=== PATIENT | male | born 1985 | race Caucasian/White ===

== ENCOUNTER 2020-03-29 19:00 | Emergency (ER) | payer OTHER, SELFPAY ==
[2020-03-29 19:02] VITALS: BP 174/86; PULSE 93; RESP 22; TEMP 36.6; O2SAT 96; BMI 34.3
--- NOTE | 2020-03-29 19:20 | XR_ITS ---
EXAMINATION: XR CHEST CLINICAL INFORMATION: Asthma exacerbation COMPARISON: 02/19/2020 TECHNIQUE: 2 views of the chest were obtained. FINDINGS: No significant abnormality is noted involving the heart, lungs, mediastinum, bony thorax or soft tissues. XR/XR chest 2V IMPRESSION: Unremarkable examination.
--- NOTE | 2020-03-29 19:24 | ED.ASTHMA ---
HPI - Asthma General Chief Complaint: Asthma Stated Complaint: ASTHMA Time Seen by Provider: 03/29/20 19:20 Source: patient Mode of arrival: ambulatory Limitations: no limitations History of Present Illness HPI Narrative: 34 year old male comes into the ER tonight with c/o chest tightness and shortness of breath. H/O asthma, has albuterol mresuce inhaler as well as nebulizer at home. States he ran out of the solution medication for his neb treatments. Denies N/V/F/C, no COVID-19 exposure. Admits to cough, productive some of the time. MD complaint: shortness of breath and wheezing Onset (ago): hour(s) (2-3 ) Severity: moderate Context: ran out of meds and allergen exposure Associated symptoms: productive cough (sometimes) Asthma History: childhood onset Treatments Prior to Arrival: inhaled bronchodilator and inhaled steroid Related Data Current Asthma Therapy: inhaled bronchodilator and inhaled steroid Previous Rx's Medication Instructions Recorded atorvastatin 20 mg tablet 20 mg PO DAILY 30 Days #30 tab 03/03/20 fluticasone 232mcg-salmeterol 1 inh INHALATION BID 30 Days #1 ea 03/03/20 14mcg/actuation breath act,powder sensor omeprazole 20 mg capsule,delayed 20 mg PO DAILY 30 Days #30 cap 03/03/20 release albuterol sulfate 0.63 mg INHALATION Q4-6H PRN #75 ml 03/29/20 albuterol sulfate 2 puff INHALATION Q6H PRN #8.5 g 03/29/20 Allergies Allergy/AdvReac Type Severity Reaction Status Date / Time banana [BANANA] Allergy Unknown ITCHING Verified 03/29/20 19:05 Review of Systems Constitutional: Constitutional: Denies body ache(s), Denies chills, Denies fatigue, Denies fever(s), Denies frequent falls, Denies headache(s), Denies malaise and Denies weakness Eyes: Eyes: Denies change in vision, Denies itchy eyes, Denies other visual disturbances, Denies eye pain and Denies requires corrective lenses ENT: Denies change in voice, Denies dysphagia, Denies dizziness, Denies headache(s), Denies hearing loss, Denies nasal discharge, Denies neck pain, Denies sinus pressure and Denies sore throat Cardiovascular: Cardiovascular: Denies chest pain, Denies Epigastric Pain, Denies syncope, Denies leg edema, Denies lightheadedness, Reports dyspnea and Reports dyspnea on exertion Respiratory: Respiratory: Reports chest congestion, Reports cough, Reports dyspnea, Reports dyspnea on exertion and Reports wheezing Gastrointestinal: Gastrointestinal: Denies abdominal pain, Denies change in bowel habits, Denies constipation, Denies dysphagia, Denies diarrhea, Denies nausea and Denies vomiting Genitourinary: Genitourinary: Denies difficulty urinating, Denies dysuria, Denies flank pain, Denies urinary frequency and Denies urinary incontinence Musculoskeletal: Musculoskeletal: Denies abnormal gait, Denies back pain, Denies myalgias, Denies deformity, Denies arthralgias, Denies muscle weakness, Denies neck pain, Denies stiffness and Denies tingling Integumentary/Breasts: Skin/Breast: Denies swelling, Denies pruritus, Denies lesions, Denies nail changes, Denies erythema, Denies rash, Denies sores and Denies unusual bruising Neurologic: Denies abnormal gait, Denies dizziness, Denies syncope, Denies frequent falls, Denies headache(s), Denies memory loss, Denies tingling and Denies weakness Psychiatric: Psychiatric: Denies anxiety, Denies depression, Denies irritability and Denies memory loss Endocrine: Endocrine: Denies fatigue Hematologic/Lymphatic: Hematologic/Lymphatic: Denies easy bleeding, Denies easy bruising and Denies lymphadenopathy Allergic/Immunologic: Allergic/Immunologic: Denies itchy eyes and Reports wheezing PMFSH Past Medical History Medical History (Updated 03/29/20 @ 20:50 by DANIELLA Ansari) Asthma GERD (gastroesophageal reflux disease) Surgical History (Updated 03/17/20 @ 06:02 by TOMEKA Carbone) History of facial surgery Family History Family History (Updated 03/17/20 @ 06:03 by TOMEKA Carbone) Father Alive and well Mother Alive and well Family/Other Cancer Social History Social History Advance Directives: No Advance Directives Information Provided: No Physical Exam Vital Signs: Vital Signs: Vital Signs Temp Pulse Resp BP Pulse Ox 03/29/20 20:53 89 17 151/98 H 96 03/29/20 19:02 97.8 F 93 22 H 174/86 H 96 Body Mass Index 34.3 Const: General: cooperative, well developed, alert, awake, acute distress (respiratory) moderate and anxious Nutritional Appearance: well nourished Orientation/consciousness: patient oriented x3 Limitations: no limitations HENMT: Head: Yes normal to inspection Ears: hearing grossly normal bilaterally Mouth: Normal oral and palatal mucosa present and tongue abnormal Throat: Yes posterior oropharynx normal Eyes: General: appearance normal, both eyes and all related structures Neck: Neck: Yes normal visual inspection, Yes full ROM and No lymphadenopathy Chest: Chest palpation & inspection: normal inspection of the chest Resp: Effort & Inspection: Actively coughing and respiratory distress Auscultation: wheezes expiratory wheezes, inspiratory wheezes, lower bilaterally, upper bilaterally and posterior Cardio: Jugular venous distension: no JVD Rate: regular rate Rhythm: regular rhythm GI: Inspection: Yes normal to inspection Skin: General skin exam: no rashes or lesions noted Nails: normal, no clubbing, no splinter hemorrhages and no spooning Neuro: General: patient oriented x3 Cognition (Neuro): normal cognition Gait exam (Neuro): Normal gait present Extrem: General: Yes normal to inspection, Yes no pedal edema, Yes normal gait, No calf tenderness, No clubbing, No cyanosis and No pedal edema Psych: Appearance: grossly normal Mental Status: mental status grossly normal Speech and movement: Normal speech and movement present Affect: normal affect Attitude: cooperative Thought process: Normal thought process present Thought content: Normal thought content present Insight: Good insight present (Psych) Judgement: Good judgement present (Psych) Course Course Course Narrative: Evaluated for exacerbation of asthma. Ausculation revealed bilateral inspir/expir wheezing. Recommend CXR, PO steroids and Resp TX MDM - Asthma MDM Narrative Medical decision making narrative: Asthma Differential Diagnosis Differential diagnosis: Likely Acute exacerbation, Acute asthmatic bronchitis and Pneumonia Imaging Data Chest x-ray: Radiologist's impression: [address] [address] XRay Report Signed Patient: Ava Richards#: [id number] : 1985Acct:[id number] Age/Sex: 34 / MADM Date: 03/29/20 Loc: HO.ED Attending Dr: Ordering Physician: ASHVIN LEIGH Date of Service: 03/29/20 Procedure(s): XR chest 2V Accession Number(s): [id number] cc: ASHVIN LEIGH~ EXAMINATION: XR CHEST CLINICAL INFORMATION: Asthma exacerbation COMPARISON: 02/19/2020 TECHNIQUE: 2 views of the chest were obtained. FINDINGS: No significant abnormality is noted involving the heart, lungs, mediastinum, bony thorax or soft tissues. XR/XR chest 2V IMPRESSION: Unremarkable examination. Dictated By:GARY LAROSE MD Signed By:<Electronically signed by GARY LAROSE MD in OV>03/29/201931 DD/ 19 TD/TT: Supervisor Dog License Officer: [address] [address] XRay Report Signed Patient: Ava Richards#: [id number] : 1985Acct:[id number] Age/Sex: 34 / MADM Date: 03/29/20 Loc: .ED Attending Dr: Ordering Physician: ASHVIN LEIGH Date of Service: 03/29/20 Procedure(s): XR chest 2V Accession Number(s): [id number] cc: ASHVIN LEIGH~ EXAMINATION: XR CHEST CLINICAL INFORMATION: Asthma exacerbation COMPARISON: 02/19/2020 TECHNIQUE: 2 views of the chest were obtained. FINDINGS: No significant abnormality is noted involving the heart, lungs, mediastinum, bony thorax or soft tissues. XR/XR chest 2V IMPRESSION: Unremarkable examination. Dictated By:GARY LAROSE MD Signed By:<Electronically signed by GARY LAROSE MD in OV>03/29/201931 DD/ 19 TD/TT: Supervisor Dog License Officer: [address] [address] XRay Report Signed Patient: Ava Richards#: [id number] : 1985Acct:[id number] Age/Sex: 34 / MADM Date: 03/29/20 Loc: .ED Attending Dr: Ordering Physician: ASHVIN LEIGH Date of Service: 03/29/20 Procedure(s): XR chest 2V Accession Number(s): [id number] cc: ASHVIN LEIGH~ EXAMINATION: XR CHEST CLINICAL INFORMATION: Asthma exacerbation COMPARISON: 02/19/2020 TECHNIQUE: 2 views of the chest were obtained. FINDINGS: No significant abnormality is noted involving the heart, lungs, mediastinum, bony thorax or soft tissues. XR/XR chest 2V IMPRESSION: Unremarkable examination. Dictated By:GARY LAROSE MD Signed By:<Electronically signed by GARY LAROSE MD in OV>03/29/201931 DD/ 19 TD/TT: Supervisor Dog License Officer: [place] [address] XRay Report Signed Patient: Ava Richards#: [id number] : 1985Acct:[id number] Age/Sex: 34 / MADM Date: 03/29/20 Loc: .ED Attending Dr: Ordering Physician: ASHVIN LEIGH Date of Service: 03/29/20 Procedure(s): XR chest 2V Accession Number(s): [id number] cc: ASHVIN LEIGH~ EXAMINATION: XR CHEST CLINICAL INFORMATION: Asthma exacerbation COMPARISON: 02/19/2020 TECHNIQUE: 2 views of the chest were obtained. FINDINGS: No significant abnormality is noted involving the heart, lungs, mediastinum, bony thorax or soft tissues. XR/XR chest 2V IMPRESSION: Unremarkable examination. Dictated By:GARY LAROSE MD Signed By:<Electronically signed by GARY LAROSE MD in OV>03/29/201931 DD/ 19 TD/TT: Supervisor Dog License Officer: Discharge Plan Discharge Clinical Impression: Moderate persistent asthma Patient Disposition: Home, Self-Care Instructions: Asthma (ED) Prescriptions: New albuterol sulfate 90 mcg/actuation HFA aerosol inhaler 2 puff inhalation Q6H PRN (Reason: shortness of breath or wheezing) Qty: 8.5 RF: 2 albuterol sulfate 0.63 mg/3 mL solution for nebulization 0.63 mg inhalation Q4-6H PRN (Reason: shortness of breath or wheezing) Qty: 75 RF: 0 No Action AirDuo Digihaler 232-14 mcg/actuation aero powdr breath act w/sensor 1 inh inhalation BID 30 Days Qty: 1 RF: 2 atorvastatin 20 mg tablet 20 mg PO DAILY 30 Days Qty: 30 RF: 3 omeprazole 20 mg capsule,delayed release(DR/EC) 20 mg PO DAILY 30 Days Qty: 30 RF: 3 Interventions: ED Discharge Assessment Last Done: 03/29/20 21:07 Discharge Date/Time: 03/29/20 21:07
[2020-03-29] MEDS: predniSONE 20 MG TABLET 60 MG PO (19:33)
[2020-03-29] MEDS: Albuterol/Iprat 2.5/0.5MG 3 ML AMPUL.NEB INHALE (20:35)
[2020-03-29 20:53] VITALS: BP 151/98; PULSE 89; RESP 17; O2SAT 96
== END 2020-03-29 21:07 | disposition home or self-care (01) ==
PROVIDERS: Emergency Provider Internal Medicine; PCP Physician Assistant
DX: J45.40 Moderate persistent asthma, uncomplicated (principal); Z79.899 Other long term (current) drug therapy; Z20.828 Contact with and (suspected) exposure to other viral communicable diseases
CPT/HCPCS: 71046; 99284

== ENCOUNTER 2020-05-09 09:50 | Outpatient (REF) | payer OTHER, SELFPAY ==
--- NOTE | 2020-05-09 13:22 | PFT_ITS ---
Forced vital capacity is normal. FEV1 is slightly reduced. FEF 25-75 is moderately reduced. MVV is slightly reduced. Bronchodilator challenge was not done as patient had used the rescue inhaler just before coming for the test. Total lung capacity, normal. Residual volume moderately increased. Diffusion capacity normal. CONCLUSION: These results show mild degree of obstructive airway disorder. As noted above bronchodilator challenge was not performed. Clinical correlation recommended. MD [facility] Hawthorne/GUILLAUME / [id number]
== END 2020-05-09 09:51 | disposition home or self-care (01) ==
LOC: HO.RESP 09:50
PROVIDERS: PCP Internal Medicine; Visit Provider Physician Assistant
DX: J45.40 Moderate persistent asthma, uncomplicated (principal)
CPT/HCPCS: 94010; 94727; 94729

== ENCOUNTER → 2020-05-13 08:16 | Outpatient (BNVA) | payer OTHER, SELFPAY | PROVIDERS: PCP Internal Medicine; Visit Provider Nurse Practitioner Family | DX: Z76.89 Persons encountering health services in other specified circumstances (principal) ==

== ENCOUNTER → 2020-07-22 09:57 | Outpatient (BNVA) | payer OTHER, SELFPAY | PROVIDERS: PCP Internal Medicine; Visit Provider Nurse Practitioner Family ==

== ENCOUNTER 2020-08-06 11:40 | Emergency (ER) | payer OTHER, SELFPAY ==
--- NOTE | ~2020-08-06 | XR_ITS ---
EXAMINATION: XR CHEST CLINICAL INFORMATION: Asthma COMPARISON: Chest radiographs 03/29/2020, 02/19/2020 TECHNIQUE: Portable upright AP view of the chest was obtained. FINDINGS: The lungs are clear. There is no airspace consolidation or groundglass opacity. No hyperinflation. No bronchiolar wall thickening. No pneumothorax or pleural reaction. The costophrenic sulci are clear. The heart is normal in size. The hilar and mediastinal contours and bony structures are unremarkable. XR/XR chest 1V IMPRESSION: Normal portable AP chest.
[2020-08-06 12:15] VITALS: BP 153/85; PULSE 86; RESP 16; TEMP 36.7; O2SAT 93; BMI 34.3
--- NOTE | 2020-08-06 12:43 | ECG_ITS ---
Test Reason : ASTHMA Blood Pressure : / mmHG Vent. Rate : 087 BPM Atrial Rate : 087 BPM P-R Int : 130 ms QRS Dur : 106 ms QT Int : 370 ms P-R-T Axes : 058 068 005 degrees QTc Int : 445 ms Normal sinus rhythm Normal ECG When compared with ECG of 19-FEB-2020 14:07, No significant change was found Referred By: Teresita Tovar Electronically Signed By:Manfred Cooper
[2020-08-06] MEDS: Albuterol Sulfate 90 MCG 8 GM INHALER 4 PUFF INHALE (13:23)
[2020-08-06] MEDS: Magnesium Sulfate/H2O 2 GM/50 ML PIGGYBACK IV (13:23)
[2020-08-06] MEDS: methylPREDNISolone Sod Succ 125 MG/2 ML VIAL IVPUSH (13:23)
--- NOTE | 2020-08-06 13:28 | ED.ASTHMA ---
HPI - Asthma General Chief Complaint: Asthma Stated Complaint: difficulty breathing - asthma Time Seen by Provider: 08/06/20 12:07 Source: patient Mode of arrival: ambulatory History of Present Illness HPI Narrative: 34-year-old male with a past medical history of asthma, GERD, presenting to the ED complaining of asthma exacerbation since yesterday with worsening SOB, dry cough, wheezing and chest tightness. Admits to using inhaler and neb machine at home with little relief. Denies fever, chills, recent travel, sick contacts, LE edema, exposure COVID-19 MD complaint: asthma attack , shortness of breath and wheezing Onset (ago): day(s) Related Data Previous Rx's Medication Instructions Recorded fluticasone 232mcg-salmeterol 1 inh INHALATION BID 30 Days #1 ea 03/03/20 14mcg/actuation breath act,powder sensor albuterol sulfate 0.63 mg INHALATION Q4-6H PRN #75 ml 03/29/20 montelukast 10 mg tablet 10 mg PO BEDTIME 30 Days #30 tab 04/21/20 albuterol sulfate 90 mcg/actuation 2 puff INHALATION Q6H PRN 30 Days 07/29/20 aerosol inhaler #8.5 g atorvastatin 20 mg tablet 20 mg PO DAILY 30 Days #30 tab 07/29/20 omeprazole 20 mg capsule,delayed 20 mg PO DAILY 30 Days #30 cap 07/29/20 release albuterol sulfate 5 mg INHALATION Q4H PRN #30 ea 08/06/20 benzonatate [Tessalon Perles] 100 mg PO TID PRN #14 cap 08/06/20 prednisone 40 mg PO DAILY 5 Days #10 tab 08/06/20 Allergies Allergy/AdvReac Type Severity Reaction Status Date / Time banana [BANANA] Allergy Unknown ITCHING Verified 08/06/20 12:17 Review of Systems Review of Systems: Constitutional: No Fever, No Chills Cardiovascular: +Chest Pain, + SOB, No Dyspnea on Exertion, No Edema Respiratory: + Cough, No Sputum, +Wheezing Gastrointestinal: No Nausea, No Vomiting, No Abdominal pain Musculoskeletal: No joint pain, No Myalgias Skin: No Skin Lesions, No rash Yes all other systems are reviewed and are negative PMFSH Past Medical History Attestation statement: The following information was validated with the patient. Medical History (Updated 08/06/20 @ 15:14 by DANIELLA Soto) Asthma GERD (gastroesophageal reflux disease) Surgical History History of facial surgery Family History Family History (Updated 03/17/20 @ 06:03 by Betzaida George David) Father Alive and well Mother Alive and well Family/Other Cancer Social History Social History (Updated 07/22/20 @ 09:55 by Licha Bradley David) Smoking Status: Former smoker Advance Directives: Yes Advance Directives Information Provided: No Advance Directives on File: No Physical Exam Vital Signs: Vital Signs: Last Vital Signs Temp 98.0 F 08/06/20 12:15 Pulse 86 08/06/20 14:50 Resp 16 08/06/20 12:15 BP 153/85 H 08/06/20 12:15 Pulse Ox 93 08/06/20 12:15 Body Mass Index 34.3 Const: General: cooperative, healthy appearing and comfortable Orientation/consciousness: patient oriented x3 Limitations: no limitations HENMT: Head: Yes normal to inspection Ears: hearing grossly normal bilaterally General nose exam: Normal external nose present Face and sinus: Yes normal facial exam Eyes: General: appearance normal, both eyes and all related structures EOM: EOMs intact bilaterally Neck: Neck: Yes normal visual inspection Resp: Effort & Inspection: normal respiratory effort Auscultation: wheezes expiratory wheezes and throughout Cardio: Rate: regular rate Heart sounds: S1 normal heart sound present and S2 normal heart sound present GI: Inspection: Yes normal to inspection Skin: Rashes: no rashes Wounds: no wounds Neuro: General: patient oriented x3 Gait exam (Neuro): Normal gait present Extrem: General: Yes normal to inspection, Yes no pedal edema and Yes no calf tenderness Course Course Course Narrative: XR chest 1V IMPRESSION: Normal portable AP chest. -labs unremarkable including troponin. COVID-19/influenza/RSV negative -1513--on re-evaluation patient reports symptomatic improvement, lungs CTA. Worrisome signs and symptoms and strict return precautions discussed. Patient verbalized understanding and feels safe for discharge home MDM - Asthma MDM Narrative Medical decision making narrative: 34-year-old male with a past medical history of asthma, GERD, presenting to the ED complaining of asthma exacerbation since yesterday with worsening SOB, dry cough, wheezing and chest tightness. On exam VSS, NAD/well-appearing, sating 93% on RA, with exp wheeze throughout, in no respiratory distress. Concern for asthma exacerbation vs viral syndrome/COVID-19. Rule out pneumonia. Lower concern for PE/ACS/CHF Plan: EKG, labs, CXR, Solu-Medrol, magnesium, albuterol, COVID-19 testing Medical Records Attestation: I reviewed the patient's medical records. Lab Data Attestation: I reviewed the patient's lab results. Result diagrams: 08/06/20 13:22 08/06/20 13:22 Labs: Lab Results 08/06/20 08/06/20 08/06/20 Range/Units 13:21 13:22 13:22 WBC 6.8 (4.8-10.8) X10*3/uL RBC 4.86 (4.60-5.80) X10*6/uL Hgb 15.1 (14.0-18.0) g/dl Hct 44.4 (42-52) % MCV 91.4 (80-98) fL MCH 31.1 (27.0-33.0) pg MCHC 34.0 (31.0-36.0) g/dl RDW 11.9 (11.0-16.0) % Plt Count 190 (160-400) X10*3/uL MPV 12.6 H (9.4-12.4) fL Immature Gran % (Auto) 0.3 (0.0-0.4) % Neut % (Auto) 40.5 L (45-73) % Lymph % (Auto) 40.2 H (20-40) % [place] % (Auto) 8.4 (2-11) % Eos % (Auto) 9.7 H (0-4) % Baso % (Auto) 0.9 (0-2) % Lymph # (Auto) 2.7 (1.2-4.9) X10*3/uL [place] # (Auto) 0.6 (0.1-1.2) X10*3/uL Eos # (Auto) 0.7 H (0.0-0.4) X10*3/uL Baso # (Auto) 0.1 (0.0-0.2) X10*3/uL Abs Immat Gran (auto) 0.02 (0.00-0.03) X10*3/uL Absolute Neuts (auto) 2.8 (2.0-8.3) X10*3/uL Absolute Nucleated RBC 0.000 (0.0-0.012) X10*3/uL Nucleated RBC % (auto) 0.0 (0.0-0.2) /100WBC Smear Tech's Comments Not Reportable Hold Blue Top SEE NOTE Sodium 140 (135-145) mmol/L Potassium 4.4 (3.3-5.1) mmol/L Chloride 106 (96-108) mmol/L Carbon Dioxide 28 (22-29) mmol/L Anion Gap 10 L (12-20) BUN 11 (9-16) mg/dL Creatinine 0.91 (0.5-1.4) mg/dL Estim Creat Clear Calc 115.0 Estimated GFR > 60 Random Glucose 94 (60-115) mg/dL Calcium 9.3 (8.4-10.2) mg/dL Troponin I High Sens (<3.5-35.0) ng/L Coronavirus (PCR) (Negative) Influenza Type A (PCR) (Negative) Influenza Type B (PCR) (Negative) RSV RNA Qual (PCR) (Negative) 08/06/20 08/06/20 Range/Units 13:22 13:22 WBC (4.8-10.8) X10*3/uL RBC (4.60-5.80) X10*6/uL Hgb (14.0-18.0) g/dl Hct (42-52) % MCV (80-98) fL MCH (27.0-33.0) pg MCHC (31.0-36.0) g/dl RDW (11.0-16.0) % Plt Count (160-400) X10*3/uL MPV (9.4-12.4) fL Immature Gran % (Auto) (0.0-0.4) % Neut % (Auto) (45-73) % Lymph % (Auto) (20-40) % [place] % (Auto) (2-11) % Eos % (Auto) (0-4) % Baso % (Auto) (0-2) % Lymph # (Auto) (1.2-4.9) X10*3/uL [place] # (Auto) (0.1-1.2) X10*3/uL Eos # (Auto) (0.0-0.4) X10*3/uL Baso # (Auto) (0.0-0.2) X10*3/uL Abs Immat Gran (auto) (0.00-0.03) X10*3/uL Absolute Neuts (auto) (2.0-8.3) X10*3/uL Absolute Nucleated RBC (0.0-0.012) X10*3/uL Nucleated RBC % (auto) (0.0-0.2) /100WBC Smear Tech's Comments Hold Blue Top Sodium (135-145) mmol/L Potassium (3.3-5.1) mmol/L Chloride (96-108) mmol/L Carbon Dioxide (22-29) mmol/L Anion Gap (12-20) BUN (9-16) mg/dL Creatinine (0.5-1.4) mg/dL Estim Creat Clear Calc Estimated GFR Random Glucose (60-115) mg/dL Calcium (8.4-10.2) mg/dL Troponin I High Sens < 3.5 (<3.5-35.0) ng/L Coronavirus (PCR) NEGATIVE (Negative) Influenza Type A (PCR) NEGATIVE (Negative) Influenza Type B (PCR) NEGATIVE (Negative) RSV RNA Qual (PCR) NEGATIVE (Negative) ECG Data Attestation: I personally reviewed and interpreted this ECG as follows: ECG interpretation date: 08/06/20 ECG interpretation time: 12:58 Interpretation: EKG normal sinus rhythm. Rate of 87. Inverted T-wave in leads 3. No STEMI Discharge Plan Discharge Clinical Impression: Asthma with acute exacerbation Qualifiers: Asthma severity: mild Asthma persistence: unspecified Qualified Code(s): J45.901 - Unspecified asthma with (acute) exacerbation Patient Disposition: Home, Self-Care Instructions: Asthma (ED) Additional Instructions: Your blood work and chest x-ray were reassuring today in the ED. You tested negative for COVID-19, the flu, and RSV Continue to use her neb machine, inhalers, and prednisone which is a steroid at home as prescribed Follow-up with your primary care doctor If her symptoms persist or worsen have constant worsening shortness breath, or chest pain, or fever return to the ED [facility] for cough, take as needed Prescriptions: New prednisone 20 mg tablet 40 mg PO DAILY 5 Days Qty: 10 RF: 0 benzonatate [Tessalon Perles] 100 mg capsule 100 mg PO TID PRN (Reason: cough) Qty: 14 RF: 0 albuterol sulfate 2.5 mg/0.5 mL solution for nebulization 5 mg inhalation Q4H PRN (Reason: shortness of breath or wheezing) Qty: 30 RF: 0 No Action AirDuo Digihaler 232-14 mcg/actuation aero powdr breath act w/sensor 1 inh inhalation BID 30 Days Qty: 1 RF: 2 omeprazole 20 mg capsule,delayed release(DR/EC) 20 mg PO DAILY 30 Days Qty: 30 RF: 3 atorvastatin 20 mg tablet 20 mg PO DAILY 30 Days Qty: 30 RF: 3 albuterol sulfate [ProAir HFA] 90 mcg/actuation HFA aerosol inhaler 2 puff inhalation Q6H PRN (Reason: shortness of breath or wheezing) 30 Days Qty: 8.5 RF: 3 albuterol sulfate 0.63 mg/3 mL solution for nebulization 0.63 mg inhalation Q4-6H PRN (Reason: shortness of breath or wheezing) Qty: 75 RF: 0 montelukast [Singulair] 10 mg tablet 10 mg PO BEDTIME 30 Days Qty: 30 RF: 2 Referrals: Jeana Fay MD [Primary Care Provider] - 2 days
[2020-08-06 13:39] LABS: Eosinophils Percent Auto 9.7 % (0-4); Hematocrit 44.4 % (42-52); Hemoglobin 15.1 g/dl (14.0-18.0); Imm Gran Abs Auto 0.02 X10*3/uL (0.00-0.03); Imm Gran Pct Auto 0.3 % (0.0-0.4); MANUAL DIFF FLAG SCAN; Mean Corpuscular Hemoglobin 31.1 pg (27.0-33.0); Neutrophils Absolute Auto 2.8 X10*3/uL (2.0-8.3); Red Cell Distribution Width 11.9 % (11.0-16.0); SCAN SMEAR FLAG 1
[2020-08-06 13:41] LABS: Basophils Absolute Auto 0.1 X10*3/uL (0.0-0.2); Basophils Percent Auto 0.9 % (0-2); Eosinophils Absolute Auto 0.7 X10*3/uL (0.0-0.4); Lymphocytes Absolute Auto 2.7 X10*3/uL (1.2-4.9); Lymphocytes Percent Auto 40.2 % (20-40); Mean Corpuscular Volume 91.4 fL (80-98); Mean Platelet Volume 12.6 fL (9.4-12.4); Monocytes Absolute Auto 0.6 X10*3/uL (0.1-1.2); Monocytes Percent Auto 8.4 % (2-11); Neutrophils Percent Auto 40.5 % (45-73); Platelet Count 190 X10*3/uL (160-400); Red Blood Count 4.86 X10*6/uL (4.60-5.80); White Blood Count 6.8 X10*3/uL (4.8-10.8)
[2020-08-06 13:48] LABS: PLT ABN DIST 1
[2020-08-06 14:11] LABS: Influenza A PCR NEGATIVE (Negative); Influenza B PCR NEGATIVE (Negative); Resp Syncy Virus RNA Qual PCR NEGATIVE (Negative); SARS COV2 PCR INHOUSE NEGATIVE (Negative)
[2020-08-06 14:16] LABS: Anion Gap 10 (12-20); Blood Urea Nitrogen 11 mg/dL (9-16); Calcium 9.3 mg/dL (8.4-10.2); Carbon Dioxide 28 mmol/L (22-29); Chloride 106 mmol/L (96-108); Estimated Glomerular Filt Rate > 60; Glucose Random 94 mg/dL (60-115); Potassium 4.4 mmol/L (3.3-5.1); Sodium 140 mmol/L (135-145)
[2020-08-06 14:21] LABS: Troponin-I High Sensitivity < 3.5 ng/L (<3.5-35.0)
[2020-08-06] MEDS: Albuterol/Iprat 2.5/0.5MG 3 ML AMPUL.NEB INHALE (14:49)
[2020-08-06 14:50] VITALS: PULSE 86; O2SAT 93
== END 2020-08-06 15:30 | disposition home or self-care (01) ==
PROVIDERS: Physician Assistant; Emergency Provider Emergency Medicine Emergency Medical Services; PCP Internal Medicine
DX: J45.901 Unspecified asthma with (acute) exacerbation (principal); Z20.822 Contact with and (suspected) exposure to COVID-19; Z79.899 Other long term (current) drug therapy
CPT/HCPCS: 0241U; 36415; 71045; 80048; 84484; 85025; 93005; 94640; 96365; 96366; 96374; 99283; 99284; J2930; J3475

== ENCOUNTER 2020-09-15 20:23 | Emergency (ER) | payer OTHER, SELFPAY ==
--- NOTE | ~2020-09-15 | XR_ITS ---
EXAMINATION: XR CHEST CLINICAL INFORMATION: Cough COMPARISON: 08/06/2020 TECHNIQUE: Frontal view of the chest was obtained. FINDINGS: Cardiac leads overlie the chest. The lungs are well expanded. There is no focal consolidation, edema, or effusion. No pneumothorax. The cardiomediastinal silhouette is within normal limits. No acute osseous abnormality. XR/XR chest 1V IMPRESSION: Clear lungs.
[2020-09-15 21:50] VITALS: BP 144/91; PULSE 102; RESP 16; TEMP 36.2; O2SAT 97; BMI 36.8
[2020-09-15 22:58] LABS: Influenza A PCR NEGATIVE (Negative); Influenza B PCR NEGATIVE (Negative); Resp Syncy Virus RNA Qual PCR NEGATIVE (Negative); SARS COV2 PCR INHOUSE NEGATIVE (Negative)
--- NOTE | 2020-09-15 23:22 | ED.URI ---
HPI - URI/Sore Throat General Chief Complaint: Upper Respiratory Symptoms Stated Complaint: SINUS INFECTION? Time Seen by Provider: 09/15/20 23:21 Source: patient Mode of arrival: ambulatory Limitations: no limitations History of Present Illness HPI Narrative: 34 yo male with asthma here with 1 day of chills, cough, wheezing, runny nose, chest congestion - COVID negative, used prednisone about a month ago, home bronchodilators not working MD elicited complaint: cough and nasal congestion Pertinent past history: asthma Onset (ago): day(s) (1) Consistency: constant Severity: moderate Able to tolerate fluids by mouth: Yes Exacerbating factors: nothing Relieving factors: nothing Associated symptoms: chills, myalgias, rhinorrhea and cough Related Data Previous Rx's Medication Instructions Recorded fluticasone 232mcg-salmeterol 1 inh INHALATION BID 30 Days #1 ea 03/03/20 14mcg/actuation breath act,powder sensor albuterol sulfate 0.63 mg INHALATION Q4-6H PRN #75 ml 03/29/20 albuterol sulfate 90 mcg/actuation 2 puff INHALATION Q6H PRN 30 Days 07/29/20 aerosol inhaler #8.5 g albuterol sulfate 5 mg INHALATION Q4H PRN #30 ea 08/06/20 benzonatate [Tessalon Perles] 100 mg PO TID PRN #14 cap 08/06/20 atorvastatin 20 mg tablet 20 mg PO DAILY 30 Days #30 tab 08/14/20 montelukast 10 mg tablet 10 mg PO BEDTIME 30 Days #30 tab 08/14/20 omeprazole 20 mg capsule,delayed 20 mg PO DAILY 30 Days #30 cap 08/14/20 release azithromycin See Rx Instructions .ROUTE 09/16/20 .COMPLEX #6 tab benzonatate [Tessalon Perles] 100 mg PO TID PRN #20 cap 09/16/20 prednisone 40 mg PO DAILY 4 Days #8 tab 09/16/20 Allergies Allergy/AdvReac Type Severity Reaction Status Date / Time banana [BANANA] Allergy Unknown ITCHING Verified 09/15/20 21:52 Review of Systems Review of Systems: Constitutional : No Fever, No Chills ENT/Mouth : No Hoarseness, No sore throat, pos Rhinorrhea Eyes: No Redness, No Discharge, No Vision Changes Cardiovascular : No Chest Pain, positive SOB, positive Dyspnea on Exertion, No Edema Respiratory : positive Cough, No Sputum, positive Wheezing, Gastrointestinal : No Nausea, No Vomiting, No Diarrhea, No abdominal Pain Genitourinary : No Dysuria, No Hematuria Musculoskeletal : No joint pain, No Myalgias Skin : No rash Neuro : No Weakness, No Numbness, No Headache Psych : No anxiety, depression Heme/Lymph: No Bruising, No Bleeding Endocrine : No Polyuria, No Polydipsia All other systems reviewed and are negative [facility] Past Medical History Attestation statement: The following information was validated with the patient. Medical History Asthma GERD (gastroesophageal reflux disease) Surgical History History of facial surgery Family History Family History Father Alive and well Mother Alive and well Family/Other Cancer Social History Social History Smoking Status: Former smoker Advance Directives: No Physical Exam Vital Signs: Vital Signs: Last Vital Signs Temp 97.1 F 09/15/20 21:50 Pulse 106 H 09/15/20 23:49 Resp 18 09/15/20 23:51 BP 127/71 09/15/20 23:49 Pulse Ox 100 09/15/20 23:49 Body Mass Index 36.8 Appearance: Alert. Oriented X3. No acute distress. Eyes: Pupils equal, round and reactive to light. ENT: Pharynx normal. Neck: Normal inspection. Neck supple. CVS: Normal heart rate and rhythm. Pulses normal. Respiratory: No respiratory distress. Breath sounds exp wheezes noted throughout Abdomen: Soft and nontender. Skin: Skin warm and dry. Normal skin color. Normal skin turgor. Extremities: No lower extremity edema. No calf ttp Neuro: Oriented X 3. No motor deficit. No sensory deficit. Course Course Course Narrative: clear lungs 98% on RA, anticipate DC MDM - URI/Sore Throat MDM Narrative Medical decision making narrative: 34 yo male with asthma here with 1 day of chills, cough, wheezing, runny nose, chest congestion - COVID negative, used prednisone about a month ago, home bronchodilators not working at this time will give 5mg neb, CXR, PO prednisone dispo per results and findings. Lab Data Labs: Lab Results 09/15/20 Range/Units 22:01 Coronavirus (PCR) NEGATIVE (Negative) Influenza Type A (PCR) NEGATIVE (Negative) Influenza Type B (PCR) NEGATIVE (Negative) RSV RNA Qual (PCR) NEGATIVE (Negative) Discharge Plan Discharge Clinical Impression: Bronchitis Moderate persistent asthma Qualifiers: Asthma complication type: with acute exacerbation Qualified Code(s): J45.41 - Moderate persistent asthma with (acute) exacerbation Patient Disposition: Home, Self-Care Instructions: Asthma (ED), Acute Bronchitis (ED) Additional Instructions: return to ED for any worsening symptoms or concerns NEGATIVE COVID Prescriptions: New prednisone 20 mg tablet 40 mg PO DAILY 4 Days Qty: 8 RF: 0 azithromycin 500 mg tablet See Rx Instructions .ROUTE .COMPLEX Qty: 6 RF: 0 benzonatate [Tessalon Perles] 100 mg capsule 100 mg PO TID PRN (Reason: cough) Qty: 20 RF: 0 No Action AirDuo Digihaler 232-14 mcg/actuation aero powdr breath act w/sensor 1 inh inhalation BID 30 Days Qty: 1 RF: 2 albuterol sulfate [ProAir HFA] 90 mcg/actuation HFA aerosol inhaler 2 puff inhalation Q6H PRN (Reason: shortness of breath or wheezing) 30 Days Qty: 8.5 RF: 3 albuterol sulfate 0.63 mg/3 mL solution for nebulization 0.63 mg inhalation Q4-6H PRN (Reason: shortness of breath or wheezing) Qty: 75 RF: 0 benzonatate [Tessalon Perles] 100 mg capsule 100 mg PO TID PRN (Reason: cough) Qty: 14 RF: 0 albuterol sulfate 2.5 mg/0.5 mL solution for nebulization 5 mg inhalation Q4H PRN (Reason: shortness of breath or wheezing) Qty: 30 RF: 0 montelukast [Singulair] 10 mg tablet 10 mg PO BEDTIME 30 Days Qty: 30 RF: 4 atorvastatin 20 mg tablet 20 mg PO DAILY 30 Days Qty: 30 RF: 3 omeprazole 20 mg capsule,delayed release(DR/EC) 20 mg PO DAILY 30 Days Qty: 30 RF: 3 Referrals: Tanner Chiang PA-C [Primary Care Provider] - 2 days (IF NOT better)
--- NOTE | 2020-09-15 23:25 | PC.NURSE ---
patient is ambulatory to the room with a steady gait, speaking in full sentences while ambulating
[2020-09-15] MEDS: Albuterol Sulfate (0.083%) 2.5 MG/3 ML VIAL.NEB 5 MG INHALE (23:40)
[2020-09-15 23:42] VITALS: PULSE 103; O2SAT 100
[2020-09-15] MEDS: predniSONE 20 MG TABLET 60 MG PO (23:47)
--- NOTE | 2020-09-15 23:48 | PC.NURSE ---
patient is doing an hour long neb, medicated with Prednisone per order, vitals stable
[2020-09-15 23:49] VITALS: BP 127/71; PULSE 106; RESP 18; O2SAT 100
[2020-09-15 23:51] VITALS: RESP 18
== END 2020-09-16 01:46 | disposition home or self-care (01) ==
PROVIDERS: Emergency Provider Emergency Medicine; PCP Physician Assistant
DX: J20.9 Acute bronchitis, unspecified (principal); J45.41 Moderate persistent asthma with (acute) exacerbation; Z20.822 Contact with and (suspected) exposure to COVID-19; Z87.891 Personal history of nicotine dependence; Z79.899 Other long term (current) drug therapy
CPT/HCPCS: 0241U; 36415; 71045; 94640; 99284

== ENCOUNTER → 2020-10-14 10:50 | Outpatient (BNVA) | payer OTHER, SELFPAY | PROVIDERS: PCP Physician Assistant; Visit Provider Nurse Practitioner Family ==

== ENCOUNTER 2021-02-10 12:07 | Emergency (ER) | payer OTHER, SELFPAY ==
--- NOTE | ~2021-02-10 | XR_ITS ---
EXAMINATION: XR CHEST CLINICAL INFORMATION: Shortness of breath COMPARISON: Previous chest x-ray most recent August 2020 TECHNIQUE: Frontal view of the chest was obtained. FINDINGS: No significant abnormality is noted involving the heart, lungs, mediastinum, bony thorax or soft tissues. XR/XR chest 1V IMPRESSION: Unremarkable examination.
[2021-02-10 12:13] VITALS: O2SAT 97
[2021-02-10 12:15] VITALS: BP 135/76; PULSE 111; RESP 22; TEMP 36.7; O2SAT 95; BMI 38.6
--- NOTE | 2021-02-10 13:07 | ED.SOB ---
HPI - SOB/Dyspnea General Chief Complaint: Dyspnea Stated Complaint: DIFF BREATHING, HX OF ASTHMA Time Seen by Provider: 02/10/21 13:08 Source: patient Mode of arrival: ambulatory Limitations: no limitations History of Present Illness HPI Narrative: Patient history of asthma woke up today with increased shortness of breath similar to that in the past has slight cough in the evening time used nebulizer treatment earlier today prior to arrival still feeling little tight in the chest. Patient has not been vaccinated with COVID-19. No fever no chills no loss of taste sensation nobody else sick at home Related Data Previous Rx's Medication Instructions Recorded fluticasone 232mcg-salmeterol 1 inh INHALATION BID 30 Days #1 ea 03/03/20 14mcg/actuation breath act,powder sensor ([employer] Digihaler) albuterol sulfate 0.63 mg/3 mL 0.63 mg INHALATION Q4-6H PRN #75 ml 03/29/20 solution for nebulization albuterol sulfate 2.5 mg/0.5 mL 5 mg INHALATION Q4H PRN #30 ea 08/06/20 solution for nebulization benzonatate 100 mg capsule 100 mg PO TID PRN #14 cap 08/06/20 (Tessalon Pat) azithromycin 500 mg tablet See Rx Instructions .ROUTE 09/16/20 .COMPLEX #6 tab benzonatate 100 mg capsule 100 mg PO TID PRN #20 cap 09/16/20 (Tessalon Perles) prednisone 20 mg tablet 40 mg PO DAILY 4 Days #8 tab 09/16/20 albuterol sulfate 90 mcg/actuation 2 puff PO Q6H PRN 30 Days #8.5 g 10/28/20 aerosol inhaler (ProAir HFA) atorvastatin 20 mg tablet 20 mg PO DAILY #90 tab 11/14/20 montelukast 10 mg tablet 10 mg PO BEDTIME #90 tab 11/14/20 omeprazole 20 mg capsule,delayed 20 mg PO DAILY #90 cap 11/14/20 release prednisone 20 mg tablet 40 mg PO DAILY #10 tab 02/10/21 Allergies Allergy/AdvReac Type Severity Reaction Status Date / Time banana [BANANA] Allergy Unknown ITCHING Verified 09/15/20 21:52 Review of Systems Review of Systems: Yes all other systems are reviewed and are negative PMFSH Past Medical History Medical History Asthma GERD (gastroesophageal reflux disease) Surgical History History of facial surgery Family History Family History Father Alive and well Mother Alive and well Family/Other Cancer Social History Social History Advance Directives: No Advance Directives Information Provided: No Physical Exam Vital Signs: Vital Signs: Last Vital Signs Temp 98.1 F 02/10/21 12:15 Pulse 95 02/10/21 14:00 Resp 18 02/10/21 14:00 BP 140/89 H 02/10/21 14:00 Pulse Ox 98 02/10/21 14:00 Body Mass Index 38.6 Appearance: Alert. Oriented X3. No acute distress. ENT: Pharynx normal. Oral Mucosa moist Neck: Normal inspection. Neck supple. CVS: Normal heart rate and rhythm. Pulses normal. Respiratory: No respiratory distress. Equal air entry bilateral, no wheezing/rales/rhonchi prolonged expiration Abdomen: Soft and nontender. Bowel sounds are present, no mass palpable, no CVA tenderness Skin: Skin warm and dry. Normal skin color. Normal skin turgor. Extremities: No lower extremity edema. No calf tenderness Neuro: Oriented X 3. MDM - SOB/Dyspnea MDM Narrative Medical decision making narrative: Patient with mild asthma feeling much better after nebulizing treatment at home saturating 95% at room air in the ER will give him prednisone p.o. advised to follow-up with PCP to continue nebulizing treatment/inhaler at home Lab Data Attestation: I reviewed the patient's lab results. Labs: Lab Results 02/10/21 Range/Units 13:22 COVID-19 ([facility]) Negative (Negative) COVID-19 Clin Com See Note Discharge Plan Discharge Clinical Impression: Moderate persistent asthma Qualifiers: Asthma complication type: with acute exacerbation Qualified Code(s): J45.41 - Moderate persistent asthma with (acute) exacerbation Patient Disposition: Home, Self-Care Instructions: Asthma (ED) Additional Instructions: Continue inhaler/nebulizing treatment every 4-6 hours as needed Prednisone as advised Get COVID-19 vaccine Prescriptions: New prednisone 20 mg tablet 40 mg PO DAILY Qty: 10 RF: 0 No Action AirDuo Digihaler 232-14 mcg/actuation aero powdr breath act w/sensor 1 inh inhalation BID 30 Days Qty: 1 RF: 2 albuterol sulfate [ProAir HFA] 90 mcg/actuation HFA aerosol inhaler 2 puff PO Q6H PRN (Reason: for wheezing) 30 Days Qty: 8.5 RF: 4 atorvastatin 20 mg tablet 20 mg PO DAILY Qty: 90 RF: 1 omeprazole 20 mg capsule,delayed release(DR/EC) 20 mg PO DAILY Qty: 90 RF: 1 montelukast 10 mg tablet 10 mg PO BEDTIME Qty: 90 RF: 1 prednisone 20 mg tablet 40 mg PO DAILY 4 Days Qty: 8 RF: 0 azithromycin 500 mg tablet See Rx Instructions .ROUTE .COMPLEX Qty: 6 RF: 0 benzonatate [Tessalon Perles] 100 mg capsule 100 mg PO TID PRN (Reason: cough) Qty: 20 RF: 0 albuterol sulfate 0.63 mg/3 mL solution for nebulization 0.63 mg inhalation Q4-6H PRN (Reason: shortness of breath or wheezing) Qty: 75 RF: 0 benzonatate [Tessalon Perles] 100 mg capsule 100 mg PO TID PRN (Reason: cough) Qty: 14 RF: 0 albuterol sulfate 2.5 mg/0.5 mL solution for nebulization 5 mg inhalation Q4H PRN (Reason: shortness of breath or wheezing) Qty: 30 RF: 0 Interventions: ED Discharge Assessment Last Done: 02/10/21 14:35 Discharge Date/Time: 02/10/21 14:36
[2021-02-10 14:00] VITALS: BP 140/89; PULSE 95; RESP 18; O2SAT 98
[2021-02-10 14:01] LABS: COVID-19 Test Negative (Negative)
--- NOTE | 2021-02-10 14:11 | PC.NURSE ---
PO STEROIDS CHANGED TO IV
[2021-02-10] MEDS: methylPREDNISolone Sod Succ 125 MG/2 ML VIAL IVPUSH (14:17)
== END 2021-02-10 14:36 | disposition home or self-care (01) ==
PROVIDERS: Emergency Provider Internal Medicine; PCP Physician Assistant
DX: J45.41 Moderate persistent asthma with (acute) exacerbation (principal); Z20.822 Contact with and (suspected) exposure to COVID-19; Z79.899 Other long term (current) drug therapy
CPT/HCPCS: 36415; 71045; 87635; 96374; 99283; 99284; J2930

== ENCOUNTER → 2021-02-17 10:44 | Outpatient (BNVA) | payer OTHER, SELFPAY | PROVIDERS: PCP Physician Assistant; Visit Provider Nurse Practitioner Family ==

== ENCOUNTER 2021-03-01 21:27 | Emergency (ER) | payer OTHER, SELFPAY ==
[2021-03-01 21:45] VITALS: BP 132/88; BP 150/80; PULSE 110; PULSE 97; RESP 16; O2SAT 100; O2SAT 97; BMI 34.3
--- NOTE | 2021-03-01 22:18 | ECG_ITS ---
Test Reason : ANXIETY Blood Pressure : / mmHG Vent. Rate : 093 BPM Atrial Rate : 093 BPM P-R Int : 142 ms QRS Dur : 102 ms QT Int : 352 ms P-R-T Axes : 047 051 005 degrees QTc Int : 437 ms Normal sinus rhythm Normal ECG When compared with ECG of 06-AUG-2020 12:58, No significant change was found Referred By: Dunia Adorno Electronically Signed By:NICCI JONES
--- NOTE | 2021-03-01 22:27 | ED.ANXIETY ---
HPI - Anxiety General Chief Complaint: Anxiety Stated Complaint: anxiety Time Seen by Provider: 03/01/21 22:17 Source: patient Mode of arrival: EMS History of Present Illness HPI narrative: 35-year-old male without significant past medical history who is brought in by EMS for acute onset of anxiety secondary to multiple stress that home. Patient denies any associated or recent fever, chills, cough, sore throat, chest pain/palpitations, GI or symptoms. He states he has been treated for anxiety in the past but has been off of medications for over 6 months without any problems. Patient states his thumbs have now completely resolved and denies any suicidal/ homicidal ideation. Related Data Previous Rx's Medication Instructions Recorded fluticasone 232mcg-salmeterol 1 inh INHALATION BID 30 Days #1 ea 03/03/20 14mcg/actuation breath act,powder sensor ([employer] Digihaler) albuterol sulfate 0.63 mg/3 mL 0.63 mg INHALATION Q4-6H PRN #75 ml 03/29/20 solution for nebulization albuterol sulfate 2.5 mg/0.5 mL 5 mg INHALATION Q4H PRN #30 ea 08/06/20 solution for nebulization benzonatate 100 mg capsule 100 mg PO TID PRN #14 cap 08/06/20 (Mark Stewart) azithromycin 500 mg tablet See Rx Instructions .ROUTE 09/16/20 .COMPLEX #6 tab benzonatate 100 mg capsule 100 mg PO TID PRN #20 cap 09/16/20 (Tessalon Pat) prednisone 20 mg tablet 40 mg PO DAILY 4 Days #8 tab 09/16/20 albuterol sulfate 90 mcg/actuation 2 puff PO Q6H PRN 30 Days #8.5 g 10/28/20 aerosol inhaler (ProAir HFA) atorvastatin 20 mg tablet 20 mg PO DAILY #90 tab 11/14/20 montelukast 10 mg tablet 10 mg PO BEDTIME #90 tab 11/14/20 omeprazole 20 mg capsule,delayed 20 mg PO DAILY #90 cap 11/14/20 release prednisone 20 mg tablet 40 mg PO DAILY #10 tab 02/10/21 hydroxyzine HCl 25 mg tablet 25 mg PO TID PRN #10 tab 03/01/21 Allergies Allergy/AdvReac Type Severity Reaction Status Date / Time banana [BANANA] Allergy Unknown ITCHING Verified 03/01/21 21:49 Review of Systems Review of Systems: Pertinent positives and negatives as stated in HPI 10 point review of systems is otherwise negative. [facility] Past Medical History Source: nursing notes reviewed Medical History Anxiety Asthma GERD (gastroesophageal reflux disease) Surgical History History of facial surgery Family History Family History Father Alive and well Mother Alive and well Family/Other Cancer Social History Social History Advance Directives: No Advance Directives Information Provided: Yes Physical Exam Vital Signs: Vital Signs: Last Vital Signs Pulse 97 03/01/21 21:45 Resp 16 03/01/21 21:45 BP 132/88 03/01/21 21:45 Pulse Ox 97 03/01/21 21:45 Body Mass Index 34.3 VITAL SIGNS: Reviewed. GENERAL: Well developed, well nourished, in no acute distress. HEAD: Normocephalic/atraumatic EYES: PERRLA, EOMI LUNGS: Normal breath sounds. SpO2<97> CARDIOVASCULAR: Regular rate and rhythm without noted murmurs ABDOMEN: Soft, non-tender, non-distended with bowel sounds. NEUROLOGIC: Alert and oriented x 4. Course Course Course Narrative: 5-year-old male with history and clinical presentation consistent with anxiety reaction and no evidence to suggest pneumonia or asthma. Patient has had complete resolution of symptoms and is vital signs are otherwise stable. Will provide small dose of hydroxyzine and obtain an EKG. Review of all investigations otherwise negative for acute findings and patient was discharged in stable condition and states he is feeling much better. MDM - Anxiety ECG Data Attestation: I personally reviewed and interpreted this ECG as follows: Prior ECG tracings: available for review (08/06/2020 no acute changes on comparison) Interpretation: Normal sinus rhythm, HR-93, no STEMI, MA/QRS/QTC are within normal limits. Discharge Plan Discharge Clinical Impression: Acute anxiety Patient Disposition: Home, Self-Care Instructions: Anxiety (ED) Additional Instructions: Return to the ER for acute worsening of symptoms. Prescriptions: New hydroxyzine HCl 25 mg tablet 25 mg PO TID PRN (Reason: anxiety) Qty: 10 RF: 0 No Action AirDuo Digihaler 232-14 mcg/actuation aero powdr breath act w/sensor 1 inh inhalation BID 30 Days Qty: 1 RF: 2 albuterol sulfate [ProAir HFA] 90 mcg/actuation HFA aerosol inhaler 2 puff PO Q6H PRN (Reason: for wheezing) 30 Days Qty: 8.5 RF: 4 atorvastatin 20 mg tablet 20 mg PO DAILY Qty: 90 RF: 1 omeprazole 20 mg capsule,delayed release(DR/EC) 20 mg PO DAILY Qty: 90 RF: 1 montelukast 10 mg tablet 10 mg PO BEDTIME Qty: 90 RF: 1 prednisone 20 mg tablet 40 mg PO DAILY 4 Days Qty: 8 RF: 0 azithromycin 500 mg tablet See Rx Instructions .ROUTE .COMPLEX Qty: 6 RF: 0 benzonatate [Tessalon Perles] 100 mg capsule 100 mg PO TID PRN (Reason: cough) Qty: 20 RF: 0 prednisone 20 mg tablet 40 mg PO DAILY Qty: 10 RF: 0 albuterol sulfate 0.63 mg/3 mL solution for nebulization 0.63 mg inhalation Q4-6H PRN (Reason: shortness of breath or wheezing) Qty: 75 RF: 0 benzonatate [Tessalon Perles] 100 mg capsule 100 mg PO TID PRN (Reason: cough) Qty: 14 RF: 0 albuterol sulfate 2.5 mg/0.5 mL solution for nebulization 5 mg inhalation Q4H PRN (Reason: shortness of breath or wheezing) Qty: 30 RF: 0 Referrals: Tanner Chiang PA-C [Primary Care Provider] - 2 days
[2021-03-01] MEDS: hydrOXYzine HCL 25 MG TABLET PO (22:33)
--- NOTE | 2021-03-01 22:36 | PC.NURSE ---
Pt alert and oriented x4, calm and cooperative. Pt denies pain. Pt states he had a panic attack due to his friend telling him he wanted to commit suicide. Pt states he felt short of breath and very anxious. Pt states he feels better at this time, denies SOB at this time. Pt states anxious feeling has improved. States hx of anxiety.
--- NOTE | 2021-03-01 22:48 | PC.NURSE ---
crime scene evidence technician at bedside for EKG.
[2021-03-01 23:10] VITALS: BP 142/84; PULSE 78; RESP 18; TEMP 36.9; O2SAT 98
== END 2021-03-01 23:10 | disposition home or self-care (01) ==
PROVIDERS: Emergency Provider Student in an Organized Health Care Education/Training Program; PCP Physician Assistant
DX: F41.1 Generalized anxiety disorder (principal); F43.0 Acute stress reaction; Z79.899 Other long term (current) drug therapy
CPT/HCPCS: 93005; 99283; 99285

== ENCOUNTER 2021-04-03 08:41 | Outpatient (REF) | payer OTHER, SELFPAY ==
[2021-04-03 08:58] LABS: MANUAL DIFF FLAG NO
[2021-04-03 09:48] LABS: Basophils Percent Auto 0.7 % (0-2); Eosinophils Absolute Auto 0.4 X10*3/uL (0.0-0.4); Eosinophils Percent Auto 6.1 % (0-4); Hematocrit 44.1 % (42.0-52.0); Hemoglobin 14.8 g/dl (14.0-18.0); Imm Gran Abs Auto 0.04 X10*3/uL (0.00-0.03); Imm Gran Pct Auto 0.7 % (0.0-0.4); Lymphocytes Absolute Auto 2.5 X10*3/uL (1.2-4.9); Lymphocytes Percent Auto 43.4 % (20-40); Mean Corpuscular HGB Conc 33.6 g/dl (31.0-36.0); Mean Corpuscular Volume 92.5 fL (80.0-98.0); Mean Platelet Volume 12.7 fL (9.4-12.4); Monocytes Absolute Auto 0.8 X10*3/uL (0.1-1.2); Monocytes Percent Auto 14.2 % (2-11); Neutrophils Percent Auto 34.9 % (45-73); Platelet Count 193 X10*3/uL (160-400); Red Blood Count 4.77 X10*6/uL (4.60-5.80); Red Cell Distribution Width 12.1 % (11.0-16.0); White Blood Count 5.7 X10*3/uL (4.8-10.8)
[2021-04-03 10:07] LABS: Alanine Aminotransferase 33 U/L (0-40); Albumin Level 4.5 g/dL (3.5-5.0); Alkaline Phosphatase 56 U/L (39-117); Anion Gap 12 (12-20); Aspartate Amino Transferase 17 U/L (5-37); Bilirubin Total 0.5 mg/dL (0.0-1.0); Blood Urea Nitrogen 11 mg/dL (9-16); Calcium 8.8 mg/dL (8.4-10.2); Carbon Dioxide 23 mmol/L (22-29); Chloride 109 mmol/L (96-108); Cholesterol 198 mg/dL; Estimated Glomerular Filt Rate > 60; Glucose Fasting 113 mg/dL (60-99); HDL Cholesterol 31 mg/dL; LDL Cholesterol Calculated 127 mg/dl; Potassium 4.3 mmol/L (3.3-5.1); Sodium 140 mmol/L (135-145); Total Protein 7.1 g/dL (6.5-8.0); Triglycerides 203 mg/dL
[2021-04-03 10:22] LABS: Estimated Average Glucose 105 mg/dL; Hemoglobin A1c % 5.3 %
[2021-04-03 10:30] LABS: TSH reflex Free T4 3.33 uIU/mL (0.32-4.0)
[2021-04-06 21:32] LABS: Immunoglobulin E 1740 kU/L (<OR=114)
== END 2021-04-03 08:42 | disposition home or self-care (01) ==
LOC: HO.LAB 08:41
PROVIDERS: PCP Physician Assistant; Visit Provider Physician Assistant
DX: J45.40 Moderate persistent asthma, uncomplicated (principal); E78.2 Mixed hyperlipidemia; E66.09 Other obesity due to excess calories; Z68.39 Body mass index [BMI] 39.0-39.9, adult
CPT/HCPCS: 36415; 80053; 80061; 82785; 83036; 84443; 85025; 85027

== ENCOUNTER 2021-04-14 12:14 | Emergency (ER) | payer OTHER, SELFPAY ==
[2021-04-14 12:59] VITALS: BP 145/90; PULSE 110; RESP 18; TEMP 36.5; O2SAT 99; BMI 37.8
[2021-04-14 13:24] LABS: IDNOW Serial# 9DD0AD1C; Strep A Nucleic Acid Negative (Negative)
[2021-04-14 14:04] LABS: Influenza A PCR NEGATIVE (Negative); Influenza B PCR NEGATIVE (Negative); Resp Syncy Virus RNA Qual PCR NEGATIVE (Negative); SARS COV2 PCR INHOUSE NEGATIVE (Negative)
--- NOTE | 2021-04-14 14:09 | ED_ITS ---
HPI - URI/Sore Throat General Chief Complaint: Upper Respiratory Symptoms Stated Complaint: runny nose, sore throat Time Seen by Provider: 04/14/21 14:02 Source: patient History of Present Illness HPI Narrative: Patient states symptoms started last night. Scratchy throat, runny nose, cough. He has a history of asthma. States some wheezing but no significant shortness of breath. Some chills with no skyler fever. No nausea vomiting diarrhea or GI complaints Sick exposure in that he was exposed to a niece who had an upper respiratory infection. He does not know if she had COVID-19. He is not vaccinated. Related Data Previous Rx's Medication Instructions Recorded fluticasone 232mcg-salmeterol 1 inh INHALATION BID 30 Days #1 ea 03/03/20 14mcg/actuation breath act,powder sensor (AirDuo Digihaler) albuterol sulfate 2.5 mg/0.5 mL 5 mg INHALATION Q4H PRN #30 ea 08/06/20 solution for nebulization benzonatate 100 mg capsule 100 mg PO TID PRN #20 cap 09/16/20 (Tessalzena Stewart) atorvastatin 20 mg tablet 20 mg PO DAILY #90 tab 11/14/20 montelukast 10 mg tablet 10 mg PO BEDTIME #90 tab 11/14/20 omeprazole 20 mg capsule,delayed 20 mg PO DAILY #90 cap 11/14/20 release hydroxyzine HCl 25 mg tablet 25 mg PO TID PRN #10 tab 03/01/21 albuterol sulfate 90 mcg/actuation 2 puff PO Q6H PRN 30 Days #8.5 g 03/31/21 aerosol inhaler (ProAir HFA) albuterol sulfate 0.63 mg/3 mL 0.63 mg (3 mL) INHALATION Q4-6H 04/01/21 solution for nebulization PRN 15 Days #90 ml aluminum chloride 20 % topical 1 appl TOPICAL BEDTIME 20 Days 04/01/21 solution (Drysol) #37.5 ml hydrocortisone valerate 0.2 % 1 appl TOPICAL BID PRN 15 Days #60 04/01/21 topical cream g Allergies Allergy/AdvReac Type Severity Reaction Status Date / Time banana [BANANA] Allergy Unknown ITCHING Verified 04/01/21 15:24 Review of Systems Constitutional: Constitutional: Reports fatigue and Reports fever(s) ENT: Comments: Rhinorrhea Cardiovascular: Comments: No chest pain Respiratory: Comments: Cough without significant dyspnea or sputum Gastrointestinal: Comments: No GI symptoms Musculoskeletal: Comments: No leg swelling Integumentary/Breasts: Comments: No rash Neurologic: Comments: No weakness Endocrine: Endocrine: Reports fatigue [facility] Past Medical History Medical History Anxiety Asthma GERD (gastroesophageal reflux disease) Surgical History History of facial surgery Family History Family History Father Alive and well Mother Alive and well Family/Other Cancer Social History Social History e-Cigarette/Vaping Use: Never Used Advance Directives: No Advance Directives Information Provided: No Physical Exam Vital Signs: Vital Signs: Last Vital Signs Temp 97.7 F 04/14/21 12:59 Pulse 110 H 04/14/21 12:59 Resp 18 04/14/21 12:59 BP 145/90 H 04/14/21 12:59 Pulse Ox 99 04/14/21 12:59 Body Mass Index 37.8 Const: Other: Awake alert in no acute distress HENMT: Other: Clear rhinorrhea. Throat with mild erythema but no exudate. No tonsillar enlargement. No lymphadenopathy Neck: Other: Full range of motion Resp: Other: Clear and equal bilaterally without wheezes rales or rhonchi Cardio: Other: Regular rate and rhythm without murmurs rubs or gallops GI: Other: Soft nontender Skin: Other: No rash Course Course Course Narrative: Upper respiratory tract infection Rule out strep Rule out COVID-19 Rule out influenza Strep test negative. PCR for COVID-19, influenza, and RSV are negative as well. Upper respiratory tract infection, viral syndrome MDM - URI/Sore Throat Lab Data Labs: Lab Results 04/14/21 04/14/21 Range/Units 13:02 13:03 Influenza Type A (PCR) NEGATIVE (Negative) Influenza Type B (PCR) NEGATIVE (Negative) RSV RNA Qual (PCR) NEGATIVE (Negative) SARS-CoV-2 RNA (RT-PCR) NEGATIVE (Negative) S. pyogenes GrpA CLAY Negative (Negative) Discharge Plan Discharge Clinical Impression: Upper respiratory infection Patient Disposition: Home, Self-Care Instructions: Upper Respiratory Infection (ED) Additional Instructions: Your workup in the emergency department showed no evidence of strep throat, COVID-19, influenza, or respiratory syncytial virus. Use albuterol as needed, as directed, if you feel like your wheezing Prescriptions: No Action AirDuo Digihaler 232-14 mcg/actuation aero powdr breath act w/sensor 1 inh inhalation BID 30 Days Qty: 1 RF: 2 atorvastatin 20 mg tablet 20 mg PO DAILY Qty: 90 RF: 1 omeprazole 20 mg capsule,delayed release(DR/EC) 20 mg PO DAILY Qty: 90 RF: 1 montelukast 10 mg tablet 10 mg PO BEDTIME Qty: 90 RF: 1 albuterol sulfate [ProAir HFA] 90 mcg/actuation HFA aerosol inhaler 2 puff PO Q6H PRN (Reason: for wheezing) 30 Days Qty: 8.5 RF: 4 benzonatate [Tessalon Perles] 100 mg capsule 100 mg PO TID PRN (Reason: cough) Qty: 20 RF: 0 albuterol sulfate 2.5 mg/0.5 mL solution for nebulization 5 mg inhalation Q4H PRN (Reason: shortness of breath or wheezing) Qty: 30 RF: 0 hydroxyzine HCl 25 mg tablet 25 mg PO TID PRN (Reason: anxiety) Qty: 10 RF: 0 hydrocortisone valerate 0.2 % cream 1 appl topical BID PRN (Reason: skin irritation) 15 Days Qty: 60 RF: 0 Drysol 20 % solution 1 appl topical BEDTIME 20 Days Qty: 37.5 RF: 0 albuterol sulfate 0.63 mg/3 mL solution for nebulization 0.63 mg inhalation Q4-6H PRN (Reason: shortness of breath or wheezing) 15 Days Qty: 90 RF: 3
== END 2021-04-14 14:24 | disposition home or self-care (01) ==
PROVIDERS: Emergency Provider Emergency Medicine; PCP Physician Assistant
DX: J06.9 Acute upper respiratory infection, unspecified (principal); R05.9 Cough, unspecified; Z20.822 Contact with and (suspected) exposure to COVID-19; Z79.899 Other long term (current) drug therapy
CPT/HCPCS: 0241U; 36415; 87651; 99283

== ENCOUNTER 2021-04-15 02:09 | Emergency (ER) | payer OTHER, SELFPAY ==
--- NOTE | ~2021-04-15 | XR_ITS ---
EXAMINATION: XR CHEST CLINICAL INFORMATION: Shortness of breath COMPARISON: 02/10/2021 TECHNIQUE: 2 views of the chest were obtained. FINDINGS: The lungs are clear with no focal consolidation. No evidence of pneumothorax, pulmonary edema, or pleural effusions. The cardiomediastinal silhouette is unremarkable. No acute osseous findings. XR/XR chest 2V IMPRESSION: No acute cardiopulmonary findings.
[2021-04-15 02:20] VITALS: BP 143/94; PULSE 120; RESP 18; TEMP 37.6; O2SAT 98; BMI 32.3
[2021-04-15 02:24] VITALS: BP 143/94; PULSE 120; RESP 18; TEMP 37.6; O2SAT 97
--- NOTE | 2021-04-15 02:51 | ED_ITS ---
HPI - General Adult General Chief complaint: General Medical Stated complaint: FLU LIKE SYMPTOMS Time Seen by Provider: 04/15/21 02:32 Source: patient Mode of arrival: ambulatory History of Present Illness HPI narrative: 35-year-old male with history of asthma presents with persistent cough, that he is having difficulty controlling at home. He was already seen earlier in the day and COVID testing (respiratory panel) was negative for acute findings. Otherwise, he denies any fever, chills, GI or symptoms. Related Data Previous Rx's Medication Instructions Recorded fluticasone 232mcg-salmeterol 1 inh INHALATION BID 30 Days #1 ea 03/03/20 14mcg/actuation breath act,powder sensor (AirArtificial Solutionso Digihaler) albuterol sulfate 2.5 mg/0.5 mL 5 mg INHALATION Q4H PRN #30 ea 08/06/20 solution for nebulization benzonatate 100 mg capsule 100 mg PO TID PRN #20 cap 09/16/20 (Mark Stewart) atorvastatin 20 mg tablet 20 mg PO DAILY #90 tab 11/14/20 montelukast 10 mg tablet 10 mg PO BEDTIME #90 tab 11/14/20 omeprazole 20 mg capsule,delayed 20 mg PO DAILY #90 cap 11/14/20 release hydroxyzine HCl 25 mg tablet 25 mg PO TID PRN #10 tab 03/01/21 albuterol sulfate 90 mcg/actuation 2 puff PO Q6H PRN 30 Days #8.5 g 03/31/21 aerosol inhaler (ProAir HFA) albuterol sulfate 0.63 mg/3 mL 0.63 mg (3 mL) INHALATION Q4-6H 04/01/21 solution for nebulization PRN 15 Days #90 ml aluminum chloride 20 % topical 1 appl TOPICAL BEDTIME 20 Days 04/01/21 solution (Drysol) #37.5 ml hydrocortisone valerate 0.2 % 1 appl TOPICAL BID PRN 15 Days #60 04/01/21 topical cream g benzonatate 200 mg capsule 200 mg PO TID PRN #14 cap 04/15/21 prednisone 20 mg tablet 40 mg PO DAILY 4 Days #8 tab 04/15/21 Allergies Allergy/AdvReac Type Severity Reaction Status Date / Time banana [BANANA] Allergy Unknown ITCHING Verified 11/17/21 02:28 Review of Systems Review of Systems: Pertinent positives and negatives as stated in HPI 10 point review of systems is otherwise negative. [facility] Past Medical History Source: nursing notes reviewed Medical History Anxiety Asthma GERD (gastroesophageal reflux disease) Surgical History History of facial surgery Family History Family History Father Alive and well Mother Alive and well Family/Other Cancer Social History Social History e-Cigarette/Vaping Use: Never Used Advance Directives: No Advance Directives Information Provided: No Physical Exam Vital Signs: Vital Signs: Last Vital Signs Temp 99.6 F 04/15/21 02:24 Pulse 120 H 04/15/21 02:24 Resp 18 04/15/21 02:24 BP 143/94 H 04/15/21 02:24 Pulse Ox 97 04/15/21 02:24 Body Mass Index 32.3 VITAL SIGNS: Reviewed. GENERAL: Well developed, well nourished, in no acute distress. HEAD: Normocephalic/atraumatic EYES: PERRLA, EOMI EARS: Ext canals without abnormality, TMs non-bulging and non-erythematous NOSE: Nasal congestion OROPHARYNX: no oral lesions noted, posterior pharynx clear and non-erythematous without noted tonsillar enlargement/erythema/exudates NECK: Supple, no adenopathy LUNGS: Normal breath sounds, minimal trace wheeze on the right otherwise no rhonchi/rales. SpO2<97> CARDIOVASCULAR: Regular rate and rhythm without noted murmurs ABDOMEN: Soft, non-tender, non-distended with bowel sounds. NEUROLOGIC: Alert and oriented x 4. Course Course Course Narrative: 35-year-old male with history and clinical presentation consistent with persistent cough likely secondary to syndrome and no evidence to suggest acute asthma exacerbation at this time. Patient was provided with cough suppressant, prednisone, and will obtain chest x-ray. Review of all investigations otherwise negative for acute findings and patient was discharged home in stable condition. Discharge Plan Discharge Clinical Impression: URI (upper respiratory infection), Asthma Patient Disposition: Home, Self-Care Instructions: Asthma (ED), Upper Respiratory Infection (ED) Additional Instructions: 1. Recommend using a cool mist humidifier at the bedside for additional symptom relief. 2. A short course of steroids as well as prescribed cough medication has been sent to your pharmacy. 3. Follow-up with your primary care provider in the next 1-2 days for re- evaluation. Continue to use your albuterol inhaler every 4-6 hours, 2 puffs Return to the ER for worsening symptoms. Prescriptions: New prednisone 20 mg tablet 40 mg PO DAILY 4 Days Qty: 8 RF: 0 benzonatate 200 mg capsule 200 mg PO TID PRN (Reason: cough) Qty: 14 RF: 0 No Action AirDuo Digihaler 232-14 mcg/actuation aero powdr breath act w/sensor 1 inh inhalation BID 30 Days Qty: 1 RF: 2 atorvastatin 20 mg tablet 20 mg PO DAILY Qty: 90 RF: 1 omeprazole 20 mg capsule,delayed release(DR/EC) 20 mg PO DAILY Qty: 90 RF: 1 montelukast 10 mg tablet 10 mg PO BEDTIME Qty: 90 RF: 1 albuterol sulfate [ProAir HFA] 90 mcg/actuation HFA aerosol inhaler 2 puff PO Q6H PRN (Reason: for wheezing) 30 Days Qty: 8.5 RF: 4 benzonatate [Tessalon Perles] 100 mg capsule 100 mg PO TID PRN (Reason: cough) Qty: 20 RF: 0 albuterol sulfate 2.5 mg/0.5 mL solution for nebulization 5 mg inhalation Q4H PRN (Reason: shortness of breath or wheezing) Qty: 30 RF: 0 hydroxyzine HCl 25 mg tablet 25 mg PO TID PRN (Reason: anxiety) Qty: 10 RF: 0 hydrocortisone valerate 0.2 % cream 1 appl topical BID PRN (Reason: skin irritation) 15 Days Qty: 60 RF: 0 Drysol 20 % solution 1 appl topical BEDTIME 20 Days Qty: 37.5 RF: 0 albuterol sulfate 0.63 mg/3 mL solution for nebulization 0.63 mg inhalation Q4-6H PRN (Reason: shortness of breath or wheezing) 15 Days Qty: 90 RF: 3 Referrals: Tanner Chiang PA-C [Primary Care Provider] - 2 days
[2021-04-15] MEDS: Benzonatate 100 MG CAPSULE 200 MG PO (03:07)
[2021-04-15] MEDS: predniSONE 20 MG TABLET 40 MG PO (03:08)
[2021-04-15 03:24] VITALS: BP 142/88; PULSE 125; RESP 18; O2SAT 96
== END 2021-04-15 03:25 | disposition home or self-care (01) ==
PROVIDERS: Emergency Provider Student in an Organized Health Care Education/Training Program; PCP Physician Assistant
DX: J06.9 Acute upper respiratory infection, unspecified (principal); J45.909 Unspecified asthma, uncomplicated
CPT/HCPCS: 71046; 99283; 99284

== ENCOUNTER → 2021-05-19 10:38 | Outpatient (BNVA) | payer OTHER, SELFPAY | PROVIDERS: PCP Physician Assistant; Referring Provider Physician Assistant; Visit Provider Nurse Practitioner Family | DX: G47.33 Obstructive sleep apnea (adult) (pediatric) (principal) | CPT/HCPCS: 99212 ==

== ENCOUNTER → 2021-08-13 09:55 | Outpatient (BNVA) | payer OTHER, SELFPAY | PROVIDERS: PCP Physician Assistant; Referring Provider Physician Assistant; Visit Provider Surgery | DX: L29.0 Pruritus ani (principal) | CPT/HCPCS: 46600; 99202 ==

== ENCOUNTER 2021-10-22 19:29 | Emergency (ER) | payer OTHER, SELFPAY ==
--- NOTE | ~2021-10-22 | XR_ITS ---
EXAMINATION: XR CHEST CLINICAL INFORMATION: Chest pain/SOB. COMPARISON: None TECHNIQUE: Frontal view of the chest was obtained. FINDINGS: No significant abnormality is noted involving the heart, lungs, mediastinum, bony thorax or soft tissues. XR/XR chest 1V IMPRESSION: Unremarkable chest examination.
[2021-10-22 20:39] VITALS: BP 107/79; PULSE 90; RESP 22; TEMP 37.1; O2SAT 99; BMI 34.3
--- NOTE | 2021-10-22 20:42 | ECG_ITS ---
Test Reason : SOB Blood Pressure : / mmHG Vent. Rate : 090 BPM Atrial Rate : 090 BPM P-R Int : 148 ms QRS Dur : 100 ms QT Int : 344 ms P-R-T Axes : 048 042 -03 degrees QTc Int : 420 ms Normal sinus rhythm Normal ECG When compared with ECG of 01-MAR-2021 22:51, No significant change was found Referred By: Generic ED Physician Electronically Signed By:Manfred Cooper
[2021-10-22 21:08] LABS: Eosinophils Absolute Auto 0.1 X10*3/uL (0.0-0.4); Eosinophils Percent Auto 0.6 % (0-4); Imm Gran Abs Auto 0.02 X10*3/uL (0.00-0.03); Imm Gran Pct Auto 0.2 % (0.0-0.4); Mean Corpuscular Volume 92.3 fL (80.0-98.0); Red Cell Distribution Width 12.1 % (11.0-16.0); SCAN SMEAR FLAG 1
[2021-10-22 21:09] LABS: Basophils Percent Auto 0.2 % (0-2); Hemoglobin 13.8 g/dl (14.0-18.0); Lymphocytes Absolute Auto 2.8 X10*3/uL (1.2-4.9); Lymphocytes Percent Auto 29.7 % (20-40); Mean Corpuscular HGB Conc 32.9 g/dl (31.0-36.0); Mean Corpuscular Hemoglobin 30.3 pg (27.0-33.0); Mean Platelet Volume 13.5 fL (9.4-12.4); Monocytes Absolute Auto 0.7 X10*3/uL (0.1-1.2); Neutrophils Absolute Auto 5.9 x10*3/uL (2.0-8.3); Neutrophils Percent Auto 62.3 % (45-73); Platelet Count 176 X10*3/uL (160-400); Red Blood Count 4.55 X10*6/uL (4.60-5.80); White Blood Count 9.5 X10*3/uL (4.8-10.8)
[2021-10-22 21:12] LABS: PLT ABN DIST 1
[2021-10-22 21:29] LABS: Anion Gap 11 (12-20); Blood Urea Nitrogen 11 mg/dL (9-16); Calcium 9.7 mg/dL (8.4-10.2); Carbon Dioxide 24 mmol/L (22-29); Chloride 109 mmol/L (96-108); Creatinine Clr Calc Pharmacy 99.7; Estimated Glomerular Filt Rate > 60; Glucose Random 121 mg/dL (60-115); MANUAL DIFF FLAG NO; Potassium 3.9 mmol/L (3.3-5.1); Sodium 140 mmol/L (135-145)
[2021-10-22 21:34] LABS: B Type Natriuretic Peptide < 10 pg/mL (<100); Troponin-I High Sensitivity < 3.5 ng/L (<3.5-35.0)
[2021-10-23 00:31] LABS: COVID-19 Test Negative (Negative); IDNOW Serial# 55D5AD1C; Influenza A Negative (Negative); Influenza B2 Negative (Negative)
--- NOTE | 2021-10-23 03:24 | ED.ASTHMA ---
HPI - Asthma General Chief Complaint: Asthma Stated Complaint: asthma Time Seen by Provider: 10/23/21 03:14 Source: patient Mode of arrival: ambulatory History of Present Illness HPI Narrative: 36-year-old male with history asthma reports epigastric discomfort he states is related to his underlying acid reflux for which he does not have medication. He denies any fever, chills and although on review of the triage note it states that patient reports shortness of breath and substernal chest pain patient denies any shortness of breath at this time and describes the pain as burning and ongoing for 3 weeks without hematemesis melena. Patient also denies any right upper quadrant pain or diarrhea. Related Data Previous Rx's Medication Instructions Recorded albuterol sulfate 2.5 mg/0.5 mL 5 mg INHALATION Q4H PRN #30 ea 08/06/20 solution for nebulization hydroxyzine HCl 25 mg tablet 25 mg PO TID PRN #10 tab 03/01/21 albuterol sulfate 0.63 mg/3 mL 0.63 mg (3 mL) INHALATION Q4-6H 04/01/21 solution for nebulization PRN 15 Days #90 ml atorvastatin 20 mg tablet 20 mg PO DAILY #90 tab 05/13/21 aluminum chloride 20 % topical 1 appl TOPICAL BEDTIME 20 Days 07/06/21 solution (Drysol) #37.5 ml hydrocortisone valerate 0.2 % 1 appl TOPICAL BID PRN 15 Days #60 07/06/21 topical cream g albuterol sulfate 90 mcg/actuation 2 puff PO Q6H PRN 30 Days #8.5 g 07/21/21 aerosol inhaler (ProAir HFA) montelukast 10 mg tablet 10 mg PO BEDTIME #90 tab 07/21/21 phenylephrine 0.25 %-mineral oil 1 appl [place] BID 10 Days #57 g 07/21/21 14 %-petrolatm 74.9 % rectal ointment (Preparation H) prednisone 20 mg tablet 40 mg PO DAILY 4 Days #8 tab 07/21/21 menthol 0.44 %-zinc oxide 20.6 % 1 appl TOPICAL QID PRN #113 g 08/13/21 topical ointment (Calmoseptine) benzonatate 200 mg capsule 200 mg PO TID PRN #14 cap 10/08/21 omeprazole 20 mg capsule,delayed 20 mg PO DAILY #90 cap 10/09/21 release mometasone-formoterol HFA 200 2 puff INHALATION BID 30 Days #8.8 10/19/21 mcg-5 mcg/actuation aerosol g inhaler (Dulera) omeprazole 40 mg capsule,delayed 40 mg PO DAILY #30 cap 10/23/21 release Allergies Allergy/AdvReac Type Severity Reaction Status Date / Time banana [BANANA] Allergy Unknown ITCHING Verified 10/22/21 20:39 Review of Systems Review of Systems: Pertinent positives and negatives as stated in HPI 10 point review systems is otherwise negative. 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 Surgical History History of circumcision History of facial surgery Family History Family History Father Alive and well Mother Alive and well CVA (cerebral vascular accident) Family/Other Cancer Social History Social History Housing: House Alcohol intake: current Alcohol intake frequency: holidays/special occasions only Patient Tobacco Use Status: Former Tobacco user Quit Date: 2017 e-Cigarette/Vaping Use: Never Used Second Hand Smoke Exposure: No Advance Directives: No service: No Current occupational status: disabled Cognitive needs: No Hearing needs: No Vision needs: Yes (glasses) Physical Exam Vital Signs: Vital Signs: Last Vital Signs Temp 98.7 F 10/22/21 20:39 Pulse 90 10/22/21 20:39 Resp 22 H 10/22/21 20:39 BP 107/79 10/22/21 20:39 Pulse Ox 99 10/22/21 20:39 BMI result Body Mass Index 34.3 VITAL SIGNS: Reviewed. GENERAL: Well developed, well nourished, in no acute distress. HEAD: Normocephalic/atraumatic EYES: PERRLA, EOMI EARS: Ext canals without abnormality OROPHARYNX: no oral lesions noted, posterior pharynx clear LUNGS: Normal breath sounds. No adventitious sounds or accessory muscle use. SpO2<99> CARDIOVASCULAR: Regular rate and rhythm without noted murmurs ABDOMEN: Soft, mild epigastric pain without rebound, no right upper quadrant pain, non-distended with bowel sounds. MUSCULOSKELETAL: No tenderness, deformities, or effusions noted on gross inspection. EXTREMITIES: No cyanosis, clubbing or edema. SKIN: Inspection of the skin reveals no rashes NEUROLOGIC: Alert and oriented x 4. Strength and sensation to light touch were grossly intact x 4. Course Course Course Narrative: 36-year-old male with history and clinical presentation after review of all investigations gastritis/GERD. No evidence to suggest pneumonia, cardiopulmonary etiology, cholecystitis or pancreatitis. Patient received a GI cocktail as well as Carafate and will be discharged home in stable condition with a prescription for GERD. MDM - Asthma Lab Data Result diagrams: 10/22/21 20:59 10/22/21 20:59 Labs: Lab Results 10/22/21 10/22/21 10/22/21 Range/Units 20:59 20:59 20:59 WBC 9.5 (4.8-10.8) X10*3/uL RBC 4.55 L (4.60-5.80) X10*6/uL Hgb 13.8 L (14.0-18.0) g/dl Hct 42.0 (42.0-52.0) % MCV 92.3 (80.0-98.0) fL MCH 30.3 (27.0-33.0) pg MCHC 32.9 (31.0-36.0) g/dl RDW 12.1 (11.0-16.0) % Plt Count 176 (160-400) X10*3/uL MPV 13.5 H (9.4-12.4) fL Immature Gran % (Auto) 0.2 (0.0-0.4) % Neut % (Auto) 62.3 (45-73) % Lymph % (Auto) 29.7 (20-40) % Wetzel % (Auto) 7.0 (2-11) % Eos % (Auto) 0.6 (0-4) % Baso % (Auto) 0.2 (0-2) % Lymph # (Auto) 2.8 (1.2-4.9) X10*3/uL Wetzel # (Auto) 0.7 (0.1-1.2) X10*3/uL Eos # (Auto) 0.1 (0.0-0.4) X10*3/uL Baso # (Auto) 0.0 (0.0-0.2) X10*3/uL Abs Immat Gran (auto) 0.02 (0.00-0.03) X10*3/uL Absolute Neuts (auto) 5.9 (2.0-8.3) x10*3/uL Absolute Nucleated RBC 0.000 (0.0-0.012) X10*3/uL Nucleated RBC % (auto) 0.0 (0.0-0.2) /100WBC Sodium 140 (135-145) mmol/L Potassium 3.9 (3.3-5.1) mmol/L Chloride 109 H (96-108) mmol/L Carbon Dioxide 24 (22-29) mmol/L Anion Gap 11 L (12-20) BUN 11 (9-16) mg/dL Creatinine 1.03 (0.5-1.4) mg/dL Estim Creat Clear Calc 99.7 Estimated GFR > 60 Random Glucose 121 H (60-115) mg/dL Calcium 9.7 D (8.4-10.2) mg/dL Troponin I High Sens < 3.5 (<3.5-35.0) ng/L B-Natriuretic Peptide < 10 (<100) pg/mL COVID-19 ([facility]) (Negative) COVID-19 Clin Com Influenza Type A ([facility]) (Negative) Influenza Type B ([facility]) (Negative) Influenza A & B Note 10/23/21 10/23/21 Range/Units 00:08 00:08 WBC (4.8-10.8) X10*3/uL RBC (4.60-5.80) X10*6/uL Hgb (14.0-18.0) g/dl Hct (42.0-52.0) % MCV (80.0-98.0) fL MCH (27.0-33.0) pg MCHC (31.0-36.0) g/dl RDW (11.0-16.0) % Plt Count (160-400) X10*3/uL MPV (9.4-12.4) fL Immature Gran % (Auto) (0.0-0.4) % Neut % (Auto) (45-73) % Lymph % (Auto) (20-40) % Wetzel % (Auto) (2-11) % Eos % (Auto) (0-4) % Baso % (Auto) (0-2) % Lymph # (Auto) (1.2-4.9) X10*3/uL Wetzel # (Auto) (0.1-1.2) X10*3/uL Eos # (Auto) (0.0-0.4) X10*3/uL Baso # (Auto) (0.0-0.2) X10*3/uL Abs Immat Gran (auto) (0.00-0.03) X10*3/uL Absolute Neuts (auto) (2.0-8.3) x10*3/uL Absolute Nucleated RBC (0.0-0.012) X10*3/uL Nucleated RBC % (auto) (0.0-0.2) /100WBC Sodium (135-145) mmol/L Potassium (3.3-5.1) mmol/L Chloride (96-108) mmol/L Carbon Dioxide (22-29) mmol/L Anion Gap (12-20) BUN (9-16) mg/dL Creatinine (0.5-1.4) mg/dL Estim Creat Clear Calc Estimated GFR Random Glucose (60-115) mg/dL Calcium (8.4-10.2) mg/dL Troponin I High Sens (<3.5-35.0) ng/L B-Natriuretic Peptide (<100) pg/mL COVID-19 ([facility]) Negative (Negative) COVID-19 Clin Com See Note Influenza Type A ([facility]) Negative (Negative) Influenza Type B ([facility]) Negative (Negative) Influenza A & B Note See Note ECG Data Attestation: I personally reviewed and interpreted this ECG as follows: Prior ECG tracings: available for review Interpretation: Normal sinus rhythm, HR-90, no STEMI, [place]/QRS/QTC are within normal limits. Discharge Plan Discharge Clinical Impression: GERD (gastroesophageal reflux disease), Gastritis Patient Disposition: Home, Self-Care Instructions: Gastritis (ED), Diet for Stomach Ulcers and Gastritis (ED), Gastroesophageal Reflux Disease (ED) Additional Instructions: 1. Resume all home medications as prescribed. 2. You have been prescribed a medication for acid reflux in you should take this as prescribed as well as following up with your primary care provider in the next 1-2 days. 3. Please review the recommendations for reducing acid production. Return to the ER for worsening symptoms. Prescriptions: New omeprazole 40 mg capsule,delayed release(DR/EC) 40 mg PO DAILY Qty: 30 0RF No Action atorvastatin 20 mg tablet 20 mg PO DAILY Qty: 90 1RF Drysol 20 % solution 1 appl topical BEDTIME 20 Days Qty: 37.5 0RF hydrocortisone valerate 0.2 % cream 1 appl topical BID PRN (Reason: skin irritation) 15 Days Qty: 60 0RF omeprazole 20 mg capsule,delayed release(DR/EC) 20 mg PO DAILY Qty: 90 1RF Dulera 200-5 mcg/actuation HFA aerosol inhaler 2 puff inhalation BID 30 Days Qty: 8.8 3RF albuterol sulfate 2.5 mg/0.5 mL solution for nebulization 5 mg inhalation Q4H PRN (Reason: shortness of breath or wheezing) Qty: 30 0RF hydroxyzine HCl 25 mg tablet 25 mg PO TID PRN (Reason: anxiety) Qty: 10 0RF albuterol sulfate 0.63 mg/3 mL solution for nebulization 0.63 mg inhalation Q4-6H PRN (Reason: shortness of breath or wheezing) 15 Days Qty: 90 3RF montelukast 10 mg tablet 10 mg PO BEDTIME Qty: 90 1RF prednisone 20 mg tablet 40 mg PO DAILY 4 Days Qty: 8 0RF albuterol sulfate [ProAir HFA] 90 mcg/actuation HFA aerosol inhaler 2 puff PO Q6H PRN (Reason: for wheezing) 30 Days Qty: 8.5 4RF Preparation H 0.25-14-74.9 % ointment 1 appl [place] BID 10 Days Qty: 57 0RF benzonatate 200 mg capsule 200 mg PO TID PRN (Reason: cough) Qty: 14 0RF menthol-zinc oxide [Calmoseptine] 0.44-20.6 % ointment 1 appl topical QID PRN (Reason: skin irritation) Qty: 113 0RF Referrals: Tanner Chiang PA-C [Primary Care Provider] -
[2021-10-23] MEDS: Sucralfate Oral Suspension 1 GM/10 ML ORAL.SUSP PO (03:57)
[2021-10-23] MEDS: Magnesium Hydrox/Alum Hydrox 30 ML ORAL.SUSP PO (03:57)
[2021-10-23] MEDS: Lidocaine HCl Viscous 2 % 15 ML SOLUTION 10 ML MUCOUS MEM (03:57)
== END 2021-10-23 04:37 | disposition home or self-care (01) ==
PROVIDERS: Emergency Provider Student in an Organized Health Care Education/Training Program; PCP Physician Assistant
DX: K29.70 Gastritis, unspecified, without bleeding (principal); K21.9 Gastro-esophageal reflux disease without esophagitis; R06.02 Shortness of breath; Z20.822 Contact with and (suspected) exposure to COVID-19; J45.909 Unspecified asthma, uncomplicated; E78.5 Hyperlipidemia, unspecified; Z79.02 Long term (current) use of antithrombotics/antiplatelets
CPT/HCPCS: 36415; 71045; 80048; 83880; 84484; 85025; 87502; 87635; 93005; 99282; 99283

== ENCOUNTER 2021-10-23 12:54 | Emergency (ER) | payer OTHER, SELFPAY ==
--- NOTE | ~2021-10-23 | CT_ITS ---
EXAMINATION: CT ABDOMEN AND PELVIS WITHOUT CONTRAST CLINICAL INFORMATION: Abdominal pain COMPARISON: None TECHNIQUE: Multidetector volumetric imaging was performed from the superior aspect of the liver through the pubic symphysis. Sagittal and coronal reformatted images were obtained on the technologist's workstation. This CT examination was performed using dose optimization techniques as appropriate, variously including the following: *Automated exposure control *Adjustment of mA and/or kV according to patient size (this includes techniques or standardized protocols for targeted exams where dose is matched to indication/reason for exam; i.e. extremities or head) *Use of iterative reconstruction technique DLP: 727 mGy-cm FINDINGS: LUNG BASES: The visualized lung bases are unremarkable. LIVER, GALLBLADDER, AND BILIARY TREE: Mild low-attenuation of liver parenchyma due to fatty change. No focal liver lesion or intrahepatic bile duct dilatation The gallbladder is unremarkable with no evidence of radiopaque gallstones, gallbladder wall thickening, or obvious pericholecystic inflammatory changes. PANCREAS: Unremarkable. SPLEEN: Unremarkable. ADRENAL GLANDS: Unremarkable. KIDNEYS AND URETERS: The kidneys are normal in size, shape, and attenuation. No hydronephrosis, hydroureter, or calculi seen. No perinephric stranding. BLADDER: Unremarkable. GASTROINTESTINAL TRACT: The small and large bowel are unremarkable. The appendix is unremarkable. ABDOMINAL WALL: No significant hernia is appreciated. LYMPH NODES: Normal. VASCULAR: Unremarkable. PELVIC VISCERA: Unremarkable. OSSEOUS STRUCTURES: Unremarkable. CT/CT abdomen pelvis wo con IMPRESSION: No acute abnormality CT scan abdomen pelvis. Fleischner guidelines were followed.
[2021-10-23 14:13] VITALS: BP 139/93; BP 146/91; PULSE 106; PULSE 109; RESP 18; TEMP 35.8; O2SAT 98; O2SAT 99; BMI 34.3
[2021-10-23 19:32] LABS: MANUAL DIFF FLAG NO
[2021-10-23 19:35] LABS: Eosinophils Percent Auto 0.1 % (0-4); Red Cell Distribution Width 12.2 % (11.0-16.0); SCAN SMEAR FLAG 1
[2021-10-23 19:37] LABS: Basophils Percent Auto 0.1 % (0-2); Hematocrit 44.1 % (42.0-52.0); Hemoglobin 14.7 g/dl (14.0-18.0); Imm Gran Abs Auto 0.01 X10*3/uL (0.00-0.03); Imm Gran Pct Auto 0.1 % (0.0-0.4); Lymphocytes Absolute Auto 2.1 X10*3/uL (1.2-4.9); Lymphocytes Percent Auto 26.6 % (20-40); Mean Corpuscular HGB Conc 33.3 g/dl (31.0-36.0); Monocytes Absolute Auto 0.7 X10*3/uL (0.1-1.2); Monocytes Percent Auto 8.8 % (2-11); Neutrophils Absolute Auto 5.2 x10*3/uL (2.0-8.3); Neutrophils Percent Auto 64.3 % (45-73); Platelet Count 189 X10*3/uL (160-400); Red Blood Count 4.74 X10*6/uL (4.60-5.80)
[2021-10-23 19:39] LABS: PLT ABN DIST 1
[2021-10-23 19:54] LABS: Alanine Aminotransferase 38 U/L (0-40); Albumin Level 4.9 g/dL (3.5-5.0); Alkaline Phosphatase 59 U/L (39-117); Anion Gap 14 (12-20); Aspartate Amino Transferase 19 U/L (5-37); Bilirubin Total 0.6 mg/dL (0.0-1.0); Blood Urea Nitrogen 8 mg/dL (9-16); Calcium 9.8 mg/dL (8.4-10.2); Carbon Dioxide 23 mmol/L (22-29); Chloride 107 mmol/L (96-108); Creatinine Clr Calc Pharmacy 108.1; Estimated Glomerular Filt Rate > 60; Glucose Random 113 mg/dL (60-115); Potassium 4.4 mmol/L (3.3-5.1); Sodium 140 mmol/L (135-145); Total Protein 7.7 g/dL (6.5-8.0)
[2021-10-23 20:10] LABS: Amphetamine Screen Urine Not Detected (Not Detect); Barbiturates, Urine Not Detected (Not Detect); Benzodiazepines Screen Urine Not Detected (Not Detect); Cannabinoid Screen Urine POSITIVE (Not Detect); Cocaine Screen Urine Not Detected (Not Detect); Fentanyl, urine Not Detected (Not Detect); Opiate Screen Urine Not Detected (Not Detect); Phencyclidine Screen Urine Not Detected (Not Detect)
--- NOTE | 2021-10-23 22:42 | ED_ITS ---
HPI - Abdominal Pain General Chief Complaint: Abdominal Pain Stated Complaint: UPPER ABD PAIN X'S 2 DAYS PER EMS Time Seen by Provider: 10/23/21 22:41 Source: patient and EMS Mode of arrival: EMS Limitations: no limitations History of Present Illness HPI narrative: 36-year-old male came in for evaluation of abdominal pain. Patient stated been having abdominal pain for 3 weeks, pain is localized to the upper abdomen mostly in the epigastric area, patient is not radiating, described as dull aching pain, pain is constant but waxes and wean, patient not related to food, declined any association of nausea or vomiting or fever or chills, normal bowel movements with passing flatus. Patient with history of occasional alcohol abuse but admit to smoking marijuana on a daily basis. Patient declined any intra-abdominal surgery. Patient was seen yesterday in the emergency department for similar pain was diagnosed with GERD and prescribed omeprazole. Related Data Previous Rx's Medication Instructions Recorded albuterol sulfate 2.5 mg/0.5 mL 5 mg INHALATION Q4H PRN #30 ea 08/06/20 solution for nebulization hydroxyzine HCl 25 mg tablet 25 mg PO TID PRN #10 tab 03/01/21 albuterol sulfate 0.63 mg/3 mL 0.63 mg (3 mL) INHALATION Q4-6H 04/01/21 solution for nebulization PRN 15 Days #90 ml atorvastatin 20 mg tablet 20 mg PO DAILY #90 tab 05/13/21 aluminum chloride 20 % topical 1 appl TOPICAL BEDTIME 20 Days 07/06/21 solution (Drysol) #37.5 ml hydrocortisone valerate 0.2 % 1 appl TOPICAL BID PRN 15 Days #60 07/06/21 topical cream g albuterol sulfate 90 mcg/actuation 2 puff PO Q6H PRN 30 Days #8.5 g 07/21/21 aerosol inhaler (ProAir HFA) montelukast 10 mg tablet 10 mg PO BEDTIME #90 tab 07/21/21 phenylephrine 0.25 %-mineral oil 1 appl MN BID 10 Days #57 g 07/21/21 14 %-petrolatm 74.9 % rectal ointment (Preparation H) prednisone 20 mg tablet 40 mg PO DAILY 4 Days #8 tab 07/21/21 menthol 0.44 %-zinc oxide 20.6 % 1 appl TOPICAL QID PRN #113 g 08/13/21 topical ointment (Calmoseptine) benzonatate 200 mg capsule 200 mg PO TID PRN #14 cap 10/08/21 omeprazole 20 mg capsule,delayed 20 mg PO DAILY #90 cap 10/09/21 release mometasone-formoterol HFA 200 2 puff INHALATION BID 30 Days #8.8 10/19/21 mcg-5 mcg/actuation aerosol g inhaler (Dulera) omeprazole 40 mg capsule,delayed 40 mg PO BID #30 cap 10/23/21 release omeprazole 40 mg capsule,delayed 40 mg PO DAILY #30 cap 10/23/21 release Allergies Allergy/AdvReac Type Severity Reaction Status Date / Time banana [BANANA] Allergy Unknown ITCHING Verified 10/22/21 20:39 Review of Systems Review of Systems All other systems are reviewed and are negative Constitutional: Reports as per HPI and Reports no additional constitutional complaints Eyes: Reports as per HPI and Reports no additional eye complaints Reports system reviewed and no additional complaints, except as documented Cardiovascular: Reports as per HPI and Reports no additional cardiovascular complaints Respiratory: Reports as per HPI and Reports no additional respiratory complaints Gastrointestinal: Reports as per HPI and Reports no additional gastrointestinal complaints Genitourinary: Reports no additional female genitourinary complaints Musculoskeletal: Reports no additional musculoskeletal complaints Skin/Breast: Reports system reviewed and no additional complaints, except as docu Psychiatric: Reports no additional psychiatric complaints Endocrine: Reports no additional endocrine complaints Hematologic/Lymphatic: Reports no additional hematologic/lymphatic complaints Allergic/Immunologic: Reports no additional allergic/immunologic complaints Reports system reviewed and no additional complaints, except as documented and Reports Abnormal speech present [facility] Past Medical History Medical History Anxiety Asthma GERD (gastroesophageal reflux disease) 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 Surgical History History of circumcision History of facial surgery Family History Family History Father Alive and well Mother Alive and well CVA (cerebral vascular accident) Family/Other Cancer Social History Social History Housing: House Alcohol intake: current Alcohol intake frequency: holidays/special occasions only Patient Tobacco Use Status: Former Tobacco user Quit Date: 2017 e-Cigarette/Vaping Use: Never Used Second Hand Smoke Exposure: No Advance Directives: No service: No Current occupational status: disabled Cognitive needs: No Hearing needs: No Vision needs: Yes (glasses) Physical Exam ED Vital Signs: Vital Signs - 24 hr 10/23/21 14:13 Temperature 96.4 F L Pulse Rate 106 H Respiratory Rate 18 Blood Pressure 146/91 H Pulse Oximetry 99 BMI result Body Mass Index 34.3 Vital signs have been reviewed as appeared to be correct. Blood pressure normal. Heart rate elevated.Respiration rate normal. Temperature normal. Oxygen saturation normal. Appearance: Alert. Oriented X3. No acute distress. Head: Normal external exam. Normocephalic. Atraumatic. No Dixon signs noted. No raccoon eyes noted Eyes: PERRLA. EOMI. Conjunctiva and sclera normal. Eyelids normal. ENT: TM's Normal. Pharynx normal. Uvula midline. Moist mucous membranes. No trismus noted. No drooling noted. No muffled voice noted. Neck: Normal inspection. Neck supple. FROM. No adenopathy. Thyroid Normal. No meningeal signs. No neck mass noted. CVS: Normal heart rate and rhythm. Heart sound normal. No murmurs noted. Pulses normal throughout. Respiratory: No respiratory distress. Painless inspiration. Breath sounds normal. No wheezes/rales/rhonchi noted. Chest nontender. No accessory muscle usage noted or decreased air movement noted. Abdomen: Soft, mild epigastric tenderness, no rebound, no guarding. Bowel sounds normal in all 4 quadrants. No distention noted. No organomegaly noted. No visible injury noted. Back: No CVA tenderness. Full range of motion noted. Skin: Skin warm and dry. Normal skin color. Normal skin turgor. No rashe s/lesions/lacerations noted. Extremities: No lower extremity edema. Extremities exhibit normal range of motion. Extremities nontender. Neuro: Oriented X 3. Cranial nerve exam: II-XII are grossly intact No motor deficit. No sensory deficit. Reflexes normal. Course Course Course Narrative: Assessment and plan. 36-year-old male return to the emergency department with upper abdominal pain, p hysical exam findings are consistent with GERD/gastritis. Patient was instructed to continue with clear food, keep taking omeprazole, avoid smoking marijuana, and make an appointment with GI for possible upper endoscopy. MDM - Abdominal Pain Medical Records Attestation: I reviewed the patient's medical records. Lab Data Attestation: I reviewed the patient's lab results. Result diagrams: 10/23/21 19:25 10/23/21 19:25 Labs: Lab Results 10/23/21 10/23/21 10/23/21 Range/Units 19:25 19:25 19:37 WBC 8.0 (4.8-10.8) X10*3/uL RBC 4.74 (4.60-5.80) X10*6/uL Hgb 14.7 (14.0-18.0) g/dl Hct 44.1 (42.0-52.0) % MCV 93.0 (80.0-98.0) fL MCH 31.0 (27.0-33.0) pg MCHC 33.3 (31.0-36.0) g/dl RDW 12.2 (11.0-16.0) % Plt Count 189 (160-400) X10*3/uL MPV Not Reportable Immature Gran % (Auto) 0.1 (0.0-0.4) % Neut % (Auto) 64.3 (45-73) % Lymph % (Auto) 26.6 (20-40) % [place] % (Auto) 8.8 (2-11) % Eos % (Auto) 0.1 (0-4) % Baso % (Auto) 0.1 (0-2) % Lymph # (Auto) 2.1 (1.2-4.9) X10*3/uL [place] # (Auto) 0.7 (0.1-1.2) X10*3/uL Eos # (Auto) 0.0 (0.0-0.4) X10*3/uL Baso # (Auto) 0.0 (0.0-0.2) X10*3/uL Abs Immat Gran (auto) 0.01 (0.00-0.03) X10*3/uL Absolute Neuts (auto) 5.2 (2.0-8.3) x10*3/uL Absolute Nucleated RBC 0.000 (0.0-0.012) X10*3/uL Nucleated RBC % (auto) 0.0 (0.0-0.2) /100WBC Sodium 140 (135-145) mmol/L Potassium 4.4 (3.3-5.1) mmol/L Chloride 107 (96-108) mmol/L Carbon Dioxide 23 (22-29) mmol/L Anion Gap 14 (12-20) BUN 8 L (9-16) mg/dL Creatinine 0.95 (0.5-1.4) mg/dL Estim Creat Clear Calc 108.1 Estimated GFR > 60 Random Glucose 113 (60-115) mg/dL Calcium 9.8 (8.4-10.2) mg/dL Total Bilirubin 0.6 (0.0-1.0) mg/dL AST 19 (5-37) U/L ALT 38 (0-40) U/L Alkaline Phosphatase 59 (39-117) U/L Troponin I High Sens (<3.5-35.0) ng/L Total Protein 7.7 (6.5-8.0) g/dL Albumin 4.9 (3.5-5.0) g/dL Lipase 25 (8-78) U/L Urine Opiates Screen Not Detected (Not Detect) Urine Fentanyl Screen Not Detected (Not Detect) Ur Barbiturates Screen Not Detected (Not Detect) Ur Phencyclidine Scrn Not Detected (Not Detect) Ur Amphetamines Screen Not Detected (Not Detect) U Benzodiazepines Scrn Not Detected (Not Detect) Urine Cocaine Screen Not Detected (Not Detect) U Marijuana (THC) Screen POSITIVE H (Not Detect) 10/23/21 Range/Units 23:06 WBC (4.8-10.8) X10*3/uL RBC (4.60-5.80) X10*6/uL Hgb (14.0-18.0) g/dl Hct (42.0-52.0) % MCV (80.0-98.0) fL MCH (27.0-33.0) pg MCHC (31.0-36.0) g/dl RDW (11.0-16.0) % Plt Count (160-400) X10*3/uL MPV Immature Gran % (Auto) (0.0-0.4) % Neut % (Auto) (45-73) % Lymph % (Auto) (20-40) % [place] % (Auto) (2-11) % Eos % (Auto) (0-4) % Baso % (Auto) (0-2) % Lymph # (Auto) (1.2-4.9) X10*3/uL [place] # (Auto) (0.1-1.2) X10*3/uL Eos # (Auto) (0.0-0.4) X10*3/uL Baso # (Auto) (0.0-0.2) X10*3/uL Abs Immat Gran (auto) (0.00-0.03) X10*3/uL Absolute Neuts (auto) (2.0-8.3) x10*3/uL Absolute Nucleated RBC (0.0-0.012) X10*3/uL Nucleated RBC % (auto) (0.0-0.2) /100WBC Sodium (135-145) mmol/L Potassium (3.3-5.1) mmol/L Chloride (96-108) mmol/L Carbon Dioxide (22-29) mmol/L Anion Gap (12-20) BUN (9-16) mg/dL Creatinine (0.5-1.4) mg/dL Estim Creat Clear Calc Estimated GFR Random Glucose (60-115) mg/dL Calcium (8.4-10.2) mg/dL Total Bilirubin (0.0-1.0) mg/dL AST (5-37) U/L ALT (0-40) U/L Alkaline Phosphatase (39-117) U/L Troponin I High Sens < 3.5 (<3.5-35.0) ng/L Total Protein (6.5-8.0) g/dL Albumin (3.5-5.0) g/dL Lipase (8-78) U/L Urine Opiates Screen (Not Detect) Urine Fentanyl Screen (Not Detect) Ur Barbiturates Screen (Not Detect) Ur Phencyclidine Scrn (Not Detect) Ur Amphetamines Screen (Not Detect) U Benzodiazepines Scrn (Not Detect) Urine Cocaine Screen (Not Detect) U Marijuana (THC) Screen (Not Detect) Imaging Data CT scan - abdomen: Attestation: I personally reviewed and interpreted this imaging study as follows: Radiologist's impression: No acute intra-abdominal pathology to explain patient's symptoms. Discharge Plan Discharge Clinical Impression: Abdominal pain, GERD (gastroesophageal reflux disease) Patient Disposition: Home, Self-Care Instructions: Diet for Stomach Ulcers and Gastritis (ED), Gastroesophageal Reflux Disease (ED) Prescriptions: New omeprazole 40 mg capsule,delayed release(DR/EC) 40 mg PO BID Qty: 30 0RF No Action atorvastatin 20 mg tablet 20 mg PO DAILY Qty: 90 1RF Drysol 20 % solution 1 appl topical BEDTIME 20 Days Qty: 37.5 0RF hydrocortisone valerate 0.2 % cream 1 appl topical BID PRN (Reason: skin irritation) 15 Days Qty: 60 0RF omeprazole 20 mg capsule,delayed release(DR/EC) 20 mg PO DAILY Qty: 90 1RF Dulera 200-5 mcg/actuation HFA aerosol inhaler 2 puff inhalation BID 30 Days Qty: 8.8 3RF albuterol sulfate 2.5 mg/0.5 mL solution for nebulization 5 mg inhalation Q4H PRN (Reason: shortness of breath or wheezing) Qty: 30 0RF omeprazole 40 mg capsule,delayed release(DR/EC) 40 mg PO DAILY Qty: 30 0RF hydroxyzine HCl 25 mg tablet 25 mg PO TID PRN (Reason: anxiety) Qty: 10 0RF albuterol sulfate 0.63 mg/3 mL solution for nebulization 0.63 mg inhalation Q4-6H PRN (Reason: shortness of breath or wheezing) 15 Days Qty: 90 3RF montelukast 10 mg tablet 10 mg PO BEDTIME Qty: 90 1RF prednisone 20 mg tablet 40 mg PO DAILY 4 Days Qty: 8 0RF albuterol sulfate [ProAir HFA] 90 mcg/actuation HFA aerosol inhaler 2 puff PO Q6H PRN (Reason: for wheezing) 30 Days Qty: 8.5 4RF Preparation H 0.25-14-74.9 % ointment 1 appl MN BID 10 Days Qty: 57 0RF benzonatate 200 mg capsule 200 mg PO TID PRN (Reason: cough) Qty: 14 0RF menthol-zinc oxide [Calmoseptine] 0.44-20.6 % ointment 1 appl topical QID PRN (Reason: skin irritation) Qty: 113 0RF Referrals: Angella Angel MD [Physician] -
[2021-10-23 23:01] LABS: Lipase 25 U/L (8-78)
[2021-10-23 23:33] LABS: Troponin-I High Sensitivity < 3.5 ng/L (<3.5-35.0)
[2021-10-23] MEDS: Morphine Sulfate 2 MG/ML CARTRIDGE 1 MG IVPUSH (23:47)
[2021-10-23] MEDS: Magnesium Hydrox/Alum Hydrox 30 ML ORAL.SUSP PO (23:47)
[2021-10-23] MEDS: 0.9 % Sodium Chloride 1,000 ML 999 ML IV (23:47)
[2021-10-23] MEDS: Famotidine/PF 20 MG/2 ML VIAL IVPUSH (23:48)
--- NOTE | 2021-10-23 23:52 | PC.NURSE ---
pt a&o, no sob or chest pain. pt complain of abd pain. pt medicated per Jul. and Iv placed.
[2021-10-24 01:15] VITALS: BP 157/107; PULSE 82; RESP 16; TEMP 36.8; O2SAT 98
[2021-10-24 02:35] VITALS: BP 116/74
== END 2021-10-24 02:55 | disposition home or self-care (01) ==
PROVIDERS: Emergency Provider Emergency Medicine
DX: K21.9 Gastro-esophageal reflux disease without esophagitis (principal); R10.10 Upper abdominal pain, unspecified; F12.90 Cannabis use, unspecified, uncomplicated; E78.5 Hyperlipidemia, unspecified; Z79.02 Long term (current) use of antithrombotics/antiplatelets
CPT/HCPCS: 36415; 74176; 80053; 80307; 83690; 84484; 85025; 96361; 96374; 96375; 99283; 99284; J2270

== ENCOUNTER 2022-03-10 19:58 | Emergency (ER) | payer OTHER, SELFPAY ==
[2022-03-10 20:09] VITALS: BP 125/84; BP 127/82; PULSE 104; PULSE 99; RESP 17; TEMP 36.6; O2SAT 100; O2SAT 98; BMI 30.9
--- NOTE | 2022-03-10 20:16 | ED.SOB ---
HPI - SOB/Dyspnea General Chief Complaint: Dyspnea Stated Complaint: difficulty breathing Time Seen by Provider: 03/10/22 20:02 Source: patient and EMS Mode of arrival: EMS Limitations: no limitations History of Present Illness HPI Narrative: Patient comes to the emergency room complaining of an asthma exacerbation. Patient has been using her inhalers without any relief. When EMS arrived to the patient's residence, patient's oxygen saturation was 100%, diffuse wheezing. Patient received 125 mg of Solu-Medrol, 1 DuoNeb. On arrival to the emergency room, patient speaking in full sentences, very mild occasional wheezing. Patient denies any recent URI or UTI symptoms. Related Data Previous Rx's Medication Instructions Recorded albuterol sulfate 2.5 mg/0.5 mL 5 mg inhalation Q4H PRN shortness 08/06/20 solution for nebulization of breath or wheezing #30 ea albuterol sulfate 0.63 mg/3 mL 0.63 mg (3 mL) inhalation Q4-6H 04/01/21 solution for nebulization PRN shortness of breath or wheezing 15 days #90 mL phenylephrine 0.25 %-mineral oil 1 appl MO BID 10 days #57 grams 07/21/21 14 %-petrolatm 74.9 % rectal ointment (Preparation H) menthol 0.44 %-zinc oxide 20.6 % 1 appl topical QID PRN skin 08/13/21 topical ointment (Calmoseptine) irritation #113 grams mometasone-formoterol HFA 200 2 puff inhalation BID 30 days #8.8 10/19/21 mcg-5 mcg/actuation aerosol grams inhaler (Dulera) atorvastatin 20 mg tablet 20 mg PO DAILY #90 tabs 11/09/21 benzonatate 200 mg capsule 200 mg PO TID PRN cough #14 caps 11/18/21 prednisone 10 mg tablet 10 mg PO DAILY 7 days #7 tabs 11/18/21 albuterol sulfate 90 mcg/actuation 2 puff PO Q6H PRN for wheezing 30 12/08/21 aerosol inhaler (ProAir HFA) days #8.5 grams hydrocortisone valerate 0.2 % 1 appl topical BID PRN skin 01/31/22 topical cream irritation 15 days #60 grams hydroxyzine HCl 25 mg tablet 25 mg PO TID anxiety 30 days #90 02/25/22 tabs montelukast 10 mg tablet 10 mg PO BEDTIME #90 tabs 02/25/22 omeprazole 20 mg capsule,delayed 20 mg PO DAILY #90 caps 02/25/22 release aluminum chloride 20 % topical 1 appl topical BEDTIME 20 days 03/01/22 solution (Drysol) #37.5 mL albuterol sulfate 90 mcg/actuation 2 puff inhalation Q4-6H PRN 03/10/22 aerosol inhaler shortness of breath or wheezing #8.5 grams prednisone 50 mg tablet 50 mg PO DAILY #5 tabs 03/10/22 Allergies Allergy/AdvReac Type Severity Reaction Status Date / Time banana [BANANA] Allergy Unknown ITCHING Verified 02/25/22 14:13 Review of Systems Review of Systems: Constitutional : No Weight loss, No Fever, No Chills, No Night Sweats, No Fatigue, No Malaise ENT/Mouth : No Hearing loss, No Ear Pain, No Nasal Congestion, No Sinus Pain, No Hoarseness, No sore throat, No Rhinorrhea, No Swallowing Difficulty Eyes: No Eye Pain, No Swelling, No Redness, No Foreign Body, No Discharge, No Vision Changes Cardiovascular : No Chest Pain, No SOB, No Dyspnea on Exertion, No Orthopnea, No Edema, No Palpitations Respiratory : No Cough, No Sputum, complaining of Wheezing, No Smoke Exposure, complaining of Dyspnea Gastrointestinal : No Nausea, No Vomiting, No Diarrhea, No Constipation, No abdominal Pain, No Hematochezia, No Melena Genitourinary : no irregular bleeding, No Dysuria, No Urinary Frequency, No Hematuria, No Urinary Incontinence, No Urgency, No Flank Pain, No Urinary Flow Changes, No Hesitancy Musculoskeletal : No joint pain, No Myalgias, No Joint Swelling Skin : No Skin Lesions, No rash Neuro : No Weakness, No Numbness, No Paresthesias, No Loss of Consciousness, No Dizziness, No Headache Psych : No Anxiety/Panic, No Depression, No SI/HI/AH/VH, No Social Issues, Heme/Lymph: No Bruising, No Bleeding,No Lymphadenopathy Endocrine : No Polyuria, No Polydipsia, No Temperature Intolerance PMFSH Past Medical History Medical History Anxiety Asthma GERD (gastroesophageal reflux disease) 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 Surgical History History of circumcision History of facial surgery Family History Family History Father Alive and well Mother Alive and well CVA (cerebral vascular accident) Family/Other Cancer Social History Social History Housing: House Alcohol intake: current Alcohol intake frequency: a few times a week Patient Tobacco Use Status: Current everyday Tobacco user Smoked in Last 30 Days: Yes e-Cigarette/Vaping Use: Never Used Second Hand Smoke Exposure: No Use of substances other than those prescribed or required for medical reasons: Yes Substance Use Type: Marijuana Advance Directives: No Advance Directives Information Provided: No service: No Current occupational status: disabled Cognitive needs: No Hearing needs: No Vision needs: Yes (glasses) Physical Exam Vital Signs: Vital Signs: Last Vital Signs Temp 98.1 F 03/10/22 20:23 Pulse 98 03/10/22 20:43 Resp 16 03/10/22 20:43 BP 127/82 03/10/22 20:23 Pulse Ox 99 03/10/22 20:23 O2 Del Method 03/10/22 20:23 BMI result Body Mass Index 30.9 Const: Other: Appearance: Alert. Oriented X3. No acute distress. Eyes: Pupils equal, round and reactive to light. ENT: Pharynx normal. Neck: Normal inspection. Neck supple. No lymph nodes noted. No crepitus CVS: Normal heart rate and rhythm. Pulses normal. Normal S1 and S2 Respiratory: No respiratory distress. Very mild occasional bilateral wheezing, speaking full sentences, oxygen saturation 97% on room air, speaking in full sentences No rales Abdomen: Soft and nontender. No rigidity. No distention. Skin: Skin warm and dry. Normal skin color. Normal skin turgor. Extremities: No lower extremity edema. No Lacerations. No Rash Neuro: Oriented X 3. No motor deficit. No sensory deficit. Moving all extremities. No slurred speech. CN 2 through 12 grossly intact Psych: calm, cooperative, normal affect Course Course Course Narrative: Patient received a dose of Solu-Medrol per EMS, Alexandr, here in the emergency room he was given neb treatment On reassessment, patient is feeling much better, no shortness of breath, no wheezing, oxygen saturation 97% on room air. COVID test is negative. MDM - SOB/Dyspnea Lab Data Labs: Lab Results 03/10/22 Range/Units 20:33 COVID-19 ([facility]) Negative (Negative) COVID-19 Clin Com See Note Discharge Plan Discharge Clinical Impression: Asthma with exacerbation Patient Disposition: Home, Self-Care Instructions: Asthma (ED) Additional Instructions: Please follow-up with your primary care physician tomorrow. If you have any worsening or new symptoms, please return to the emergency room or call 911 Prescriptions: New prednisone 50 mg tablet 50 mg PO DAILY Qty: 5 0RF albuterol sulfate 90 mcg/actuation HFA aerosol inhaler 2 puff inhalation Q4-6H PRN (Reason: shortness of breath or wheezing) Qty: 8.5 2RF No Action Dulera 200-5 mcg/actuation HFA aerosol inhaler 2 puff inhalation BID 30 Days Qty: 8.8 3RF atorvastatin 20 mg tablet 20 mg PO DAILY Qty: 90 1RF albuterol sulfate [ProAir HFA] 90 mcg/actuation HFA aerosol inhaler 2 puff PO Q6H PRN (Reason: for wheezing) 30 Days Qty: 8.5 4RF hydrocortisone valerate 0.2 % cream 1 appl topical BID PRN (Reason: skin irritation) 15 Days Qty: 60 0RF Drysol 20 % solution 1 appl topical BEDTIME 20 Days Qty: 37.5 2RF albuterol sulfate 2.5 mg/0.5 mL solution for nebulization 5 mg inhalation Q4H PRN (Reason: shortness of breath or wheezing) Qty: 30 0RF albuterol sulfate 0.63 mg/3 mL solution for nebulization 0.63 mg inhalation Q4-6H PRN (Reason: shortness of breath or wheezing) 15 Days Qty: 90 3RF Preparation H 0.25-14-74.9 % ointment 1 appl MO BID 10 Days Qty: 57 0RF prednisone 10 mg tablet 10 mg PO DAILY 7 Days Qty: 7 0RF benzonatate 200 mg capsule 200 mg PO TID PRN (Reason: cough) Qty: 14 0RF omeprazole 20 mg capsule,delayed release(DR/EC) 20 mg PO DAILY Qty: 90 1RF hydroxyzine HCl 25 mg tablet 25 mg PO TID 30 Days Qty: 90 1RF montelukast 10 mg tablet 10 mg PO BEDTIME Qty: 90 1RF menthol-zinc oxide [Calmoseptine] 0.44-20.6 % ointment 1 appl topical QID PRN (Reason: skin irritation) Qty: 113 0RF
[2022-03-10 20:23] VITALS: BP 127/82; PULSE 98; RESP 16; RESP 17; TEMP 36.7; O2SAT 99
--- NOTE | 2022-03-10 20:28 | PC.NURSE ---
Addendum entered by Maria D Thompson 03/10/22 20:42: Pt meds are administered as order. Original Note: Pt V/S are stable, pt was connected to the telemtry and it shows sinus tachy. Pt is having [id number] treatment during the [id number]. Pt upper lungs sounds are clear and lower lobes can hear wheezing during expiration. Pt has IV 20 G on his left wrist. Pt is a/o x4, + skin turgor, no edema and appear jittery. will continue to monitor.
[2022-03-10] MEDS: Albuterol Sulfate 2.5 MG, Albuterol Sulfate (0.083%) 2.5 MG 5 MG INHALE (20:34)
[2022-03-10] MEDS: Magnesium Sulfate/H2O 2 GM/50 ML PIGGYBACK IV (20:35)
[2022-03-10 20:43] VITALS: PULSE 98; RESP 16; O2SAT 99
[2022-03-10 20:55] LABS: COVID-19 Test Negative (Negative)
[2022-03-10 21:51] VITALS: BP 129/82; PULSE 91; RESP 16; TEMP 36.6; O2SAT 97
== END 2022-03-10 22:08 | disposition home or self-care (01) ==
PROVIDERS: Emergency Provider Emergency Medicine; PCP Physician Assistant
DX: J45.901 Unspecified asthma with (acute) exacerbation (principal); R06.02 Shortness of breath; F17.210 Nicotine dependence, cigarettes, uncomplicated; Z71.6 Tobacco abuse counseling; Z20.822 Contact with and (suspected) exposure to COVID-19; Z79.899 Other long term (current) drug therapy
CPT/HCPCS: 87635; 94640; 96365; 99284; 99285; J3475

== ENCOUNTER 2022-12-09 10:45 | Outpatient (AMB) | payer OTHER, SELFPAY ==
--- NOTE | 2022-12-09 10:53 | MHC.PC.OV ---
Vital Signs 12/09/22 10:56 Height 5 ft 4 in Weight 183 lb BMI 31.4 BP 130/80 Blood Pressure Location Lt brachial Position Sitting Pulse 78 Pulse Source Pulse Oximeter Pulse Oximetry (%) 98 Oxygen Delivery Method Room Air Intake Visit Reasons: Zmfgi-Panvhhlx-Fow pain-11/14, 11/15 Intake Note: pt is here for abd pain, recently was at [facility]. chest xray & ct on abd in chart Certified Nurse Practitioner Required: No Accompanied by: Self / Same As Patient Allergies banana [BANANA] Allergy (Unknown, Verified 12/09/22 11:53) ITCHING Medication List - Last Reconciled 12/09/22 by Tanner Chiang PA-C albuterol sulfate 5 mg inhalation Q4H PRN albuterol sulfate 0.63 mg (3 mL) inhalation Q4-6H PRN 15 days albuterol sulfate 90 mcg/actuation 2 puffs inhalation Q4-6H PRN albuterol sulfate 90 mcg/actuation (Ventolin HFA) 2 puffs inhalation Q6H PRN aluminum chloride 20% (Drysol) 1 appl topical BEDTIME 20 days atorvastatin 20 mg PO DAILY benzonatate 200 mg PO TID PRN hydrocortisone valerate 0.2% 1 appl topical BID PRN 15 days hydroxyzine HCl 25 mg PO TID 30 days montelukast 10 mg PO BEDTIME omeprazole 20 mg PO DAILY sucralfate (Carafate) 10 mL PO QID Tobacco use date assessed: 12/09/22 Dental Screening Dental Screen Date: 12/09/22 Did you have a dental visit in the last 12 months?: Yes Did you have a dental problem in the last 6 months where you did not have access to dental care?: No Was dental information given to patient?: Patient has dentist HPI Uxcin-Siyejypk-Ahp pain-11/14, 11/15 HPI Details Patient is a 37 year male here today for hospital discharge follow-up. Patient has a past medical history significant for asthma, GERD, hyperlipidemia, CELINE, Has been suffering with epigastric/stomach pain that has been worsening over the last several weeks. Was seen were seen [facility] for acute abdominal pain, CT showing ? colitis. He was given dicyclomine, D&C drawn and Carafate liquid which has been helpful in reducing his epigastric pain. Most of his pain is in his epigastrium. He otherwise denies any black tarry stools, diarrhea or vomiting. Does report he does dry heave at time though no actual emesis. REPLACED BY [facility] Medical History Anxiety Asthma GERD (gastroesophageal reflux disease) 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 Surgical History History of circumcision History of facial surgery Family History Father Alive and well Mother Alive and well CVA (cerebral vascular accident) Family/Other Cancer Social History Housing: House Alcohol intake: current Alcohol intake frequency: a few times a week Patient Tobacco Use Status: Current everyday Tobacco user e-Cigarette/Vaping Use: Never Used Second Hand Smoke Exposure: No Substance Use Type: Marijuana service: No Current occupational status: disabled Cognitive needs: No Hearing needs: No Vision needs: Yes (glasses) Questionnaire Thrive Questionnaire Date Thrive assessed: 07/21/21 BRYAN-7 AMB Questionnaire BRYAN-7 Date BRYAN - 7 assessed: 07/21/21 Source: Developed by Drs. Dave Hickman, Lauren Barraza, Luis Rivera and colleagues, with an educational michaelle from [employer]. Review of Systems Const Denies headache(s) Eyes Denies loss of vision ENT Denies vertigo, Denies dizziness, Denies headache(s) and Denies sore throat Card Denies chest pain, Denies leg edema and Denies lightheadedness Resp Denies cough, Denies hemoptysis and Denies wheezing GI Reports abdominal pain, Denies melena, Denies constipation, Reports dyspepsia, Reports heartburn, Denies diarrhea, Reports nausea and Denies vomiting Denies dysuria, Denies urinary frequency and Denies urinary urgency Musc Denies arthralgias, Denies joint swelling, Denies numbness and Denies tingling Neuro Denies Abnormal speech present, Denies behavioral changes, Denies vertigo, Denies dizziness, Denies headache(s), Denies loss of vision, Denies memory loss, Denies numbness and Denies tingling Psych Denies anxiety, Denies behavioral changes, Denies depression, Denies memory loss and Denies panic attacks Kam/Lymph Denies easy bleeding and Denies easy bruising Aller/Immun Denies wheezing Physical exam (Primary Care) Vital Signs: Last Vital Signs Pulse 78 12/09/22 10:56 BP 130/80 12/09/22 10:56 Pulse Ox 98 12/09/22 10:56 Oxygen Delivery Method Room Air 12/09/22 10:56 BMI result Body Mass Index 31.4 Tobacco/Smoking Status: Tobacco use Status Tobacco use date assessed 12/09/22 12/09/22 10:56 Patient Tobacco Use Status Current everyday Tobacco 12/09/22 10:56 e-Cigarette/Vaping Use Never Used 12/09/22 10:56 Thrive Assessment: Date of Thrive Assessment Date Thrive assessed 07/21/21 12/09/22 10:56 Const General: healthy appearing, no acute distress, alert and awake Nutritional Appearance: well nourished Orientation/consciousness: oriented to person, oriented to place and oriented to time HENMT Ears: TM's normal bilaterally General nose exam: Normal nasal mucous membranes and turbinates present Eyes Conjunctivae: conjunctivae normal Sclerae: sclerae normal Pupils: Equal, round and reactive pupils present Neck Neck: Yes no lymphadenopathy and Yes no JVD Thyroid: Thyroid normal Carotids: no bruits Resp Effort & Inspection: normal respiratory effort and not tachypneic Auscultation: no crackles, no rales, no rhonchi and no wheezes Cardio Rate: regular rate Rhythm: regular rhythm Heart sounds: no murmurs and normal S1 and S2 GI Palpation (GI): Soft to palpation, nontender, no hepatomegaly and no splenomegaly Auscultation: normal bowel sounds Skin General skin exam: no rashes or lesions noted and dry skin Neuro General: oriented to person, oriented to place and oriented to time Cranial nerves: Yes Equal, round and reactive pupils present Speech: No Abnormal speech present Gait exam (Neuro): Normal gait present Motor exam (neuro): no tremor noted Extrem Right upper extremity: full ROM Left upper extremity: full ROM Right lower extremity: full ROM; no edema Left lower extremity: full ROM; no edema Psych Mental Status: mental status grossly normal Speech and movement: Normal speech and movement present Affect: normal affect Attitude: cooperative Thought process: Normal thought process present Assessment and Plan Assessment & Plan (1) GERD (gastroesophageal reflux disease): Code(s): K21.9 - Gastro-esophageal reflux disease without esophagitis Qualifiers: Esophagitis presence: without esophagitis Qualified Code(s): K21.9 - Gastro-esophageal reflux disease without esophagitis Plan: Patient's signs and symptoms most consistent with a gastric reflux/GERD strides. Advised to reduce his smoking. With continuing on PPI therapy though seems to have not been helpful. Has changed to Carafate liquid which has been helpful before each meal and at bedtime. Will refer to gastroenterology for evaluation with endoscopy as symptoms persist and have worsened. Orders: Orders H pylori Ag Stool Today K21.9 - Gastro-esophageal reflux disease without esophagitis Referrals Gastroenterology Referral K21.9 - Gastro-esophageal reflux disease without esophagitis Medications: Refilled albuterol sulfate 0.63 mg (3 mL) inhalation Q4-6H 15 days PRN 90 mL 3RF shortness of breath or wheezing J45.41 - Moderate persistent asthma with (acute) exacerbation Coding Level of Care Code Est Pt Level 4 (21437) Diagnoses GERD (gastroesophageal reflux disease) K21.9 Esophagitis presence: without esophagitis
[2022-12-09 10:56] VITALS: BP 130/80; PULSE 78; O2SAT 98; BMI 31.4
== END 2022-12-09 12:10 | disposition home or self-care (01) ==
PROVIDERS: PCP Physician Assistant; Visit Provider Physician Assistant
DX: K21.9 Gastro-esophageal reflux disease without esophagitis (principal)
CPT/HCPCS: 99214

== ENCOUNTER 2023-01-03 09:54 | Outpatient (AMB) | payer OTHER, SELFPAY ==
[2023-01-03 10:22] VITALS: BP 155/90; PULSE 74; BMI 32.1
--- NOTE | 2023-01-03 10:22 | MHC.OFFVIS ---
Intake Vital Signs 01/03/23 10:22 Height 5 ft 4 in Weight 186 lb 15.232 oz BMI 32.1 BP 155/90 H Blood Pressure Location Lt brachial Position Sitting Pulse 74 Intake Visit Reasons: Gastroesophageal reflux disease (GERD) Intake Note: Sudheer presents in office as a new.patient for GERD PT CC: pt reports having epigastric abdominal pain, diarrhea , pt denies any other GI Issues Button Tacker Required: No Accompanied by: Self / Same As Patient Allergies banana [BANANA] Allergy (Unknown, Verified 01/03/23 10:23) ITCHING HPI Gastroesophageal reflux disease (GERD) HPI Details 37-year-old male with past medical history of asthma, obesity, hyperlipidemia sleep apnea is here today for initial consultation. Patient reports that for over a year he has been having epigastric discomfort after eating. Patient started on omeprazole 20 mg initially that was just recently increased to 40 mg and he is taking 2 capsules every morning. States that he also was taking sucralfate twice a day before meals and bedtime, however recently he only takes it once a day with large meal. His symptoms are suppressed for the most part. Patient states that he can eat his usual food and she will not have any symptoms. Patient denies dyspepsia, dysphagia or odynophagia. Denies any melena, hematochezia, unintentional weight loss or ribbon like stools. Patient states that he is moving his bowels normally without having any trouble. Denies any diarrhea. Patient denies any other abdominal pain except for occasional epigastric discomfort. PCP ordered H pylori stool study the patient had not done yet. No family history of celiac disease. Patient denies any other GI concerning symptoms. [facility] Medical History Anxiety Asthma GERD (gastroesophageal reflux disease) 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 Surgical History History of circumcision History of facial surgery Family History Father Alive and well Mother Alive and well CVA (cerebral vascular accident) Family/Other Cancer Social History Housing: House Alcohol intake: current Alcohol intake frequency: a few times a week Patient Tobacco Use Status: Current everyday Tobacco user e-Cigarette/Vaping Use: Never Used Second Hand Smoke Exposure: No Substance Use Type: Marijuana service: No Current occupational status: disabled Cognitive needs: No Hearing needs: No Vision needs: Yes (glasses) Review of Systems Const Denies weight gain and Denies weight loss ENT Reports no additional complaints, Denies dysphagia and Denies odynophagia Card Reports no additional complaints Resp Reports no additional complaints GI Reports abdominal pain (Epigastric), Denies belching, Denies melena, Denies bloating, Denies change in bowel habits, Denies dysphagia, Denies excessive flatus, Denies dyspepsia, Reports heartburn, Denies diarrhea, Denies loose stools, Denies nausea, Denies odynophagia and Denies vomiting Reports no additional complaints Musc Reports no additional complaints Neuro Reports no additional complaints Psych Reports no additional complaints Endo Reports no additional complaints Physical Exam Vital Signs: Last Vital Signs Pulse 74 01/03/23 10:22 BP 155/90 H 01/03/23 10:22 BMI result Body Mass Index 32.1 Const General: healthy appearing, no acute distress and well developed Nutritional Appearance: obese Orientation/consciousness: patient oriented x3 HEENT Head: Yes normal to inspection, Yes normocephalic and Yes atraumatic Face and sinus: Yes normal facial exam Mouth: Normal oral and palatal mucosa present Throat: Yes posterior oropharynx normal, Yes tonsils normal and Yes uvula midline Eyes General: appearance normal, both eyes and all related structures Neck Neck: Yes normal visual inspection, Yes full ROM and Yes trachea midline Thyroid: Thyroid normal Resp Effort & Inspection: normal respiratory effort, able to speak in complete sentences, no tracheal deviation and symmetric chest movement Auscultation: clear to auscultation bilaterally Cardio Rate: regular rate Heart sounds: S1 normal heart sound present and S2 normal heart sound present GI Inspection: Yes normal to inspection, No distended and Yes obesity Palpation (GI): Soft to palpation, not firm, nontender and No hepatosplenomegaly present Auscultation: normal bowel sounds General: Yes no CVA tenderness Back/Spine/Pelvis Back: no CVA tenderness Skin General skin exam: elasticity normal, turgor normal and dry skin Neuro General: patient oriented x3 Psych Appearance: grossly normal Mental Status: mental status grossly normal Speech and movement: Normal speech and movement present Affect: normal affect Assessment & Plan Assessment & Plan (1) GERD (gastroesophageal reflux disease): Code(s): K21.9 - Gastro-esophageal reflux disease without esophagitis Qualifiers: Esophagitis presence: without esophagitis Qualified Code(s): K21.9 - Gastro-esophageal reflux disease without esophagitis Plan: Continue omeprazole 40 mg every morning half an hour before breakfast, continue sucralfate at bedtime. Patient was encouraged to avoid dietary triggers only denies snacking. Staying upright for minimum 3 hours after meals discussed with patient. (2) Postprandial epigastric pain: Code(s): R10.13 - Epigastric pain Plan: Postprandial epigastric pain better after using PPI and sucralfate. Patient will be sent for upper endoscopy and I will see him after the procedure. Will check for celiac, gastritis, duodenitis, esophagitis, H pylori, gastric or duodenal ulcers. Patient has obstructive sleep apnea, however patient reports that he had no trouble with anesthesia in the past. Patient is not on any anticoagulation medication. Patient is agreeable to this plan and verbalizes understanding of instructions. He was given the opportunity to ask questions and all questions answered. Thank you for allowing me to participate in his care Orders: Orders Transglutaminase IgA Today R10.9 - Unspecified abdominal pain Transglutaminase Ab IgG Today R10.9 - Unspecified abdominal pain H pylori Ag Stool Today K21.9 - Gastro-esophageal reflux disease without esophagitis Medications: New omeprazole 40 mg PO DAILY 90 caps 3RF K21.9 - Gastro-esophageal reflux disease without esophagitis Changed From sucralfate (Carafate) swish in mouth and swallow; use after food/drink 10 mL PO QID K21.9 - Gastro-esophageal reflux disease without esophagitis To sucralfate (Carafate) swish in mouth and swallow; use after food/drink 10 mL PO BEDTIME 420 mL 1RF K21.9 - Gastro-esophageal reflux disease without esophagitis Discontinued omeprazole Discontinued Reason: Doctor's Order 20 mg PO DAILY 90 caps 1RF K21.9 - Gastro-esophageal reflux disease without esophagitis Coding Level of Care Code New Pt Level 4 (12571) Diagnoses GERD (gastroesophageal reflux disease) K21.9 Esophagitis presence: without esophagitis Postprandial epigastric pain R10.13 Time Spent (min) 45 Comment 30 minutes spent with patient and additional 15 minutes spent reviewing his records
== END 2023-01-03 10:53 | disposition home or self-care (01) ==
PROVIDERS: PCP Physician Assistant; Visit Provider Nurse Practitioner Family
DX: K21.9 Gastro-esophageal reflux disease without esophagitis (principal); R10.13 Epigastric pain
CPT/HCPCS: 99204

== ENCOUNTER 2023-01-03 09:54 | Outpatient (REF) | payer OTHER, SELFPAY ==
[2023-01-06 10:08] LABS: Transglutaminase Ab IgG <1.0 U/mL; Transglutaminase IgA <1.0 U/mL
== END 2023-01-03 09:55 | disposition home or self-care (01) ==
LOC: HO.LAB 09:54
PROVIDERS: PCP Physician Assistant; Visit Provider Nurse Practitioner Family
DX: R10.13 Epigastric pain (principal); K21.9 Gastro-esophageal reflux disease without esophagitis
CPT/HCPCS: 36415; 86364; 99202

== ENCOUNTER 2023-05-02 14:39 | Outpatient (AMB) | payer OTHER, SELFPAY ==
[2023-05-02 14:43] VITALS: BP 132/92; PULSE 65; O2SAT 98; BMI 32.4
--- NOTE | 2023-05-02 14:43 | A.OFFPC_ITS ---
Vital Signs 05/02/23 14:43 Height 5 ft 4 in Weight 189 lb BMI 32.4 BP 132/92 H Blood Pressure Location Lt brachial Position Sitting Pulse 65 Pulse Source Pulse Oximeter Pulse Oximetry (%) 98 Oxygen Delivery Method Room Air Intake Visit Reasons: PE Intake Note: Patient is here today for a physical. 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 Accompanied by: Self / Same As Patient Allergies banana [BANANA] Allergy (Unknown, Verified 05/02/23 14:59) ITCHING Medication List - Last Reconciled 05/02/23 by Tanner Chiang PA-C albuterol sulfate 90 mcg/actuation 2 puffs inhalation Q4-6H PRN albuterol sulfate 0.63 mg (3 mL) inhalation Q4-6H PRN 15 days aluminum chloride 20% (Drysol) 1 appl topical BEDTIME 20 days atorvastatin 20 mg PO DAILY hydrocortisone valerate 0.2% 1 appl topical BID PRN 15 days hydroxyzine HCl 25 mg PO TID 30 days montelukast 10 mg PO BEDTIME omeprazole 40 mg PO DAILY sucralfate (Carafate) 10 mL PO BEDTIME Tobacco use date assessed: 12/09/22 HPI PE HPI Details Sudheer is a 37 year male here today for routine annual physical P patient has a past medical history significant for asthma, obesity, CELINE and hyperlipidemia . ? .. ??Asthma:?? He reports his asthma has been much better controlled since he stopped smoking tobacco. Does smoke marijuana at times. He has adapted to a better eating habits and was able to lose 15 lb since last office visit.. .. Obesity: He does understand his BMI is over 30 will work on being more physically active and adapting to better eating habits to reduce his weight.. ..Obstructive sleep apnea: Has fairly s evere obstructive sleep apnea. ? Has a PAP machine for nighttime use does unable to tolerate mask, feels he subacute at night on occasion with his CPAP mask. He has used nasal pillow mask and full facial mass both with similar effect. .. Hyperlipidemia:? Continues on statin therapy without side effect.? Most recent LDL at 127, total cholesterol 198. Vaccines: Up-to-date with tetanus and pneumonia vaccines, considering flu vaccines, declines COVID vaccine [facility] Medical History HLD (hyperlipidemia) Sleep apnea Pruritus ani Male circumcision Anxiety GERD (gastroesophageal reflux disease) Asthma Surgical History History of circumcision History of facial surgery Family History Father Alive and well Mother Alive and well CVA (cerebral vascular accident) Family/Other Cancer Social History (Updated 05/02/23 @ 15:04 by Tanner Chiang PA-C) Housing: House Alcohol intake: current Alcohol intake frequency: a few times a week Patient Tobacco Use Status: Never used Tobacco e-Cigarette/Vaping Use: Never Used Second Hand Smoke Exposure: No Substance Use Type: Marijuana service: No Current occupational status: disabled Cognitive needs: No Hearing needs: No Vision needs: Yes (glasses) Questionnaire PHQ-9 Over the last 2 weeks, how often have you been bothered by any of the following problems? 1. Little interest or pleasure in doing things: not at all 2. Feeling down, depressed, or hopeless: not at all 3. Trouble falling or staying asleep, or sleeping too much: not at all 4. Feeling tired or having little energy: not at all 5. Poor appetite or overeating: not at all 6. Feeling bad about yourself - or that you are a failure or have let yourself or your family down: not at all 7. Trouble concentrating on things, such as reading the newspaper or watching television: not at all 8. Moving or speaking so slowly that other people could have noticed. Or the opposite - being so fidgety or restless that you have been moving around a lot more than usual: not at all 9. Thoughts that you would be better off or of hurting yourself in some way: not at all Total score: 0 Depression Screening Interpretation: Negative Depression Screening Done: Yes [id number] - PHQ-9 Billing: Yes Source: Developed by Drs. Dave Hickman, Lauren Barraza, Luis Rivera and colleagues, with an educational michaelle from [employer]. Thrive Questionnaire Date Thrive assessed: 05/02/23 I am a: Patient What is your living situation today?: I have a steady place to live Within the past 12 months, did the food you bought not last and you didn't have the money to get more?: Never true Within the past 12 months, did you worry whether your food would run out before you got money to buy more?: Never true Do you have trouble paying for medicines?: No Do you have trouble getting transportation to medical appointments?: No Do you have trouble paying your heating and electricity bill?: No Do you have trouble taking care of your child, family member or friend?: No Do you have trouble with day-to-day activities such as bathing, preparing meals, shopping, managing finances, etc.?: No Are you currently unemployed and looking for a job?: No Are you interested in more education?: No Please select the resources that you would like help with: None Currently or been in a relationship where the following occur: no concerns reported AUDIT C Alcohol Use Questionnaire (AUDIT-C) 1. How often do you have a drink containing alcohol?: Never 3. How often do you have six or more drinks on one occasion?: Never Total Score: 0 BRYAN-7 AMB Questionnaire BRYAN-7 Date BRYAN - 7 assessed: 05/02/23 Feeling nervous, anxious, or on edge: 3 = Nearly every day Not being able to stop or control worryin = Nearly every day Worrying too much about different things: 3 = Nearly every day Trouble relaxin = Nearly every day Being so restless that it is hard to sit still: 3 = Nearly every day Becoming easily annoyed or irritable: 3 = Nearly every day Feeling afraid as if something awful might happen: 3 = Nearly every day Total BRYAN-7 score (0-4 normal; 5-9 mild; 10-14 moderate; 15-21 severe): 21 Source: Developed by Drs. Dave Hickman, Lauren Barraza, Luis Rivera and colleagues, with an educational michaelle from [employer]. BRYAN-7 Assessment Billing BRYAN-7 Assessment Tool: BRYAN-7 Assessment [id number] Review of Systems Const Denies body aches, Denies chills, Denies excessive sweating, Denies fatigue, Denies fever(s) and Denies headache(s) Eyes Denies blurry vision ENT Denies dysphagia, Denies vertigo, Denies dizziness, Denies headache(s), Denies hearing loss and Denies tinnitus Card Denies chest pain, Denies chest pain with activity, Denies syncope, Denies irregular heart rhythm and Denies dyspnea Resp Denies chest congestion, Denies cough, Denies hemoptysis, Denies dyspnea and Denies wheezing GI Denies abdominal pain, Denies melena, Denies hematochezia, Denies coffee ground emesis, Denies dysphagia, Denies diarrhea, Denies nausea and Denies vomiting Denies difficulty urinating, Denies dysuria, Denies urinary frequency, Denies urinary hesitancy and Denies urinary urgency Musc Denies arthralgias, Denies limited range of motion, Denies muscle cramps and Denies muscle weakness Skin/Breast Denies rash and Denies skin ulcer Neuro Denies Abnormal speech present, Denies confusion, Denies vertigo, Denies dizziness, Denies syncope, Denies headache(s), Denies memory loss and Denies seizure-like activity Psych Denies anxiety, Denies confusion, Denies depression, Denies memory loss, Denies panic attacks and Denies paranoia Endo Denies excessive sweating, Denies fatigue, Denies flushing, Denies polydipsia and Denies polyuria Aller/Immun Denies wheezing Physical exam (Primary Care) Vital Signs: Last Vital Signs Pulse 65 05/02/23 14:43 BP 132/92 H 05/02/23 14:43 Pulse Ox 98 05/02/23 14:43 Oxygen Delivery Method Room Air 05/02/23 14:43 BMI result Body Mass Index 32.4 BMI Assessment/Plan discussion: High Tobacco/Smoking Status: Tobacco use Status Tobacco use date assessed 12/09/22 05/02/23 14:43 Patient Tobacco Use Status Never used Tobacco 05/02/23 15:04 e-Cigarette/Vaping Use Never Used 05/02/23 15:04 PHQ-9: PHQ-9 Score PHQ-9: Total score 0 05/02/23 15:07 Depression Screening Interpretation: Negative Thrive Assessment: Date of Thrive Assessment Date Thrive assessed 05/02/23 05/02/23 14:59 Currently or been in a relationship where the following occur: no concerns reported Const Other: OBESE General: cooperative, comfortable, no acute distress, alert and awake; No confusion Orientation/consciousness: oriented to person, oriented to place, patient oriented x3 and No confusion HENMT Head: Yes normocephalic Ears: external ears normal and TM's normal bilaterally Face and sinus: No sinus tenderness Mouth: Normal oral and palatal mucosa present and tongue normal Teeth and gingiva: dentition normal and gingiva normal Throat: Yes posterior oropharynx normal, Yes tonsils normal and Yes uvula midline Eyes Conjunctivae: conjunctivae normal Sclerae: sclerae normal Pupils: Equal, round and reactive pupils present EOM: EOMs intact bilaterally Direct Ophthalmoscopy: No no photophobia Neck Neck: Yes no lymphadenopathy, No tender and Yes no JVD Thyroid: Thyroid normal Carotids: no bruits Chest Chest palpation & inspection: no tenderness Resp Effort & Inspection: normal respiratory effort, no audible wheezes, not labored and no stridor Auscultation: no crackles, no rales, no rhonchi and no wheezes Cardio Jugular venous distension: no JVD Rate: regular rate, not bradycardic and not tachycardic Rhythm: regular rhythm Bruits: no carotid bruits Peripheral pulses: Peripheral pulses 2+ throughout GI Inspection: Yes normal to inspection, No abdominal wall ecchymosis and No visible herniation Palpation (GI): Soft to palpation, nontender, no guarding, not rigid and No hepatosplenomegaly present Auscultation: normoactive bowel sounds General: Yes no CVA tenderness Back/Spine/Pelvis Back: no CVA tenderness and No back tenderness Cervical Spine: cervical ROM normal Thoracic/Lumbar Spine: thoracic and lumbar spine normal to inspection, straight leg raise negative bilaterally, No thoraco-lumbar ROM limited and No lumbar spinal tenderness Skin Lesions: no lesions Rashes: no rashes Wounds: no wounds Neuro General: oriented to person, oriented to place, patient oriented x3, CN's II-XI intact bilaterally and No confusion Cranial nerves: Yes Equal, round and reactive pupils present and Yes Normal accommodation reflex present Cognition (Neuro): normal cognition Speech: No Abnormal speech present Gait exam (Neuro): Normal gait present Motor exam (neuro): 5/5 motor strength present throughout Extrem Right upper extremity: full ROM; no cyanosis Left upper extremity: full ROM; no cyanosis Right lower extremity: no edema Left lower extremity: no edema Psych Appearance: grossly normal Mental Status: mental status grossly normal Affect: normal affect Attitude: cooperative Thought process: Normal thought process present Office Procedures Flu Questionnaire Does the patient have a severe egg allergy?: No Does the patient have severe life threatening allergies?: No Does the patient have a fever or illness today?: No Has the patient ever had Guillain-Nine[place] Syndrome?: No Has the patient ever had any past reaction to a flu shot?: No Immunizations flu vacc [id number] 6mos up(PF) 60 mcg(15 mcgx4)/0.5 mL IM syringe Performing Provider: Tanner Chiang PA-C [facility] Administered by: LINN Alanis on 05/02/23 14:59 Dose Route Admin Location Dispensed Lot Number Expiration Date NDC Acls Nurse 0.5 mL IM Left Deltoid 0.5 mL [id number] 11/27/23 40151-626-06 Celly VIS Given Date VIS Provided VIS Publication Date 05/02/23 Single Vaccine 21 Eligibility Eligibility Date Funding Source Not [facility] Eligible 05/02/23 Private Assessment and Plan Assessment & Plan (1) Annual physical exam: Code(s): Z00.00 - Encounter for general adult medical examination without abnormal findings (2) HLD (hyperlipidemia): Code(s): E78.5 - Hyperlipidemia, unspecified Qualifiers: Hyperlipidemia type: mixed hyperlipidemia Qualified Code(s): E78.2 - Mixed hyperlipidemia Plan: Advised patient get fasting cholesterol done to evaluate total cholesterol and LDL. Patient continues on daily use of statin therapy without side effect. (3) Moderate persistent asthma: Code(s): J45.40 - Moderate persistent asthma, uncomplicated Qualifiers: Asthma complication type: with acute exacerbation Qualified Code(s): J45.41 - Moderate persistent asthma with (acute) exacerbation Plan: Patient is a has been fairly well controlled over the last several months, He reports he stop smoking cigarettes only smokes marijuana though (4) Severe obstructive sleep apnea: Comment: AHI 75/hr, O2 gayle 74% Code(s): G47.33 - Obstructive sleep apnea (adult) (pediatric) Plan: Does have fairly severe obstructive sleep apnea. Does have a CPAP machine at home though is not able to tolerate the mask as he reports he is choking at night. He would like to establish care with a oil tank car cleaner to work with him on changing his pressures settings. (5) Obese: Code(s): E66.9 - Obesity, unspecified Qualifiers: Body mass index: BMI 39.0-39.9 Obesity classification: adult class 2 (BMI 35 - 39.9) Obesity type: due to excess calories Serious obesity comorbidity presence: without serious comorbidity Qualified Code(s): E66.09 - Other obesity due to excess calories; Z68.39 - Body mass index [BMI] 39.0-39.9, adult Plan: Patient does understand his BMI is over 30 will work on being more physically active and adapting to better eating habits to reduce his weight. (6) BRYAN (generalized anxiety disorder): Code(s): F41.1 - Generalized anxiety disorder Plan: Patient's BRYAN-7 score positive for moderate to severe anxiety. Not interested in speaking with a mental health therapist at this time. He does smoke marijuana which helps him reduces I it. Does have hydroxyzine available to him will start using this on a p.r.n. basis for anxious symptoms. Orders: Orders Influenza [id number] Immunization Today Z23 - Encounter for immunization Lipid Panel Today E78.2 - Mixed hyperlipidemia Comprehensive [facility]. Panel Fast Today E78.2 - Mixed hyperlipidemia Complete Blood Count no Diff Today E78.2 - Mixed hyperlipidemia Referrals Pulmonology Referral G47.33 - Obstructive sleep apnea (adult) (pediatric) Medications: Refilled hydrocortisone valerate 0.2% 1 appl topical BID 15 days PRN 60 grams 0RF skin irritation L29.0 - Pruritus ani atorvastatin 20 mg PO DAILY 90 tabs 1RF E78.5 - Hyperlipidemia, unspecified albuterol sulfate 0.63 mg (3 mL) inhalation Q4-6H 15 days PRN 90 mL 3RF sh ortness of breath or wheezing J45.41 - Moderate persistent asthma with (acute) exacerbation Coding Level of Care Code Est Pt Prev Care 18-39y([id number]) Diagnoses Annual physical exam Z00.00 Mixed hyperlipidemia E78.2 Hyperlipidemia type: mixed hyperlipidemia Moderate persistent asthma without complication J45.41 Asthma complication type: with acute exacerbation Severe obstructive sleep apnea G47.33 Class 2 obesity due to excess calories without serious comorbidity with body mass index (BMI) of 39.0 to 39.9 in adult E66.09; Z68.39 Body mass index: BMI 39.0-39.9 Obesity classification: adult class 2 (BMI 35 - 39.9) Obesity type: due to excess calories Serious obesity comorbidity presence: without serious comorbidity BRYAN (generalized anxiety disorder) F41.1 Additional Codes BRYAN-7 Assessment Billing - BRYAN-7 Assessment Tool: BRYAN-7 Assessment [id number] ([id number])
== END 2023-05-02 15:42 | disposition home or self-care (01) ==
PROVIDERS: PCP Physician Assistant; Visit Provider Physician Assistant
DX: Z00.00 Encounter for general adult medical examination without abnormal findings (principal); E78.2 Mixed hyperlipidemia; J45.41 Moderate persistent asthma with (acute) exacerbation; Z23 Encounter for immunization; G47.33 Obstructive sleep apnea (adult) (pediatric); E66.09 Other obesity due to excess calories; Z68.39 Body mass index [BMI] 39.0-39.9, adult; F41.1 Generalized anxiety disorder
CPT/HCPCS: 90471; 90686; 99395

== ENCOUNTER 2023-08-23 15:35 | Outpatient (AMB) | payer OTHER, SELFPAY ==
[2023-08-23 15:42] VITALS: BP 110/80; PULSE 87; O2SAT 97; BMI 31.1
--- NOTE | 2023-08-23 15:42 | A.OFFVIS_ITS ---
Intake Vital Signs 08/23/23 15:42 Height 5 ft 4 in Weight 181 lb BMI 31.1 BP 110/80 Blood Pressure Location Lt brachial Position Sitting Pulse 87 Pulse Source Pulse Oximeter Pulse Oximetry (%) 97 Oxygen Delivery Method Room Air Intake Visit Reasons: Obstructive sleep apnea Intake Note: pt is here as a new patient for CELINE, He has a cpap, when he was using the cpap he felt like he was drowning with it, so he stopped. trouble with all masks. Shipping Associate Required: No Allergies banana [BANANA] Allergy (Unknown, Verified 08/23/23 16:23) ITCHING Medication List - Last Reconciled 08/23/23 by Andrew Alarcon MD albuterol sulfate 0.63 mg (3 mL) inhalation Q4-6H PRN 15 days albuterol sulfate 90 mcg/actuation 2 puffs inhalation Q4-6H PRN aluminum chloride 20% (Drysol) 1 appl topical BEDTIME 20 days atorvastatin 20 mg PO DAILY hydrocortisone valerate 0.2% 1 appl topical BID PRN 15 days hydroxyzine HCl 25 mg PO TID 30 days montelukast 10 mg PO BEDTIME omeprazole 40 mg PO DAILY sucralfate (Carafate) 10 mL PO BEDTIME Do you need a note to return to daycare/school/sports/work: No HPI Obstructive sleep apnea HPI Details This 37 years old gentleman is being seen for the 1st time, in relation to his diagnosis of sleep apnea and in ability to use the CPAP. Along with that he is found to have a history of bronchial asthma, currently not being treated optimally. He has diagnosis of ADHD since and he is somewhat anxious. Currently he is on hydroxyzine 25 mg t.i.d.. He was diagnosed to have obstructive sleep apnea quite a few years ago. He say is it was here at [facility] but I were not able to find any record of sleep study in our system. Anyway he was prescribed CPAP apparatus back in 2019, and check twice, he remained totally non compliant. He say is that with the mask on his face he felt very anxious as if he could not get enough air and had to remove the mask. He remains symptomatic and has difficulty in getting good sleep at night. But he denies any daytime sleepiness and fatigue. He has been referred to, discuss and explore the ways that he can use the CPAP. However on my examination I find that he has bilateral wheezes. So I have talked to him about bronchial asthma. He say is he has bronchial asthma for the past many years actually since younger age. He a few months ago he was living with his grandma and that apartment was infested with molds. So his asthma got much worse, Now he has his own apartment which is relatively clean. He denies any acute attacks of wheezing but requires to use Ventolin quite a few times during the day. He is well aware that when he uses too much Ventolin he becomes more anxious. He has not been on any controller med, except that he is on montelukast 10 mg a day. [facility] Medical History HLD (hyperlipidemia) Sleep apnea Pruritus ani Male circumcision Anxiety GERD (gastroesophageal reflux disease) Asthma Surgical History History of circumcision History of facial surgery Family History Father Alive and well Mother Alive and well CVA (cerebral vascular accident) Family/Other Cancer Social History Housing: House Alcohol intake: current Alcohol intake frequency: a few times a week Patient Tobacco Use Status: Never used Tobacco e-Cigarette/Vaping Use: Never Used Second Hand Smoke Exposure: No Substance Use Type: Marijuana service: No Current occupational status: disabled Cognitive needs: No Hearing needs: No Vision needs: Yes (glasses) Review of Systems Const All systems reviewed & are unremarkable except as noted in HPI and below ENT Reports nasal congestion (Chronic) Card Denies chest pain, Denies irregular heart rhythm and Denies leg edema Resp Reports as per HPI GI Reports no additional complaints Reports no additional complaints Musc Reports no additional complaints Skin/Breast Reports system reviewed and no additional complaints, except as documented Neuro Reports no additional complaints Psych Reports anxiety, Reports mood swings and Reports other (Has been treated for ADHD since his childhood) Endo Reports no additional complaints Kam/Lymph Reports no additional complaints Aller/Immun Reports no additional complaints Physical Exam Vital Signs: Last Vital Signs Pulse 87 08/23/23 15:42 BP 110/80 08/23/23 15:42 Pulse Ox 97 08/23/23 15:42 Oxygen Delivery Method Room Air 08/23/23 15:42 BMI result Body Mass Index 31.1 Const General: healthy appearing, comfortable, no acute distress, alert and awake Orientation/consciousness: patient oriented x3 HEENT Head: Yes normal to inspection General nose exam: No nasal polyps present, mucous membranes and turbinates abnormal (Marked hypertrophy of is the in nasal turbinates on both sides) and No nasal discharge present Face and sinus: Yes sinuses nontender Mouth: oropharynx normal Throat: Yes posterior oropharynx normal Eyes General: appearance normal, both eyes and all related structures Neck Neck: Yes normal visual inspection, Yes no lymphadenopathy, Yes trachea midline and Yes no JVD Thyroid: Thyroid normal Chest Chest palpation & inspection: normal inspection of the chest, normal palpation of entire chest wall and no tenderness Resp Other: Percussion note resonant, breath sounds are equal on both sides but he has audible wheezes throughout the chest . Cardio Palpation: normal PMI Rate: regular rate Rhythm: regular rhythm Heart sounds: no gallops and no murmurs Peripheral pulses: Peripheral pulses 2+ throughout GI Palpation (GI): Soft to palpation, nontender, No hepatosplenomegaly present and no masses Auscultation: normal bowel sounds Back/Spine/Pelvis Thoracic/Lumbar Spine: thoracic and lumbar spine normal to inspection Skin General skin exam: no rashes or lesions noted Neuro General: patient oriented x3 and no focal motor deficits Cranial nerves: Yes CN's II-XII intact bilaterally Extrem General: Yes normal to inspection, Yes no clubbing, cyanosis or edema and Yes no calf tenderness Psych Appearance: grossly normal and well kempt Speech and movement: Normal speech and movement present Assessment & Plan Assessment & Plan (1) Moderate persistent asthma: Comment: He does have history of bronchial asthma for quite a few years. Currently asthma is not well controlled and he is overusing Ventolin MDI as well as albuterol in the nebulizer. Code(s): J45.40 - Moderate persistent asthma, uncomplicated Qualifiers: Asthma complication type: with acute exacerbation Qualified Code(s): J45.41 - Moderate persistent asthma with (acute) exacerbation Plan: I talked to him about his bronchial asthma. He needs a repeat pulmonary function test. He needs to have a controller agent. I have ordered Advair 1 inhalation b.i.d. I have instructed him not to use Ventolin too much. Continue montelukast 10 mg daily. (2) Severe obstructive sleep apnea: Comment: AHI 75/hr, O2 gayle 74% . He is the a well-established case of severe obstructive sleep apnea. As I mentioned above I was not able to locate the real sleep study in his case. He has been non compliant and he expresses his difficulty in using the mask. Code(s): G47.33 - Obstructive sleep apnea (adult) (pediatric) Plan: I have talked to him at length and explained the importance of using the CPAP. I told him to put the mask on his face even when he is awake during the daytime to get acclimatized. He would not be able to use nasal mask because of markedly hypertrophy of nasal turbinates. I will prescribe a fullface mask , preferably DreamWear. And advised him to use the CPAP which is already set with auto PAP mode and pressure setting 5-20 cm. He is advised to use the humidification regularly. I think he is going to go through a learning curve for a while, and we have to work with him closely. At the same time I have stress that he has to lose weight. Orders: Orders PFT pulmonary function test Today J45.40 - Moderate persistent asthma, uncomplicated Medications: New fluticasone propion-salmeterol 250-50 mcg/dose (Advair Diskus) 1 inh inhalation BID 60 ea 3RF ASTHMA 30 days Coding Level of Care Code New Pt Level 4 (64617) Diagnoses Moderate persistent asthma without complication J45.41 Asthma complication type: with acute exacerbation Severe obstructive sleep apnea G47.33
== END 2023-08-23 16:20 | disposition home or self-care (01) ==
PROVIDERS: PCP Physician Assistant; Visit Provider Internal Medicine
DX: J45.41 Moderate persistent asthma with (acute) exacerbation (principal); G47.33 Obstructive sleep apnea (adult) (pediatric)
CPT/HCPCS: 99204

== ENCOUNTER → 2023-08-23 15:35 | Outpatient (BNVA) | payer OTHER, SELFPAY | PROVIDERS: PCP Physician Assistant; Visit Provider Internal Medicine | DX: J45.41 Moderate persistent asthma with (acute) exacerbation (principal); G47.33 Obstructive sleep apnea (adult) (pediatric) | CPT/HCPCS: 99202 ==

== ENCOUNTER 2023-08-31 08:51 | Outpatient (REF) | payer OTHER, SELFPAY ==
[2023-08-31 10:23] VITALS: PULSE 95; RESP 16; O2SAT 98
--- NOTE | 2023-08-31 11:20 | PFT_ITS ---
Indication: Asthma Spirometry [FEV1 to FVC 62%; FEV1 3.21 L; FVC 5.19 L. no significant response to bronchodilators noted. Maximum voluntary ventilation 71% predicted] Lung Volumes [Tolerant capacity 117% predicted; residual volume 125% predicted] Diffusion Capacity [DLCO 138% predicted] Comparisons [None] Interpretation [This is an obstructive ventilatory defect consistent with mild COPD. Patient likely has asthma COPD overlap syndrome. No significant response to bronchodilators noted. This is a mild decrease in the maximum voluntary ventilation secondary to likely worsening dynamic inspiratory capacity. Lung volumes with significant air trapping and a trend of hyperinflation due to the obstructive airway disease. In addition to that the patient does have a significantly elevated diffusing capacity likely secondary to exogenous exposure to carbon monoxide.] MTDD
== END 2023-08-31 08:52 | disposition home or self-care (01) ==
LOC: HO.RESP 08:51
PROVIDERS: PCP Physician Assistant; Visit Provider Internal Medicine
DX: J45.40 Moderate persistent asthma, uncomplicated (principal)
CPT/HCPCS: 94010; 94640; 94727; 94729

== ENCOUNTER → 2023-08-31 11:20 | Outpatient (BNV) | payer OTHER, SELFPAY | PROVIDERS: PCP Physician Assistant; Visit Provider Hospitalist | DX: J45.40 Moderate persistent asthma, uncomplicated (principal) | CPT/HCPCS: 94060; 94727; 94729 ==

== ENCOUNTER 2023-09-22 14:30 | Outpatient (AMB) | payer OTHER, SELFPAY ==
[2023-09-22 14:37] VITALS: BP 110/78; PULSE 87; O2SAT 97; BMI 31.6
--- NOTE | 2023-09-22 14:37 | A.OFFVIS_ITS ---
Vital Signs 09/22/23 14:37 Height 5 ft 4 in Weight 184 lb 1.376 oz BMI 31.6 BP 110/78 Blood Pressure Location Lt brachial Position Sitting Pulse 87 Pulse Source Pulse Oximeter Pulse Oximetry (%) 97 Oxygen Delivery Method Room Air Intake Visit Reasons: Obstructive sleep apnea Intake Note: pt is here for follow up and will start the cpap soon he is waiting to get distilled water. Assistant Banquet Manager Required: No Allergies banana [BANANA] Allergy (Unknown, Verified 09/22/23 14:57) ITCHING Medication List - Last Reconciled 09/22/23 by Andrew Alarcon MD albuterol sulfate 0.63 mg (3 mL) inhalation Q4-6H PRN 15 days albuterol sulfate 90 mcg/actuation 2 puffs inhalation Q4-6H PRN aluminum chloride 20% (Drysol) 1 appl topical BEDTIME 20 days atorvastatin 20 mg PO DAILY fluticasone propion-salmeterol 250-50 mcg/dose (Advair Diskus) 1 inh inhalation BID 30 days hydrocortisone valerate 0.2% 1 appl topical BID PRN 15 days hydroxyzine HCl 25 mg PO TID 30 days montelukast 10 mg PO BEDTIME omeprazole 40 mg PO DAILY sucralfate (Carafate) 10 mL PO BEDTIME Do you need a note to return to daycare/school/sports/work: No HPI HPI Obstructive sleep apnea: Details: 37 years old gentleman is here for follow-up. He has not started using his CPAP regularly as he was lacking distilled water. He does plan to start using it more regularly. In the meantime he is sleeping fairly well. Breathing has been under good control since he was started on Advair 250-50 b.i.d., and he has not use the albuterol inhaler much. He is nonsmoker. [facility] Medical History HLD (hyperlipidemia) Sleep apnea Pruritus ani Male circumcision Anxiety GERD (gastroesophageal reflux disease) Asthma Surgical History History of circumcision History of facial surgery Family History Father Alive and well Mother Alive and well CVA (cerebral vascular accident) Family/Other Cancer Social History Housing: House Alcohol intake: current Alcohol intake frequency: a few times a week Patient Tobacco Use Status: Never used Tobacco e-Cigarette/Vaping Use: Never Used Second Hand Smoke Exposure: No Substance Use Type: Marijuana service: No Current occupational status: disabled Cognitive needs: No Hearing needs: No Vision needs: Yes (glasses) Review of Systems Const All systems reviewed & are unremarkable except as noted in HPI and below ENT Reports nasal congestion (Chronic) Card Denies chest pain, Denies irregular heart rhythm and Denies leg edema Resp Reports as per HPI GI Reports no additional complaints Reports no additional complaints Musc Reports no additional complaints Skin/Breast Reports system reviewed and no additional complaints, except as documented Neuro Reports no additional complaints Psych Reports anxiety, Reports mood swings and Reports other (Has been treated for ADHD since his childhood) Endo Reports no additional complaints Kam/Lymph Reports no additional complaints Aller/Immun Reports no additional complaints Physical Exam Vital Signs: Last Vital Signs Pulse 87 09/22/23 14:37 BP 110/78 09/22/23 14:37 Pulse Ox 97 09/22/23 14:37 Oxygen Delivery Method Room Air 09/22/23 14:37 BMI result Body Mass Index 31.6 Const General: healthy appearing, comfortable, no acute distress, alert and awake Orientation/consciousness: patient oriented x3 HEENT Head: Yes normal to inspection General nose exam: No nasal polyps present, mucous membranes and turbinates abnormal (Marked hypertrophy of is the in nasal turbinates on both sides) and No nasal discharge present Face and sinus: Yes sinuses nontender Mouth: oropharynx normal Throat: Yes posterior oropharynx normal Eyes General: appearance normal, both eyes and all related structures Neck Neck: Yes normal visual inspection, Yes no lymphadenopathy, Yes trachea midline and Yes no JVD Thyroid: Thyroid normal Chest Chest palpation & inspection: normal inspection of the chest, normal palpation of entire chest wall and no tenderness Resp Other: Percussion note is resonant, he has good breath sounds on both sides. No wheezes or rhonchi are heard today. Cardio Palpation: normal PMI Rate: regular rate Rhythm: regular rhythm Heart sounds: no gallops and no murmurs Peripheral pulses: Peripheral pulses 2+ throughout GI Palpation (GI): Soft to palpation, nontender, No hepatosplenomegaly present and no masses Auscultation: normal bowel sounds Back/Spine/Pelvis Thoracic/Lumbar Spine: thoracic and lumbar spine normal to inspection Skin General skin exam: no rashes or lesions noted Neuro General: patient oriented x3 and no focal motor deficits Cranial nerves: Yes CN's II-XII intact bilaterally Extrem General: Yes normal to inspection, Yes no clubbing, cyanosis or edema and Yes no calf tenderness Psych Appearance: grossly normal and well kempt Speech and movement: Normal speech and movement present Results Reviewed Results Reviewed: Pulmonary function test; He has mild obstructive airway disorder with no significant response to BD therapy. There is evidence of some hyperinflation and air trapping. Assessment & Plan Assessment & Plan (1) Moderate persistent asthma: Comment: Pulmonary function test actually showed mild obstructive airway disorder but no response to BD This indicates chronic obstructive airway disorder , rather than bronchial asthma. He has had good response to the treatment with Advair 250-50 b.i.d. Code(s): J45.40 - Moderate persistent asthma, uncomplicated Category: Medical Qualifiers: Asthma complication type: with acute exacerbation Qualified Code(s): J45.41 - Moderate persistent asthma with (acute) exacerbation Plan: Continue Advair 250-51 inhalation b.i.d.. Use albuterol inhaler only as needed (2) Severe obstructive sleep apnea: Comment: AHI 75/hr, O2 gayle 74% . He is the a well-established case of severe obstructive sleep apnea. Patient had been instructed to start using the CPAP regularly with fullface mask. He has not started using yet because he did not have distilled water as he says. Code(s): G47.33 - Obstructive sleep apnea (adult) (pediatric) Category: Medical Plan: Again educated about his sleep apnea. Urge to start using it regularly , and he promises that he will use. Coding Level of Care Code Est Pt Level 3 (90289) Diagnoses Moderate persistent asthma without complication J45.41 Asthma complication type: with acute exacerbation Severe obstructive sleep apnea G47.33
== END 2023-09-22 14:58 | disposition home or self-care (01) ==
PROVIDERS: PCP Physician Assistant; Visit Provider Internal Medicine
DX: J45.41 Moderate persistent asthma with (acute) exacerbation (principal); G47.33 Obstructive sleep apnea (adult) (pediatric)
CPT/HCPCS: 99213

== ENCOUNTER → 2023-09-22 14:30 | Outpatient (BNVA) | payer OTHER, SELFPAY | PROVIDERS: PCP Physician Assistant; Visit Provider Internal Medicine | DX: G47.33 Obstructive sleep apnea (adult) (pediatric) (principal); J45.41 Moderate persistent asthma with (acute) exacerbation | CPT/HCPCS: 99212 ==

== ENCOUNTER 2024-05-01 14:50 | Outpatient (AMB) | payer OTHER, SELFPAY ==
[2024-05-01 15:05] VITALS: BP 126/84; PULSE 82; O2SAT 97; BMI 31.6
--- NOTE | 2024-05-01 15:05 | MHC.PC.OV ---
Vital Signs 05/01/24 15:05 Height 5 ft 4 in Weight 184 lb 2 oz BMI 31.6 BP 126/84 Blood Pressure Location Lt brachial Position Sitting Pulse 82 Pulse Source Pulse Oximeter Pulse Oximetry (%) 97 Oxygen Delivery Method Room Air Intake Visit Reasons: f/u asthma Allergies banana [BANANA] Allergy (Unknown, Verified 05/01/24 15:15) ITCHING Medication List - Last Reconciled 05/01/24 by Tanner Chiang PA-C albuterol sulfate 0.63 mg (3 mL) inhalation Q4-6H PRN 15 days albuterol sulfate 90 mcg/actuation 2 puffs inhalation Q4-6H PRN aluminum chloride 20% (Drysol) 1 appl topical BEDTIME 20 days atorvastatin 20 mg PO DAILY fluticasone propion-salmeterol 250-50 mcg/dose (Advair Diskus) 1 inh inhalation BID 30 days hydrocortisone valerate 0.2% 1 appl topical BID PRN 15 days hydroxyzine HCl 25 mg PO TID 30 days montelukast 10 mg PO BEDTIME omeprazole 40 mg PO DAILY sucralfate (Carafate) 10 mL PO BEDTIME Tobacco use date assessed: 12/09/22 Dental Screening Dental Screen Date: 12/09/22 HPI f/u asthma HPI Details Sudheer is a 38 year male here today for a follow-up visit P patient has a past medical history significant for asthma, obesity, CELINE and hyperlipidemia Concern--> reports over last 4 months having decreased hearing out of his left ear. He also reports having some lower back pressure when starting micturition. He denies any particular recent back injury. This has been evident over the last 5 months PLAN: Will send for bladder ultrasound evaluate for bladder stone versus interstitial cystitis Also reports he still has irritation around his anus particularly after he passes a bowel. He has seen in rectal surgeon whom recommended continuing with hydrocortisone cream. . ? .. ??Asthma:?? He reports his asthma has been much better controlled since he stopped smoking tobacco. Does smoke marijuana at times. He is followed by [facility] and continues on a maintenance inhaler which has significantly improved his asthma.. .. Obesity: He does understand his BMI is over 30 will work on being more physically active and adapting to better eating habits to reduce his weight.. ..Obstructive sleep apnea: Has fairly severe obstructive sleep apnea. ? Has a PAP machine for nighttime use does unable to tolerate mask, feels he subacute at night on occasion with his CPAP mask. He has used nasal pillow mask and full facial mass both with similar effect. .. Hyperlipidemia:? Continues on statin therapy without side effect.? Most recent LDL at 127, total cholesterol 198. [facility] Medical History HLD (hyperlipidemia) Sleep apnea Pruritus ani Male circumcision Anxiety GERD (gastroesophageal reflux disease) Asthma Surgical History History of circumcision History of facial surgery Family History Father Alive and well Mother Alive and well CVA (cerebral vascular accident) Family/Other Cancer Social History Housing: House Alcohol intake: current Alcohol intake frequency: a few times a week Patient Tobacco Use Status: Never used Tobacco e-Cigarette/Vaping Use: Never Used Second Hand Smoke Exposure: No Substance Use Type: Marijuana service: No Current occupational status: disabled Cognitive needs: No Hearing needs: No Vision needs: Yes (glasses) Questionnaire PHQ-9 Over the last 2 weeks, how often have you been bothered by any of the following problems? 1. Little interest or pleasure in doing things: not at all 2. Feeling down, depressed, or hopeless: not at all 3. Trouble falling or staying asleep, or sleeping too much: not at all 4. Feeling tired or having little energy: not at all 5. Poor appetite or overeating: not at all 6. Feeling bad about yourself - or that you are a failure or have let yourself or your family down: not at all 7. Trouble concentrating on things, such as reading the newspaper or watching television: not at all 8. Moving or speaking so slowly that other people could have noticed. Or the opposite - being so fidgety or restless that you have been moving around a lot more than usual: not at all 9. Thoughts that you would be better off or of hurting yourself in some way: not at all Total score: 0 Depression Screening Interpretation: Negative Depression Screening Done: Yes 20648 - PHQ-9 Billing: Yes Source: Developed by Drs. Dave Hickman, Lauren Barraza, Luis Rivera and colleagues, with an educational michaelle from [employer] Thrive Questionnaire Date Thrive assessed: 05/01/24 I am a: Patient What is your living situation today?: I have a steady place to live Within the past 12 months, did the food you bought not last and you didn't have the money to get more?: Never true Within the past 12 months, did you worry whether your food would run out before you got money to buy more?: Never true Do you have trouble paying for medicines?: No Do you have trouble getting transportation to medical appointments?: No Do you have trouble paying your heating and electricity bill?: No Do you have trouble taking care of your child, family member or friend?: No Do you have trouble with day-to-day activities such as bathing, preparing meals, shopping, managing finances, etc.?: No Are you currently unemployed and looking for a job?: No Are you interested in more education?: No Please select the resources that you would like help with: None Currently or been in a relationship where the following occur: No concerns reported THRIVE Score: 0 AUDIT C Alcohol Use Questionnaire (AUDIT-C) 1. How often do you have a drink containing alcohol?: Never 3. How often do you have six or more drinks on one occasion?: Never Total Score: 0 BRYAN-7 AMB Questionnaire BRYAN-7 Date BRYAN - 7 assessed: 05/01/24 Feeling nervous, anxious, or on edge: 0 = Not at all Not being able to stop or control worryin = Not at all Worrying too much about different things: 0 = Not at all Trouble relaxin = Not at all Being so restless that it is hard to sit still: 0 = Not at all Becoming easily annoyed or irritable: 0 = Not at all Feeling afraid as if something awful might happen: 0 = Not at all Total BRYAN-7 score (0-4 normal; 5-9 mild; 10-14 moderate; 15-21 severe): 0 Source: Developed by Lauren Medina Kurt Kroenke and colleagues, with an educational michaelle from [employer] BRYAN-7 Assessment Billing BRYAN-7 Assessment Tool: BRYAN-7 Assessment 93421 ACT Questionnaire In the past 4 weeks, how much of the time did your asthma keep you from getting as much done at work, school or at home?: None of the time During the past 4 weeks, how often have you had shortness of breath?: Not at all During the past 4 weeks, how often did your asthma symptoms wake you up at night or earlier than usual in the morning?: Not at all During the past 4 weeks, how often have you had to use your rescue inhaler or nebulizer medication?: Once a week or less How would you rate your asthma control during the past 4 weeks?: Completely controlled ACT Interpretation: Negative Score: 24 Review of Systems Const Denies headache(s) Eyes Denies loss of vision ENT Denies vertigo, Denies dizziness, Denies headache(s) and Denies sore throat Card Denies chest pain, Denies leg edema and Denies lightheadedness Resp Denies cough, Denies hemoptysis and Denies wheezing GI Denies abdominal pain, Denies melena, Denies constipation, Denies diarrhea and Denies vomiting Denies dysuria, Denies urinary frequency and Denies urinary urgency Musc Denies arthralgias, Denies joint swelling, Denies numbness and Denies tingling Neuro Denies Abnormal speech present, Denies behavioral changes, Denies vertigo, Denies dizziness, Denies headache(s), Denies loss of vision, Denies memory loss, Denies numbness and Denies tingling Psych Denies anxiety, Denies behavioral changes, Denies depression, Denies memory loss and Denies panic attacks Kam/Lymph Denies easy bleeding and Denies easy bruising Aller/Immun Denies wheezing Physical exam (Primary Care) Vital Signs: Last Vital Signs Pulse 82 05/01/24 15:05 BP 126/84 05/01/24 15:05 Pulse Ox 97 05/01/24 15:05 Oxygen Delivery Method Room Air 05/01/24 15:05 BMI result Body Mass Index 31.6 Tobacco/Smoking Status: Tobacco use Status Tobacco use date assessed 12/09/22 05/01/24 15:06 Patient Tobacco Use Status Never used Tobacco 05/01/24 15:06 e-Cigarette/Vaping Use Never Used 05/01/24 15:06 PHQ-9: PHQ-9 Score PHQ-9: Total score 0 05/01/24 15:17 Depression Screening Interpretation: Negative Thrive Assessment: Date of Thrive Assessment Date Thrive assessed 05/01/24 05/01/24 15:11 Currently or been in a relationship where the following occur: No concerns reported Const General: healthy appearing, no acute distress, alert and awake Nutritional Appearance: well nourished Orientation/consciousness: oriented to person, oriented to place and oriented to time HENMT Ears: TM's normal bilaterally General nose exam: Normal nasal mucous membranes and turbinates present Eyes Conjunctivae: conjunctivae normal Sclerae: sclerae normal Pupils: Equal, round and reactive pupils present Neck Neck: Yes no lymphadenopathy and Yes no JVD Thyroid: Thyroid normal Carotids: no bruits Resp Effort & Inspection: normal respiratory effort and not tachypneic Auscultation: no crackles, no rales, no rhonchi and no wheezes Cardio Rate: regular rate Rhythm: regular rhythm Heart sounds: no murmurs and normal S1 and S2 GI Palpation (GI): Soft to palpation, nontender, no hepatomegaly and no splenomegaly Auscultation: normal bowel sounds Skin General skin exam: no rashes or lesions noted and dry skin Neuro General: oriented to person, oriented to place and oriented to time Cranial nerves: Yes Equal, round and reactive pupils present Speech: No Abnormal speech present Gait exam (Neuro): Normal gait present Motor exam (neuro): no tremor noted Extrem Right upper extremity: full ROM Left upper extremity: full ROM Right lower extremity: full ROM; no edema Left lower extremity: full ROM; no edema Psych Mental Status: mental status grossly normal Speech and movement: Normal speech and movement present Affect: normal affect Attitude: cooperative Thought process: Normal thought process present Office Procedures Flu Questionnaire Does the patient have a severe egg allergy?: No Does the patient have severe life threatening allergies?: No Does the patient have a fever or illness today?: No Has the patient ever had Guillain-[place] Syndrome?: No Has the patient ever had any past reaction to a flu shot?: No Immunizations Fluarix Triv [id number] (PF) 45 mcg (15 mcg x 3)/0.5 mL IM syringe Performing Provider: Tanner Chiang PA-C [facility] Administered by: LINN Alanis on 05/01/24 15:06 Dose Route Admin Location Dispensed Lot Number Expiration Date [facility] [place] 0.5 mL IM Left Deltoid 0.5 mL [id number] 11/26/24 35552-612-31 [employer] VIS Given Date VIS Provided VIS Publication Date 05/01/24 Single Vaccine 21 Eligibility Eligibility Date Funding Source Not [facility] Eligible 05/01/24 Private Coding Level of Care Code Est Pt Level 4 (99869) Diagnoses Mixed hyperlipidemia E78.2 Hyperlipidemia type: mixed hyperlipidemia Moderate persistent asthma without complication J45.41 Asthma complication type: with acute exacerbation BRYAN (generalized anxiety disorder) F41.1 Lumbar spine pain M54.50 Sensorineural hearing loss (SNHL) of left ear, unspecified hearing status on contralateral side H90.5 Contralateral hearing status: unspecified Sensation of pressure in bladder area R39.89 Additional Codes BRYAN-7 Assessment Billing - BRYAN-7 Assessment Tool: BRYAN-7 Assessment 72897 ([id number]) PHQ-9 - 31346 - PHQ-9 Billing: Yes ([id number]) Asthma Control Questionnaire - ACT Interpretation: Negative ([id number]) Assessment & Plan Assessment & Plan (1) HLD (hyperlipidemia): Code(s): E78.5 - Hyperlipidemia, unspecified Category: Medical Qualifiers: Hyperlipidemia type: mixed hyperlipidemia Qualified Code(s): E78.2 - Mixed hyperlipidemia Plan: He continues with statin therapy without side effect. Will get fasting labs to evaluate total cholesterol and LDL. Goal LDL is to be below 130 (2) Moderate persistent asthma: Comment: Pulmonary function test actually showed mild obstructive airway disorder but no response to BD This indicates chronic obstructive airway disorder , rather than bronchial asthma. He has had good response to the treatment with Advair 250-50 b.i.d. Code(s): J45.40 - Moderate persistent asthma, uncomplicated Category: Medical Qualifiers: Asthma complication type: with acute exacerbation Qualified Code(s): J45.41 - Moderate persistent asthma with (acute) exacerbation Plan: He reports his asthma has been well controlled since using a maintenance inhaler. He reports not having to use his albuterol inhaler much. Unfortunately still does smoke marijuana from time to time (3) BRYAN (generalized anxiety disorder): Code(s): F41.1 - Generalized anxiety disorder Category: Medical Plan: He reports his anxiety has been well controlled with nonpharmacological techniques. Does use hydroxyzine to sleep at times. (4) Lumbar spine pain: Code(s): M54.50 - Low back pain, unspecified Category: Medical Plan: Does report having lower back pain particularly having pressure when starting to urinate. (5) Left SNHL: Code(s): H90.5 - Unspecified sensorineural hearing loss Category: Medical Qualifiers: Contralateral hearing status: unspecified Qualified Code(s): H90.5 - Unspecified sensorineural hearing loss Plan: He reports a 4-5 month history of left ear decreased hearing. He reports he used a Q-tip to clean his ear the day after he has had decreased hearing. On physical exam there is no cerumen impaction. Will send for a hearing exam to evaluate for sensorineural hearing loss. (6) Sensation of pressure in bladder area: Code(s): R39.89 - Other symptoms and signs involving the genitourinary system Category: Medical Plan: As per HPI patient does report a lot of pelvic pressure and lower back pressure when he urinates. Will send for ultrasound of both bladder to evaluate for interstitial cystitis versus a bladder stone. Orders: Orders Influenza [id number] Immunization 05/01/24 Z23 - Encounter for immunization Complete Blood Count no Diff 05/01/24 E78.2 - Mixed hyperlipidemia Lipid Panel 05/01/24 E78.2 - Mixed hyperlipidemia Comprehensive [place]. Panel Fast 05/01/24 E78.2 - Mixed hyperlipidemia US bladder 05/01/24 M54.50 - Low back pain, unspecified, R39.89 - Other symptoms and signs involving the genitourinary system Referrals Speech and Hearing Referral H90.5 - Unspecified sensorineural hearing loss
== END 2024-05-01 16:08 | disposition home or self-care (01) ==
PROVIDERS: PCP Physician Assistant; Visit Provider Physician Assistant
DX: E78.2 Mixed hyperlipidemia (principal); J45.41 Moderate persistent asthma with (acute) exacerbation; F41.1 Generalized anxiety disorder; M54.50 Low back pain, unspecified; H90.5 Unspecified sensorineural hearing loss; R39.89 Other symptoms and signs involving the genitourinary system

== ENCOUNTER → 2024-05-01 14:50 | Outpatient (BNVA) | payer OTHER, SELFPAY | PROVIDERS: PCP Physician Assistant; Visit Provider Physician Assistant | DX: Z23 Encounter for immunization (principal); E78.2 Mixed hyperlipidemia; J45.41 Moderate persistent asthma with (acute) exacerbation; F41.1 Generalized anxiety disorder; M54.50 Low back pain, unspecified; H90.5 Unspecified sensorineural hearing loss; R39.89 Other symptoms and signs involving the genitourinary system | CPT/HCPCS: 90471; 90656; 96127; 96160; 99212 ==

== ENCOUNTER 2024-05-31 12:35 | Outpatient (REF) | payer OTHER, SELFPAY | END 2024-05-31 12:36 | disposition home or self-care (01) | LOC: HO.SH 12:35 | PROVIDERS: Visit Provider Physician Assistant | DX: H90.5 Unspecified sensorineural hearing loss (principal) | CPT/HCPCS: 92557; 92567; 92588 ==

== ENCOUNTER 2025-01-23 10:21 | Outpatient (AMB) | payer OTHER, SELFPAY ==
[2025-01-23 10:23] VITALS: BP 120/86; PULSE 95; RESP 18; TEMP 36.2; O2SAT 95; BMI 30.1
--- NOTE | 2025-01-23 10:23 | MHC.PC.OV ---
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: No Accompanied by: Self / Same As Patient Allergies banana (BANANA) Allergy (Unknown, Verified 01/23/25 10:44) ITCHING Medication List - Last Reconciled 01/23/25 by Tanner Chiang PA-C albuterol sulfate 0.63 mg (3 mL) inhalation Q4-6H PRN 15 days albuterol sulfate 90 mcg/actuation 2 puffs inhalation Q4-6H PRN aluminum chloride 20% (Drysol) 1 appl topical BEDTIME 20 days atorvastatin 20 mg PO DAILY fluticasone propion-salmeterol 250-50 mcg/dose (Advair Diskus) 1 inh inhalation BID 30 days hydrocortisone valerate 0.2% 1 appl topical BID PRN 15 days hydroxyzine HCl 25 mg PO TID 30 days montelukast 10 mg PO BEDTIME omeprazole 40 mg PO DAILY Tobacco use date assessed: 01/23/25 Dental Screening Dental Screen Date: 01/23/25 Did you have a dental visit in the last 12 months?: Yes Did you have a dental problem in the last 6 months where you did not have access to dental care?: No Was dental information given to patient?: Patient has 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 Concern--> The patient reports bladder pain and suspects it might be related to his kidneys. He has missed previous appointments for an ultrasound due to transportation issues. -->He lives alone and has difficulty managing daily activities due to a learning disability, which affects his ability to cook and manage groceries effectively. ?Asthma:?? He reports his asthma has been much better controlled since he stopped smoking tobacco. Does smoke marijuana at times. He is followed by [facility] and continues on a maintenance inhaler which has significantly improved his asthma.. .. class 1 Obesity: He does understand his BMI is over 30 will work on being more physically active and adapting to better eating habits to reduce his weight.. ..Obstructive sleep apnea: Has fairly severe obstructive sleep apnea. ? Has a PAP machine for nighttime use does unable to tolerate mask, feels he subacute at night on occasion with his CPAP mask. He has used nasal pillow mask and full facial mass both with similar effect. .. Hyperlipidemia:? Continues on statin therapy without side effect.? Most recent LDL at 127, total cholesterol 198. Laboratory Tests 04/03/21 10/23/21 08:55 19:25 Random Glucose 113 Hemoglobin A1c % 5.3 [facility] Medical History HLD (hyperlipidemia) Sleep apnea Pruritus ani Male circumcision Anxiety GERD (gastroesophageal reflux disease) Asthma Surgical History History of circumcision History of facial surgery Family History Father Alive and well Mother Alive and well CVA (cerebral vascular accident) Family/Other Cancer Social History Housing: House Alcohol intake: current Alcohol intake frequency: a few times a week Patient Tobacco Use Status: Never used Tobacco e-Cigarette/Vaping Use: Never Used Second Hand Smoke Exposure: No Substance Use Type: Marijuana service: No Current occupational status: disabled Cognitive needs: No Hearing needs: No Vision needs: Yes (glasses) Questionnaire PHQ-9 Over the last 2 weeks, how often have you been bothered by any of the following problems? 1. Little interest or pleasure in doing things: not at all 2. Feeling down, depressed, or hopeless: not at all 3. Trouble falling or staying asleep, or sleeping too much: not at all 4. Feeling tired or having little energy: not at all 5. Poor appetite or overeating: not at all 6. Feeling bad about yourself - or that you are a failure or have let yourself or your family down: not at all 7. Trouble concentrating on things, such as reading the newspaper or watching television: not at all 8. Moving or speaking so slowly that other people could have noticed. Or the opposite - being so fidgety or restless that you have been moving around a lot more than usual: not at all 9. Thoughts that you would be better off or of hurting yourself in some way: not at all Total score: 0 Depression Screening Interpretation: Negative Depression Screening Done: Yes 69648 - PHQ-9 Billing: Yes Source: Developed by Drs. Dave Hickman, Lauren Barraza, Luis Rivera and colleagues, with an educational michaelle from [employer]. Thrive Questionnaire Date Thrive assessed: 01/23/25 I am a: Patient What is your living situation today?: I have a steady place to live Within the past 12 months, did the food you bought not last and you didn't have the money to get more?: Never true Within the past 12 months, did you worry whether your food would run out before you got money to buy more?: Never true Do you have trouble paying for medicines?: No Do you have trouble getting transportation to medical appointments?: No Do you have trouble paying your heating and electricity bill?: No Do you have trouble taking care of your child, family member or friend?: No Do you have trouble with day-to-day activities such as bathing, preparing meals, shopping, managing finances, etc.?: No Are you currently unemployed and looking for a job?: No Are you interested in more education?: No Please select the resources that you would like help with: None Currently or been in a relationship where the following occur: No concerns reported THRIVE Score: 0 AUDIT C Alcohol Use Questionnaire (AUDIT-C) 1. How often do you have a drink containing alcohol?: Never 3. How often do you have six or more drinks on one occasion?: Never Total Score: 0 BRYAN-7 AMB Questionnaire BRYAN-7 Date BRYAN - 7 assessed: 01/23/25 Feeling nervous, anxious, or on edge: 0 = Not at all Not being able to stop or control worryin = Not at all Worrying too much about different things: 0 = Not at all Trouble relaxin = Not at all Being so restless that it is hard to sit still: 0 = Not at all Becoming easily annoyed or irritable: 0 = Not at all Feeling afraid as if something awful might happen: 0 = Not at all Total BRYAN-7 score (0-4 normal; 5-9 mild; 10-14 moderate; 15-21 severe): 0 Source: Developed by Drs. Dave Hickman, Lauren Barraza, Luis Rivera and colleagues, with an educational michaelle from [employer]. BRYAN-7 Assessment Billing BRYAN-7 Assessment Tool: BRYAN-7 Assessment 48621 Review of Systems Const Denies headache(s) Eyes Denies loss of vision ENT Denies vertigo, Denies dizziness, Denies headache(s) and Denies sore throat Card Denies chest pain, Denies leg edema and Denies lightheadedness Resp Denies cough, Denies hemoptysis and Denies wheezing GI Denies abdominal pain, Denies melena, Denies constipation, Denies diarrhea and Denies vomiting Denies dysuria, Denies urinary frequency and Denies urinary urgency Musc Denies arthralgias, Denies joint swelling, Denies numbness and Denies tingling Neuro Denies Abnormal speech present, Denies behavioral changes, Denies vertigo, Denies dizziness, Denies headache(s), Denies loss of vision, Denies memory loss, Denies numbness and Denies tingling Psych Denies anxiety, Denies behavioral changes, Denies depression, Denies memory loss and Denies panic attacks Kam/Lymph Denies easy bleeding and Denies easy bruising Aller/Immun Denies wheezing Physical exam (Primary Care) Vital Signs: Last Vital Signs Temp 97.1 F 01/23/25 10:23 Pulse 95 01/23/25 10:23 Resp 18 01/23/25 10:23 BP 120/86 01/23/25 10:23 Pulse Ox 95 01/23/25 10:23 Oxygen Delivery Method Room Air 01/23/25 10:23 BMI result Body Mass Index 30.1 Tobacco/Smoking Status: Tobacco use Status Tobacco use date assessed 01/23/25 01/23/25 10:24 Patient Tobacco Use Status Never used Tobacco 01/23/25 10:24 e-Cigarette/Vaping Use Never Used 01/23/25 10:24 PHQ-9: PHQ-9 Score PHQ-9: Total score 0 01/23/25 10:50 Depression Screening Interpretation: Negative Thrive Assessment: Date of Thrive Assessment Date Thrive assessed 01/23/25 01/23/25 10:24 Currently or been in a relationship where the following occur: No concerns reported Const General: healthy appearing, no acute distress, alert and awake Nutritional Appearance: well nourished Orientation/consciousness: oriented to person, oriented to place and oriented to time HENMT Ears: TM's normal bilaterally General nose exam: Normal nasal mucous membranes and turbinates present Eyes Conjunctivae: conjunctivae normal Sclerae: sclerae normal Pupils: Equal, round and reactive pupils present Neck Neck: Yes no lymphadenopathy and Yes no JVD Thyroid: Thyroid normal Carotids: no bruits Resp Effort & Inspection: normal respiratory effort and not tachypneic Auscultation: no crackles, no rales, no rhonchi and no wheezes Cardio Rate: regular rate Rhythm: regular rhythm Heart sounds: no murmurs and normal S1 and S2 GI Palpation (GI): Soft to palpation, nontender, no hepatomegaly and no splenomegaly Auscultation: normal bowel sounds Skin General skin exam: no rashes or lesions noted and dry skin Neuro General: oriented to person, oriented to place and oriented to time Cranial nerves: Yes Equal, round and reactive pupils present Speech: No Abnormal speech present Gait exam (Neuro): Normal gait present Motor exam (neuro): no tremor noted Extrem Right upper extremity: full ROM Left upper extremity: full ROM Right lower extremity: full ROM; no edema Left lower extremity: full ROM; no edema Psych Mental Status: mental status grossly normal Speech and movement: Normal speech and movement present Affect: normal affect Attitude: cooperative Thought process: Normal thought process present Coding Level of Care Code Est Pt Level 4 (23384) Diagnoses Mixed hyperlipidemia E78.2 Hyperlipidemia type: mixed hyperlipidemia Moderate persistent asthma without complication J45.41 Asthma complication type: with acute exacerbation BRYAN (generalized anxiety disorder) F41.1 Sensation of pressure in bladder area R39.89 Learning disability F81.9 Additional Codes BRYAN-7 Assessment Billing - BRYAN-7 Assessment Tool: BRYAN-7 Assessment 14897 ([id number]) PHQ-9 - 50021 - PHQ-9 Billing: Yes ([id number]) Assessment & Plan Assessment & Plan (1) HLD (hyperlipidemia): Code(s): E78.5 - Hyperlipidemia, unspecified Category: Medical Qualifiers: Hyperlipidemia type: mixed hyperlipidemia Qualified Code(s): E78.2 - Mixed hyperlipidemia Plan: He continues with statin therapy without side effect. Will get fasting labs to evaluate total cholesterol and LDL. Goal LDL is to be below 130 (2) Moderate persistent asthma: Comment: Pulmonary function test actually showed mild obstructive airway disorder but no response to BD This indicates chronic obstructive airway disorder , rather than bronchial asthma. He has had good response to the treatment with Advair 250-50 b.i.d. Code(s): J45.40 - Moderate persistent asthma, uncomplicated Category: Medical Qualifiers: Asthma complication type: with acute exacerbation Qualified Code(s): J45.41 - Moderate persistent asthma with (acute) exacerbation Plan: He reports his asthma has been well controlled since using a maintenance inhaler. He reports not having to use his albuterol inhaler much. Unfortunately still does smoke marijuana from time to time (3) BRYAN (generalized anxiety disorder): Code(s): F41.1 - Generalized anxiety disorder Category: Medical Plan: He reports his anxiety has been well controlled with nonpharmacological techniques. Does use hydroxyzine to sleep at times. (4) Sensation of pressure in bladder area: Code(s): R39.89 - Other symptoms and signs involving the genitourinary system Category: Medical Plan: As per HPI patient does report a lot of pelvic pressure and lower back pressure when he urinates. Will send for ultrasound of both bladder to evaluate for interstitial cystitis versus a bladder stone. (5) Learning disability: Code(s): F81.9 - Developmental disorder of scholastic skills, unspecified Category: Social Hx Plan: The patient has a learning disability that affects his ability to manage daily activities such as cooking and grocery shopping. He lives alone and has expressed difficulty in managing these tasks independently. Consideration for additional support services to assist with daily living activities is recommended. Orders: Orders US bladder Today R39.89 - Other symptoms and signs involving the genitourinary system Medications: Refilled atorvastatin 20 mg PO DAILY 90 tabs 1RF E78.5 - Hyperlipidemia, unspecified montelukast 10 mg PO BEDTIME 90 tabs 1RF J45.40 - Moderate persistent asthma, uncomplicated omeprazole 40 mg PO DAILY 90 caps 3RF K21.9 - Gastro-esophageal reflux disease without esophagitis fluticasone propion-salmeterol 250-50 mcg/dose (Advair Diskus) 1 inh inhalation BID 60 ea 3RF ASTHMA 30 days albuterol sulfate 90 mcg/actuation 2 puffs inhalation Q4-6H PRN 8.5 grams 2RF shortness of breath or wheezing J45.41 - Moderate persistent asthma with (acute) exacerbation hydroxyzine HCl 25 mg PO TID 90 tabs 2RF anxiety 30 days
--- OUTSIDE RECORDS SUMMARY | 2025-01-23 11:11 | XMS_ITS | Clinical Summary ---
Author Organization [facility] ity Address [address] [place] [address] Care Team Providers Care Quality Systems Engineer Name Role Phone Unavailable Primary Care Provider Unavailabl e Social History Tobacco Use Types Packs/Day Years Used Date Smoking Tobacco: Never Assessed Sex and Gender Information Value Date Recorded Sex Assigned at Not on file Legal Sex Male 8:45 PM EST Gender Identity Not on file Sexual Orientation Not on file Plan of Treatment Health Maintenance Due Date Last Done Comments DTaP,Tdap,and Td Vaccines (1 - Tdap) 10/07/2003 Hepatitis B Vaccines (1 of 3 - 19+ 3-dose series) 10/07/2003 Pneumococcal Vaccine: Pediat rics (0 to 5 Years) and At-Risk Patients (6 to 49 Years) (1 of 2 - PCV) 10/07/2003 Cholesterol Screening (Lipid Panel) 06/24/2023 HIV Screening 06/24/2023 Hepatitis C Screening 06/24/2023 Social Influencers of Health Screening 06/24/2023 COVID-19 Vaccine ( - 2023-2 5 season) 2024 Depression Screening 05/30/2024 Influenza Vaccine (#1) 2025 HIB Vaccines Aged Out No longer eligi ble based on patient's age to complete this topic HPV Vaccines Aged Out No longer eligi ble based on patient's age to complete this topic Hepatitis A Vaccines Aged Out No long er eligible based on patient's age to complete this topic IPV Vaccines Aged Out No longer eligi ble based on patient's age to complete this topic MMR Vaccines Aged Out No longer eligi ble based on patient's age to complete this topic Meningococcal ACWY Vaccine Aged Out N o longer eligible based on patient's age to complete this topic Meningococcal B Vaccine Aged Out No l onger eligible based on patient's age to complete this topic RSV Immunization Patients Un alcides 20 months Aged Out No longer eligible b ased on patient's age to complete this topic Varicella Vaccines Aged Out No longer eligible based on patient's age to complete this topic
== END 2025-01-23 10:59 | disposition home or self-care (01) ==
LOC: HO.HMCH 10:21
PROVIDERS: PCP Physician Assistant; Visit Provider Physician Assistant
DX: E78.2 Mixed hyperlipidemia (principal); J45.41 Moderate persistent asthma with (acute) exacerbation; F41.1 Generalized anxiety disorder; R39.89 Other symptoms and signs involving the genitourinary system; F81.9 Developmental disorder of scholastic skills, unspecified

== ENCOUNTER → 2025-01-23 10:21 | Outpatient (BNVA) | payer OTHER, SELFPAY | PROVIDERS: PCP Physician Assistant; Visit Provider Physician Assistant | DX: E78.2 Mixed hyperlipidemia (principal); R39.89 Other symptoms and signs involving the genitourinary system; J45.41 Moderate persistent asthma with (acute) exacerbation; E66.811 Obesity, class 1; G47.33 Obstructive sleep apnea (adult) (pediatric); F41.1 Generalized anxiety disorder; F81.9 Developmental disorder of scholastic skills, unspecified; Z99.89 Dependence on other enabling machines and devices; Z87.891 Personal history of nicotine dependence | CPT/HCPCS: 96127; 99212 ==